=== PATIENT | male | born 1955 | race Caucasian/White ===

== ENCOUNTER 2018-01-21 18:06 | Inpatient (IN) ==
--- NOTE | 2018-01-21 17:52 | Internal Med History&Physical ---
Date of Encounter: 01/21/18 Time of Encounter: 17:47 Internal Medicine - H&P: HPI Chief complaint: Femoral neck fracture Admitted From: Direct Admit Plans for Post Hospital Care: Home History of present illness: Mr. Martinez is a 62 year old male with history of congestive heart failure, A. fib status post ablation and status post pacemaker currently on Xarelto, CKD3, diabetes, gout, hypertension, depression, BPH who was transferred from [facility] after he was found to have an acute fracture of the right femoral neck. The patient tells me that about 9 days ago or so he tripped over a cord as cryogen and fell on his right hip. He had pain ever since. He was evaluated at the time and no fracture was found. He became walker dependent since then and today his try to reach something on the ground and he felt that his left hip gave out and he fell to his side with no loss of consciousness. He presented to [facility] because of that and was found to have an acute fracture of the right femoral neck and was sent here. Orthopedics were consulted from the ED there. The patient denies any dizziness, chest pain, shortness of breath, abdominal pain, diarrhea, constipation, blurry vision, headache, nausea, vomiting, fevers, chills. He was noted to have lower extremity swelling and when I questioned him about that he told me that about a month ago he had about 35 pounds fluid weight gain. He has been working with his primary care physician on that and has lost about 17 pounds of that in the last 2 weeks. He was recently also diagnosed with gout and was put on prednisone and remains on 20 mg for today and tomorrow with plans to go to 10 mg for the 3 days after that. The patient at baseline is very active. He denies any chest pain. He can walk multiple blocks with no issues. 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 Laboratory workup done at [facility] showed leukocytosis of 23.1. Rest of laboratory work was unremarkable except for elevated glucose of 220. Past Med Surg Social Fam HX - Past Medical History Medical history: atrial fibrillation, CHF, coronary artery disease, diabetes, hypertension Additional medical history: Gout, Pacemaker Psychiatric history: depression - Past Surgical History Surgical History: cataract, pacemaker/AICD, other Additional surgical history: R KNEE SCOPE, Cardiac ablation, Multiple heart caths - Social History Smoking Status: Never smoker Smokeless Tobacco Status: No Alcohol use: none Drug use: none - Family History Father Hx Family Cardiac Disorders: Yes Hx Family Cancer: Yes Hx Family Endocrine Disorder: Yes Sister Hx Family Cardiac Disorders: Yes Internal Medicine - H&P: Meds Aspirin [Adult Low Dose Aspirin EC] 81 mg PO DAILY 03/30/15 [History] Lisinopril [Zestril] 10 mg PO DAILY 03/30/15 [History] Metformin HCl [Fortamet] 1,000 mg PO DAILY 05/15/16 [History] Metoprolol XL (24 HR) Succ [Toprol XL] 50 mg PO BID 05/15/16 [History] Potassium Chloride [K-Tab ER] 10 meq PO BID 05/15/16 [History] Sertraline [Zoloft] 100 mg PO DAILY 05/15/16 [History] Torsemide [Demadex] 60 mg PO BID 05/15/16 [History] Cinnamon Bark [Cinnamon] 1,000 mg PO BID 10/23/17 [History] Ibuprofen [Motrin] 600 mg PO Q6HR #30 tab 10/23/17 [Rx] Melatonin 10 mg PO HS 10/23/17 [History] Rivaroxaban [Xarelto] 20 mg PO DAILY 10/23/17 [History] Tamsulosin [Flomax] 0.4 mg PO DAILY 10/23/17 [History] HYDROcodone/Acet 5/325 mg [[place] 5-325 mg] 1 tab PO Q6H 4 Days #14 tab 01/12/18 [Rx] 3 Allergy/AdvReac Type Severity Reaction Status Date / Time tetanus toxoid, adsorbed Allergy Hives Verified 05/15/16 19:15 All Systems PM: A 10-system review of systems was performed and is negative for pertinent findings except as documented above in the HPI. Review of systems: All systems reviewed are negative except for as mentioned above - Constitutional Vitals: Temp Pulse Resp BP Pulse Ox 98.1 F 62 20 147/81 95 01/21/18 17:01 01/21/18 17:01 01/21/18 17:01 01/21/18 17:01 01/21/18 17:01 Exam: GEN: NAD HEENT: AT, NC, No cyanosis, oral mucosa is moist, No JVD Lymphatics: No lymphadenoapthy Eyes: Extrocular muscles intact, anicteric CVS:RRR. S1, S2, No m/r/g RESP: Diminished but no crackles ABD: Soft, NT, ND, +BS EXT: 2+ lower extremity edema, No rashes, 2+ DP NEURO: Nonfocal, CN II-XII intact, No focal motor or sensory deficits Psych: Cooperative, Not anxious or depressed - Assessment and plan (1) Femoral neck fracture Current Visit: Yes Status: Acute Assessment and plan: We will admit the patient with a consult to orthopedics. Also consult cardiology for preop clearance. We will check an echocardiogram and an EKG. Pain control. Nothing by mouth after midnight. Qualifiers: Encounter type: initial encounter Fracture type: closed Laterality: right Qualified Code(s): S72.001A - Fracture of unspecified part of neck of right femur, initial encounter for closed fracture (2) CHF (congestive heart failure) Current Visit: Yes Status: Acute Assessment and plan: Patient is not in any respiratory distress. He does have lower extremity edema. He tells me he has had about 35 pounds weight gain over the last month and lost about 17 pounds of it on torsemide. We will check a BNP. Check a chest x-ray. An echo has been ordered. Resume torsemide. Consult cardiology for preop clearance as above. Qualifiers: Heart failure type: unspecified Heart failure chronicity: acute on chronic Qualified Code(s): I50.9 - Heart failure, unspecified (3) CKD (chronic kidney disease), stage III Current Visit: Yes Status: Acute Assessment and plan: Stable. We will monitor. (4) Diabetes mellitus Current Visit: Yes Status: Acute Assessment and plan: We will place the patient on insulin sliding scale. Accu-Cheks. 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 He has no signs of infection. Qualifiers: Leukocytosis type: unspecified Qualified Code(s): D72.829 - Elevated white blood cell count, unspecified (6) Gout Current Visit: Yes Status: Acute Assessment and plan: Patient has been receiving prednisone. We will hold off on further prednisone to allow for surgical site healing as he is expected to go to surgery. Qualifiers: Gout site: toe Gout etiology: unspecified cause Chronicity: unspecified Laterality: right Qualified Code(s): M10.9 - Gout, unspecified (7) Afib Current Visit: Yes Status: Acute Assessment and plan: Patient is on Xarelto for anticoagulation which I will hold in anticipation for surgery. Continue rate controlling agents. Qualifiers: Atrial fibrillation type: chronic Qualified Code(s): I48.2 - Chronic atrial fibrillation (8) DVT prophylaxis Current Visit: Yes Status: Acute Assessment and plan: Hold Xarelto for now. - Time Spent With Patient Total time spent is greater than 50% in coordination of care (as documented) at patient's floor/unit and/or counseling patient:
[~2018-01-21 18:06] MED LIST: *HR* Dextrose 50 % in Water (Syg) 50 ML SYRINGE IVP PRN; D5% in Water 1,000 ML IVC PRN; Dextrose Gel 15 GM/37.5 ML TUBE PO PRN; Naloxone 0.4 MG/ML INJ IVP PRN
--- NOTE | 2018-01-21 18:45 | Orthopedic Consult Note ---
Date of Encounter: 01/21/18 Time of Encounter: 18:42 Assessment and Plan (1) Femoral neck fracture Current Visit: Yes Status: Acute I did discuss the diagnosis in detail with the patient. He has a displaced right femoral neck fracture. I did discuss the treatment options and my recommendation given his age is for total hip arthroplasty. I discussed this with my partner Dr. Louise who performs total hips and his plan is to perform the procedure on Wednesday. Dr. Louise see the patient Wednesday morning to discuss this further with the patient. He will need medical clearance and holding of his Xarelto if medically reasonable per the primary team. I will order an [facility] CT scan of the right hip. Qualifiers: Encounter type: initial encounter Fracture type: closed Laterality: right Qualified Code(s): S72.001A - Fracture of unspecified part of neck of right femur, initial encounter for closed fracture History of Present Illness HPI: Mr. Martinez is a 62 year old male. He did sustain a fall about 10 days ago where he injured his right hip. He is seen in the [facility] emergency department where x-rays did not show any fractures. He is having difficulties walking since that time and was bending over and felt a pop in his right hip associate was significant pain. A CT scan demonstrated a displaced femoral neck fracture and he is transferred to our facility for definitive management. He complains of isolated pain to the right hip and groin region. It is worse with any movement and better with rest. No numbness, tingling, or any other associated signs or symptoms or modifying factors. Past Med Surg Social Fam HX - Past Medical History Medical history: atrial fibrillation, CHF, coronary artery disease, diabetes, hypertension Additional medical history: Gout, Pacemaker Psychiatric history: depression - Past Surgical History Surgical History: cataract, pacemaker/AICD, other Additional surgical history: R KNEE SCOPE, Cardiac ablation, Multiple heart caths - Social History Smoking Status: Never smoker Smokeless Tobacco Status: No Alcohol use: none Drug use: none - Family History Father Hx Family Cardiac Disorders: Yes Hx Family Cancer: Yes Hx Family Endocrine Disorder: Yes Sister Hx Family Cardiac Disorders: Yes Medications and Allergies Aspirin [Adult Low Dose Aspirin EC] 81 mg PO DAILY 03/30/15 [History] Metoprolol XL (24 HR) Succ [Toprol XL] 50 mg PO BID 05/15/16 [History] Potassium Chloride [K-Tab ER] 10 meq PO BID 05/15/16 [History] Sertraline [Zoloft] 100 mg PO DAILY 05/15/16 [History] Torsemide [Demadex] 60 mg PO BID 05/15/16 [History] Cinnamon Bark [Cinnamon] 1,000 mg PO BID 10/23/17 [History] Ibuprofen [Motrin] 600 mg PO Q6HR #30 tab 10/23/17 [Rx] Melatonin 10 mg PO HS 10/23/17 [History] Rivaroxaban [Xarelto] 20 mg PO DAILY 10/23/17 [History] Tamsulosin [Flomax] 0.4 mg PO DAILY 10/23/17 [History] HYDROcodone/Acet 5/325 mg [[place] 5-325 mg] 1 tab PO Q6H 4 Days #14 tab 01/12/18 [Rx] Polyethylene Glycol 3350 [MiraLAX] 17 gm PO DAILY 01/21/18 [History] SitaGLIPtin [Januvia] 100 mg PO DAILY 01/21/18 [History] 3 Allergy/AdvReac Type Severity Reaction Status Date / Time tetanus toxoid, adsorbed Allergy Hives Verified 05/15/16 19:15 All Systems Reviewed: Constitutional and musculoskeletal systems were reviewed and are negative unless otherwise stated in history of present illness. Physical Exam - Constitutional Vitals: Temp Pulse Resp BP Pulse Ox 98.4 F 60 18 160/79 97 01/21/18 18:34 01/21/18 18:34 01/21/18 18:34 01/21/18 18:34 01/21/18 18:34 Constitutional -Vitals reviewed -The patient is well developed and well nourished. -Mood is pleasant. -The patient is well groomed. Psychiatric -The patient is fully alert and oriented x 3. Respiratory: -Respiratory effort normal Abdomen: -Soft abdomen -Non tender -Non distended: Left upper extremity: -No deformities. The overlying skin is intact. No obvious signs of acute trauma. -No tenderness to palpation throughout. -No significant pain with passive motion of the shoulder, elbow, wrist, and fingers within the limits of the bed. -Able to make an "OK" sign, cross the index and long fingers, and extend the thumb. -Sensation grossly intact to light touch throughout the median, radial, and ulnar distributions. -Radial pulse is present; Fingers have good capillary refill. Right upper extremity: -No deformities. The overlying skin is intact. No obvious signs of acute trauma. -No tenderness to palpation throughout. -No significant pain with passive motion of the shoulder, elbow, wrist, and fingers within the limits of the bed. -Able to make an "OK" sign, cross the index and long fingers, and extend the thumb. -Sensation grossly intact to light touch throughout the median, radial, and ulnar distributions. -Radial pulse is present; Fingers have good capillary refill. Left lower extremity: -No deformities. The overlying skin is intact. No obvious signs of acute trauma. -No tenderness to palpation throughout. -No pain with passive motion of the hip, knee, ankle, and toes within the limits of the bed. -No pain with axial loading of the thigh. -Able to dorsiflex and plantarflex the ankle and toes. -Sensation is grossly intact to light touch throughout the sural, saphenous, superficial peroneal, and deep peroneal distributions. -Toes have good capillary refill. Right lower extremity: -The extremity is shortened and externally rotated. The overlying skin is intact. -There is tenderness in the groin region as well as the proximal lateral thigh. -I did not range the hip due to the known fracture. -No tenderness along the distal thigh, leg, ankle, foot, or toes. -Able to dorsiflex and plantarflex the ankle and toes. -Sensation is grossly intact to light touch throughout the sural, saphenous, superficial peroneal, and deep peroneal distributions. -Toes have good capillary refill. Diagnostic Imaging: I did personally review and interpret the CT scan of the right hip which shows a displaced right femoral neck fracture. Surgical clips from a prior vascular procedure noted. Results - Labs Labs: All other labs normal.
[2018-01-21] MEDS ORDERED: Perflutren Lipid Microsphere 1.3 ML in 0.9 % Sodium Chloride 8.7 ML IVP ONE (20:07)
[2018-01-21] MEDS ORDERED: Perflutren Lipid Microsphere 2 ML VIAL ONE (20:11)
[2018-01-21] MEDS ORDERED: *HR* Rivaroxaban 10 MG TABLET PO ONE (20:15)
[2018-01-21] MEDS: Insulin LISPRO 300 UNITS/3 ML VIAL SQ SCH (21:00)
[2018-01-21] MEDS: Metoprolol XL (24 HR) Succ 50 MG TAB.ER.24H PO SCH (21:00)
[2018-01-21] MEDS: *HR* HYDROcodone/Acet 5/325 mg TABLET PO PRN (21:01)
[2018-01-21] MEDS: Melatonin 3 MG TABLET PO SCH (21:01)
[2018-01-21] MEDS: Torsemide 20 MG TABLET PO SCH (21:02)
[2018-01-21 21:33] LABS: Bilirubin,Urine Negative (Negative); Blood,Urine Negative (Negative); Clarity,Urine Cloudy (Clear); Color,Urine Yellow (Yellow); Glucose,Urine (UA) Normal (Normal); Ketones,Urine Negative (Negative); Leukocyte Esterase,Urine Moderate (Negative); Nitrite,Urine Negative (Negative); Protein,Urine Negative (Neg-Trace); Specific Gravity,Urine 1.015 (1.010-1.025); Urobilinogen,Urine Normal (Normal)
[2018-01-21 21:37] LABS: Bacteria,Urine Many per hpf (None-Few); Hyaline Casts,Urine None Seen per lpf (None-Few); RBC,Urine 0-3 per hpf (0-3); Squamous Epithelial Cell,Urine Moderate per lpf (None-Few); WBC,Urine 15-30 per hpf (0-3)
[2018-01-21] MEDS: Acetaminophen 325 MG TABLET PO PRN (23:56)
[2018-01-22 01:17] LABS: Basophils % 0.2 %; Eosinophils % 0.2 %; Hemoglobin 13.5 g/dL (12.9-16.9); Immature Granulocytes % 1.1 % (0-4); Lymphocytes # 1.5 K/mcL (0.6-4.6); Lymphocytes % 8.2 %; Mean Corpuscular HGB Conc 32.9 g/dL (31.6-35.5); Mean Corpuscular Hemoglobin 29.2 pg (28.0-33.3); Mean Corpuscular Volume 88.7 fL (83.0-100.0); Mean Platelet Volume 11.3 fL (9.4-12.4); Monocytes % 10.4 %; Neutrophils # 14.9 K/mcL (1.6-8.9); Platelet Count 205 K/mcL (140-400); Red Blood Count 4.62 M/mcL (4.19-5.50); Red Cell Distribution Width 14.8 % (11.5-14.5); Segmented Neutrophils % 79.9 %
[2018-01-22 01:24] LABS: INR 1.9; Prothrombin Time 20.9 Seconds (9.4-12.1)
[2018-01-22 01:34] LABS: BUN/Creatinine Ratio 23 (6-26); Blood Urea Nitrogen 28 mg/dL (8-23); Calcium 9.3 mg/dL (8.6-10.3); Carbon Dioxide 28 mEq/L (23-29); Chloride 96 mEq/L (98-107); Glucose 300 mg/dL (70-105); Magnesium 2.2 mg/dL (1.6-2.6); Osmolality,Calculated 299 (280-300); Sodium 136 mEq/L (136-145); eGFR For African Americans > 60 (> 60); eGFR For Non-African Americans > 60 (> 60)
[2018-01-22] MEDS: *HR* HYDROcodone/Acet 5/325 mg TABLET PO PRN (04:41)
[2018-01-22] MEDS: Torsemide 20 MG TABLET PO SCH ×2 (07:52→16:18)
[2018-01-22] MEDS: Metoprolol XL (24 HR) Succ 50 MG TAB.ER.24H PO SCH ×2 (07:53→19:57)
[2018-01-22] MEDS: Insulin LISPRO 300 UNITS/3 ML VIAL SQ SCH ×4 (07:54→20:17)
--- NOTE | 2018-01-22 08:47 | Orthopedics Progress Note ---
Date of Encounter: 01/22/18 Time of Encounter: 08:45 - Assessment and Plan (1) Femoral neck fracture Current Visit: Yes Status: Acute Qualifiers: Encounter type: initial encounter Fracture type: closed Laterality: right Qualified Code(s): S72.001A - Fracture of unspecified part of neck of right femur, initial encounter for closed fracture Subjective Interval history: S: The patient is resting in bed though he does have significant right hip and groin pain. Currently he is only getting [place] and Tylenol. O: Afebrile on the vital signs are stable Right hip and groin pain with any motion of the right hip. Neurovascularly intact distally A: Right displaced femoral neck fracture P: Plan is for robotic total hip arthroplasty on Wednesday with my partner Dr. Louise I did adjust the patient's pain medication and change the [place] to Percocet as well as adding sublingual oxycodone and Flexeril. Hold Xarelto tonight and tomorrow. Objective Vital signs: Vital Signs Temp Pulse Resp BP Pulse Ox 01/22/18 07:21 98.5 F 87 20 155/84 98 01/22/18 02:45 98.6 F 58 16 143/81 99 01/21/18 23:14 99.2 F 63 18 153/72 98 01/21/18 18:34 98.4 F 60 18 160/79 97 01/21/18 17:01 98.1 F 62 20 147/81 95 Intake and Output 01/21/18 01/22/18 01/22/18 23:59 07:59 15:59 Intake Total 600 / 600 Output Total 525 / 525 1200 / 1200 Balance 75 / 75 -1200 / -1200 Intake: Oral 600 / 600 Output: Urine 525 / 525 1200 / 1200 Other: Weight 111.3 kg Blood Glucose* 207 215 - Labs CBC & BMP: 01/22/18 00:41 01/22/18 00:41 Labs: Abnormal lab results WBC 18.7 K/mcL (4.3-11.1) H 01/22/18 00:41 RDW 14.8 % (11.5-14.5) H 01/22/18 00:41 Neutrophils # 14.9 K/mcL (1.6-8.9) H 01/22/18 00:41 Monocytes # 2.0 K/mcL (0.0-1.3) H 01/22/18 00:41 PT 20.9 Seconds (9.4-12.1) H 01/22/18 00:41 Chloride 96 mEq/L (98-107) L 01/22/18 00:41 BUN 28 mg/dL (8-23) H 01/22/18 00:41 Glucose 300 mg/dL (70-105) H 01/22/18 00:41 POC Glucose 207 mg/dL (70-99) H 01/21/18 20:48 B-Natriuretic Peptide 253 pg/mL (Less than 100) H 01/21/18 18:04 Urine Clarity Cloudy (Clear) A 01/21/18 21:05 Ur Leukocyte Esterase Moderate (Negative) H 01/21/18 21:05 Urine Microscopic WBC 15-30 per hpf (0-3) H 01/21/18 21:05 Ur Squamous Epith Cells Moderate per lpf (None-Few) H 01/21/18 21:05 Urine Bacteria Many per hpf (None-Few) H 01/21/18 21:05 Ur Culture Indicated? YES (NO) A 01/21/18 21:05
--- NOTE | 2018-01-22 09:18 | Electrophysiology Consult Note ---
Date of Encounter: 01/22/18 Time of Encounter: 09:13 Assessment and Plan (1) Afib Current Visit: Yes Status: Acute Known AF, rate controlled. Possible prior AVN ablation and AF ablation. Qualifiers: Atrial fibrillation type: paroxysmal Qualified Code(s): I48.0 - Paroxysmal atrial fibrillation (2) Femoral neck fracture Current Visit: Yes Status: Acute Low risk for surgery. No further testing needed. Qualifiers: Encounter type: initial encounter Fracture type: closed Laterality: right Qualified Code(s): S72.001A - Fracture of unspecified part of neck of right femur, initial encounter for closed fracture Discussion w patient/family: The assessment and plan as outlined above was discussed with the patient and/or family members who expressed understanding and agreement. All questions were answered. Thank you for involving us in the care of your patient. Please call with any questions. History of Present Illness Consult date: 01/22/18 Requesting physician: Vladimir Louise Consult reason: Pre op Chief complaint: Hip pain History of present illness: Mr. Martinez is a 62 year old male with history of PAF and bradycardia S/P pacemaker. He suffered an mechanical fall and requires hip surgery. 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 He has had subequent heart caths and stress tests that have been negative. he denies chest pain or SOB. Past Med Surg Social Fam HX - Past Medical History Medical history: atrial fibrillation, CHF, coronary artery disease, diabetes, hypertension Additional medical history: Gout, Pacemaker Psychiatric history: depression - Past Surgical History Surgical History: cataract, pacemaker/AICD, other Additional surgical history: R KNEE SCOPE, Cardiac ablation, Multiple heart caths - Social History Smoking Status: Never smoker Smokeless Tobacco Status: No Alcohol use: none Drug use: none - Family History Father Hx Family Cardiac Disorders: Yes Hx Family Cancer: Yes Hx Family Endocrine Disorder: Yes Sister Hx Family Cardiac Disorders: Yes Medications and Allergies Aspirin [Adult Low Dose Aspirin EC] 81 mg PO DAILY 03/30/15 [History] Metoprolol XL (24 HR) Succ [Toprol XL] 50 mg PO BID 05/15/16 [History] Potassium Chloride [K-Tab ER] 10 meq PO BID 05/15/16 [History] Sertraline [Zoloft] 100 mg PO DAILY 05/15/16 [History] Torsemide [Demadex] 60 mg PO BID 05/15/16 [History] Cinnamon Bark [Cinnamon] 1,000 mg PO BID 10/23/17 [History] Ibuprofen [Motrin] 600 mg PO Q6HR #30 tab 10/23/17 [Rx] Melatonin 10 mg PO HS 10/23/17 [History] Rivaroxaban [Xarelto] 20 mg PO DAILY 10/23/17 [History] Tamsulosin [Flomax] 0.4 mg PO DAILY 10/23/17 [History] HYDROcodone/Acet 5/325 mg [Sharon 5-325 mg] 1 tab PO Q6H 4 Days #14 tab 01/12/18 [Rx] Polyethylene Glycol 3350 [MiraLAX] 17 gm PO DAILY 01/21/18 [History] SitaGLIPtin [Januvia] 100 mg PO DAILY 01/21/18 [History] 3 Allergy/AdvReac Type Severity Reaction Status Date / Time tetanus toxoid, adsorbed Allergy Hives Verified 05/15/16 19:15 All Systems Review: The remainder of the systems were reviewed and are negative Physical Examination Vital Signs, Last 4 Hours Temp Pulse Resp BP Pulse Ox 01/22/18 07:21 98.5 F 87 20 155/84 98 General: Conversant, No Apparent Distress HEENT: Atraumatic, Normocephaly, Mucus Membranes Moist Neck: No JVD, Normal carotid pulses Cardiac: Other (Regular, pacer site normal) Lungs: Normal Breath Sounds, No Wheeze, Rales, Rhonchi Neuro: Alert and responsive, No focal deficits noted Skin: No rashes noted on visualized skin Results 01/22/18 00:41 01/22/18 00:41 Lab Results 01/21/18 01/22/18 01/22/18 18:04 00:41 00:41 WBC 18.7 H Hgb 13.5 Hct 41.0 Plt Count 205 INR 1.9 Sodium Potassium Chloride Carbon Dioxide BUN Creatinine Glucose Calcium Magnesium B-Natriuretic Peptide 253 H 01/22/18 00:41 WBC Hgb Hct Plt Count INR Sodium 136 Potassium 4.0 Chloride 96 L Carbon Dioxide 28 BUN 28 H Creatinine 1.22 Glucose 300 H Calcium 9.3 Magnesium 2.2 B-Natriuretic Peptide - Imaging and Cardiology Echo: report reviewed (Low normal systolic function.) - EKG Interpretation EKG results cardiology: personally reviewed (AF, ventricular pacing)
[2018-01-22] MEDS: *HR* OxyCODONE/APAP 5/325 TABLET PO PRN ×3 (09:19→20:09)
[2018-01-22] MEDS: OXYCODONE Oral CONC 10 MG/0.5 ML ORAL.SYG SL PRN (12:07)
--- NOTE | 2018-01-22 14:59 | Internal Med Progress Note ---
Date of Encounter: 01/22/18 Time of Encounter: 14:25 - Assessment and plan (1) Femoral neck fracture Current Visit: Yes Status: Acute Assessment and plan: Appreciate ortho input. Plan for total hip replacement on Wednesday. Pain control. Qualifiers: Encounter type: subsequent encounter Fracture type: closed Laterality: right Qualified Code(s): S72.001D - Fracture of unspecified part of neck of right femur, subsequent encounter for closed fracture with routine healing (2) CHF (congestive heart failure) Current Visit: Yes Status: Acute Assessment and plan: Currently on Torsemide. Echo shows EF 50%. Appreciate cardiology input today. Qualifiers: Heart failure type: diastolic Heart failure chronicity: acute on chronic Qualified Code(s): I50.33 - Acute on chronic diastolic (congestive) heart failure (3) CKD (chronic kidney disease), stage III Current Visit: Yes Status: Acute Assessment and plan: Stable. We will monitor. Avoid nephrotoxins. 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 He has no signs of infection. Qualifiers: Leukocytosis type: leukemoid reaction Qualified Code(s): D72.823 - Leukemoid reaction (6) Gout Current Visit: Yes Status: Acute Assessment and plan: Patient has been receiving prednisone. We will hold off on further prednisone to allow for surgical site healing as he is expected to go to surgery. Qualifiers: Gout site: toe Gout etiology: unspecified cause Chronicity: unspecified Laterality: right Qualified Code(s): M10.9 - Gout, unspecified (7) DVT prophylaxis Current Visit: Yes Status: Acute (8) Afib Current Visit: Yes Status: Acute Assessment and plan: Patient is on Xarelto for anticoagulation which I will hold in anticipation for surgery. Continue rate controlling agents. Appreciate cardiology input. Qualifiers: Atrial fibrillation type: paroxysmal Qualified Code(s): I48.0 - Paroxysmal atrial fibrillation - Time Spent With Patient Total time spent is greater than 50% in coordination of care (as documented) at patient's floor/unit and/or counseling patient: - Subjective Interval history: Mr Martinez is currently admitted with fracture R hip. He remains moderate to high risk due to potential for worsening clinical status. Mr Martinez is having pain. Meds were changed today. No fever or chills. Awaiting surgery. Hard to get comfortable. - Constitutional Vitals: Temp Pulse Resp BP Pulse Ox 99.1 F 62 18 137/77 98 01/22/18 11:27 01/22/18 11:27 01/22/18 11:27 01/22/18 11:27 01/22/18 11:27 General appearance: Present: A&O X 3, answers questions appropriately - Head Head exam: Present: normocephalic - Eye Eye exam: Present: conjuntiva pink - ENT ENT exam: Present: mucous membranes moist - Respiratory Respiratory exam: Present: CTAB. Absent: rales, rhonchi, wheezes - Cardiovascular Cardiovascular exam: Present: RRR. Absent: tachycardia - GI/Abdominal GI/Abdominal exam: Present: soft. Absent: tenderness - Extremities Exam Extremities exam: Present: tenderness, warm Additional comments: R hip pain - Neurological Exam Neurological exam: Present: alert, oriented X3 - Skin Skin exam: Present: dry, warm Internal Medicine: Result - Labs CBC & Chem 7: 01/22/18 00:41 01/22/18 00:41 Labs: Short CBC 01/22/18 Range/Units 00:41 WBC 18.7 H (4.3-11.1) K/mcL Hgb 13.5 (12.9-16.9) g/dL Hct 41.0 (37.5-50.1) % Plt Count 205 (140-400) K/mcL Neutrophils # 14.9 H (1.6-8.9) K/mcL BMP 01/22/18 00:41 Sodium 136 Potassium 4.0 Chloride 96 L Carbon Dioxide 28 BUN 28 H Creatinine 1.22 Glucose 300 H Calcium 9.3 Urine 01/21/18 Range/Units 21:05 Urine Color Yellow (Yellow) Urine Clarity Cloudy A (Clear) Urine pH 6.0 (5.0-8.0) pH Units Ur Specific [place] 1.015 (1.010-1.025) Urine Protein Negative (Neg-Trace) mg/dL Urine Glucose (UA) Normal (Normal) mg/dL - ABG Interpretation ABG results: PT/INR, D-dimer PT 20.9 Seconds (9.4-12.1) H 01/22/18 00:41 - Impressions Impressions Chest X-Ray 01/21/18 17:34 IMPRESSION: No acute cardiopulmonary disease. Mild cardiomegaly without failure. D/ / Keegan Peña MD / Keegan Peña MD Interpreting Provider: Keegan Peña MD Echocardiogram 01/21/18 17:34 Impressions: LVEF 50%. Normal LV chamber size, wall thickness and function. Indeterminate diastolic function. Atypical septal motion consistent with paced rhythm. Normal right ventricular structure and function. No significant valvular dysfunction. No evidence of pulmonary hypertension. A device lead was visualized in the right atrium and right ventricle. Left Ventricular Wall Motion: Rest Echo Findings All wall segments showed normal motion. Findings: Study Quality * Technically adequate exam. ECG Findings * Paced rhythm. Left Ventricle * LVEF 50%. * Normal LV chamber size, wall thickness and function. * Indeterminate diastolic function. * Atypical septal motion consistent with paced rhythm. Right Ventricle * Normal right ventricular structure and function. Left Atrium * Moderately dilated left atrium. Right Atrium * Normal right atrial size. Aortic Valve * Aortic valve not well visualized. * Grossly calcified aortic valve leaflets. * No aortic regurgitation. * No aortic stenosis. Mitral Valve * Mild mitral annular calcification * Trace mitral regurgitation. * No mitral stenosis. Tricuspid Valve * Normal tricuspid valve structure and function. * Trace tricuspid regurgitation. * No evidence of pulmonary hypertension. Pulmonic Valve * Pulmonic valve is not well visualized. Aorta * Normally sized aortic root. Pericardium * The pericardium appears normal. IVC * Normal IVC dimensions and inspiratory collapse. Pulmonary Artery * Normal visualized portions of the main pulmonary artery. Device lead * A device lead was visualized in the right atrium and right ventricle. Hip CT 01/21/18 19:49 IMPRESSION: 1. Limited CT [facility] protocol for preoperative planning. 2. Re- demonstration of acute transcervical right femoral neck fracture. 3. Moderate osteoarthritis of the bilateral hips. D/ / Ian Rod MD / Ian Rod MD Interpreting Provider: Ian Rod MD
[2018-01-22] MEDS ORDERED: *HR* Enoxaparin 30 MG/0.3 ML SYRINGE SQ ONE (15:28)
[2018-01-22] MEDS: Melatonin 3 MG TABLET PO SCH (19:57)
[2018-01-22] MEDS: Insulin DETEMIR 100 UNIT/ML X5UNITS SQ SCH (20:11)
[2018-01-23 01:59] LABS: Hematocrit 40.2 % (37.5-50.1); Mean Corpuscular HGB Conc 32.3 g/dL (31.6-35.5); Mean Corpuscular Hemoglobin 28.1 pg (28.0-33.3); Mean Platelet Volume 11.1 fL (9.4-12.4); Platelet Count 153 K/mcL (140-400); Red Blood Count 4.62 M/mcL (4.19-5.50); Red Cell Distribution Width 15.1 % (11.5-14.5)
[2018-01-23 02:20] LABS: BUN/Creatinine Ratio 21 (6-26); Blood Urea Nitrogen 28 mg/dL (8-23); Calcium 9.4 mg/dL (8.6-10.3); Carbon Dioxide 32 mEq/L (23-29); Chloride 96 mEq/L (98-107); Glucose 151 mg/dL (70-105); Magnesium 2.1 mg/dL (1.6-2.6); Osmolality,Calculated 288 (280-300); Potassium 3.3 mEq/L (3.5-5.1); Sodium 135 mEq/L (136-145); eGFR For African Americans > 60 (> 60); eGFR For Non-African Americans 54 (> 60)
[2018-01-23] MEDS: *HR* OxyCODONE/APAP 5/325 TABLET PO PRN ×3 (02:35→20:42)
[2018-01-23] MEDS ORDERED: *HR* Enoxaparin 30 MG/0.3 ML SYRINGE SQ ONE (06:00)
[2018-01-23] MEDS: Insulin LISPRO 300 UNITS/3 ML VIAL SQ SCH ×4 (07:45→22:36)
[2018-01-23] MEDS: OXYCODONE Oral CONC 10 MG/0.5 ML ORAL.SYG SL PRN ×2 (07:49→16:51)
[2018-01-23] MEDS: Metoprolol XL (24 HR) Succ 50 MG TAB.ER.24H PO SCH ×2 (07:49→20:42)
[2018-01-23] MEDS: Torsemide 20 MG TABLET PO SCH ×2 (07:49→16:50)
--- NOTE | 2018-01-23 09:42 | Orthopedics Progress Note ---
Date of Encounter: 01/23/18 Time of Encounter: 09:40 - Assessment and Plan (1) Femoral neck fracture Current Visit: Yes Status: Acute Qualifiers: Encounter type: subsequent encounter Fracture type: closed Laterality: right Qualified Code(s): S72.001D - Fracture of unspecified part of neck of right femur, subsequent encounter for closed fracture with routine healing Subjective Interval history: S: Pain in the right hip and much better control. O: Afebrile on the vital signs are stable Right hip and groin pain with any motion of the right hip. Neurovascularly intact distally A: Right displaced femoral neck fracture P: Plan for robotic right total hip tomorrow with Dr. Louise. Objective Vital signs: Vital Signs Temp Pulse Resp BP Pulse Ox 01/23/18 07:53 98 01/23/18 06:30 98.4 F 68 16 129/68 98 01/23/18 04:25 98.6 F 60 16 126/72 96 01/22/18 23:24 98.6 F 61 14 132/72 99 01/22/18 20:09 98.6 F 62 16 127/70 93 01/22/18 15:53 98.9 F 58 20 117/52 97 01/22/18 11:27 99.1 F 62 18 137/77 98 Intake and Output 01/22/18 01/23/18 01/23/18 23:59 07:59 15:59 Intake Total 500 / 500 Output Total 500 / 500 550 / 550 Balance 0 / 0 -550 / -550 Intake: Oral 500 / 500 Output: Urine 500 / 500 550 / 550 Other: Blood Glucose* 154 101 - Labs CBC & BMP: 01/23/18 00:57 01/23/18 00:57 Labs: Abnormal lab results WBC 14.7 K/mcL (4.3-11.1) H 01/23/18 00:57 RDW 15.1 % (11.5-14.5) H 01/23/18 00:57 Neutrophils # 14.9 K/mcL (1.6-8.9) H 01/22/18 00:41 Monocytes # 2.0 K/mcL (0.0-1.3) H 01/22/18 00:41 PT 20.9 Seconds (9.4-12.1) H 01/22/18 00:41 Sodium 135 mEq/L (136-145) L 01/23/18 00:57 Potassium 3.3 mEq/L (3.5-5.1) L 01/23/18 00:57 Chloride 96 mEq/L (98-107) L 01/23/18 00:57 Carbon Dioxide 32 mEq/L (23-29) H 01/23/18 00:57 BUN 28 mg/dL (8-23) H 01/23/18 00:57 Creatinine 1.34 mg/dL (0.70-1.30) H 01/23/18 00:57 Est GFR (Non-Af Amer) 54 (> 60) L 01/23/18 00:57 Glucose 151 mg/dL (70-105) H 01/23/18 00:57 POC Glucose 154 mg/dL (70-99) H 01/22/18 20:15 B-Natriuretic Peptide 253 pg/mL (Less than 100) H 01/21/18 18:04 Urine Clarity Cloudy (Clear) A 01/21/18 21:05 Ur Leukocyte Esterase Moderate (Negative) H 01/21/18 21:05 Urine Microscopic WBC 15-30 per hpf (0-3) H 01/21/18 21:05 Ur Squamous Epith Cells Moderate per lpf (None-Few) H 01/21/18 21:05 Urine Bacteria Many per hpf (None-Few) H 01/21/18 21:05 Ur Culture Indicated? YES (NO) A 01/21/18 21:05 - VTE Documentation of Mechanical Device: Intermittent pneumatic compression device
--- NOTE | 2018-01-23 11:05 | Internal Med Progress Note ---
Date of Encounter: 01/23/18 Time of Encounter: 10:30 - Assessment and plan (1) Femoral neck fracture Current Visit: Yes Status: Acute Assessment and plan: Appreciate ortho input. Plan for total hip replacement tomorrow. Pain seems better controlled today. Qualifiers: Encounter type: subsequent encounter Fracture type: closed Laterality: right Qualified Code(s): S72.001D - Fracture of unspecified part of neck of right femur, subsequent encounter for closed fracture with routine healing (2) CHF (congestive heart failure) Current Visit: Yes Status: Chronic Assessment and plan: Currently on Torsemide. Symptoms appear to have resolved at this time. Qualifiers: Heart failure type: diastolic Heart failure chronicity: chronic Qualified Code(s): I50.32 - Chronic diastolic (congestive) heart failure (3) CKD (chronic kidney disease), stage III Current Visit: Yes Status: Chronic Assessment and plan: Stable. We will monitor. Avoid nephrotoxins. (4) Diabetes mellitus Current Visit: Yes Status: Chronic Assessment and plan: Currently on accuchecks and coverage. 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 Qualifiers: Leukocytosis type: leukemoid reaction Qualified Code(s): D72.823 - Leukemoid reaction (6) Gout Current Visit: Yes Status: Acute Assessment and plan: Patient has been receiving prednisone. No symptoms at this time. Prednisone held. Qualifiers: Gout site: toe Gout etiology: unspecified cause Chronicity: unspecified Laterality: right Qualified Code(s): M10.9 - Gout, unspecified (7) DVT prophylaxis Current Visit: Yes Status: Acute (8) Afib Current Visit: Yes Status: Acute Assessment and plan: Patient is on Xarelto for anticoagulation which is held in anticipation for surgery. Continue rate controlling agents. Appreciate cardiology input. Qualifiers: Atrial fibrillation type: paroxysmal Qualified Code(s): I48.0 - Paroxysmal atrial fibrillation - Time Spent With Patient Total time spent is greater than 50% in coordination of care (as documented) at patient's floor/unit and/or counseling patient: - Subjective Interval history: Mr Martinez is currently admitted with fracture R hip. He remains moderate to high risk due to potential for worsening clinical status. Mr Martinez feels his pain is better controlled today. No fever or chills. No CP or SOB. To have surgery tomorrow. - Constitutional Vitals: Temp Pulse Resp BP Pulse Ox 98.4 F 68 16 129/68 98 01/23/18 06:30 01/23/18 06:30 01/23/18 06:30 01/23/18 06:30 01/23/18 07:53 General appearance: Present: A&O X 3, answers questions appropriately - Head Head exam: Present: normocephalic - Eye Eye exam: Present: conjuntiva pink - ENT ENT exam: Present: mucous membranes moist - Respiratory Respiratory exam: Present: CTAB. Absent: rales, rhonchi, wheezes - Cardiovascular Cardiovascular exam: Present: RRR. Absent: tachycardia - GI/Abdominal GI/Abdominal exam: Present: soft. Absent: tenderness - Extremities Exam Extremities exam: Present: tenderness, warm - Neurological Exam Neurological exam: Present: alert, oriented X3 - Skin Skin exam: Present: dry, warm Internal Medicine: Result - Labs CBC & Chem 7: 01/23/18 00:57 01/23/18 00:57 Labs: Short CBC 01/23/18 Range/Units 00:57 WBC 14.7 H (4.3-11.1) K/mcL Hgb 13.0 (12.9-16.9) g/dL Hct 40.2 (37.5-50.1) % Plt Count 153 (140-400) K/mcL BMP 01/23/18 00:57 Sodium 135 L Potassium 3.3 L Chloride 96 L Carbon Dioxide 32 H BUN 28 H Creatinine 1.34 H Glucose 151 H Calcium 9.4 - ABG Interpretation ABG results: PT/INR, D-dimer PT 20.9 Seconds (9.4-12.1) H 01/22/18 00:41 - VTE Documentation of Mechanical Device: Intermittent pneumatic compression device
[2018-01-23] MEDS: Melatonin 3 MG TABLET PO SCH (20:41)
[2018-01-23] MEDS: Insulin DETEMIR 100 UNIT/ML X5UNITS SQ SCH (20:43)
--- NOTE | 2018-01-23 23:31 | Anesthesia Evaluation PreOp ---
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: Other (Anxiety/Depression) Other Medical History: Renal (stage 3 CKD), Other (Recent Hx of gout including Prednisone course) Anesthesia History: Past Anesthesia (R-knee scope, Cardiac ablation, Multiple Heart Caths) Alcohol Use: none Drug use: none Medications and Allergies Metoprolol XL (24 HR) Succ [Toprol XL] 50 mg PO BID 05/15/16 [History] Sertraline [Zoloft] 100 mg PO DAILY 05/15/16 [History] Torsemide [Demadex] 60 mg PO BID 05/15/16 [History] Cinnamon Bark [Cinnamon] 1,000 mg PO BID 10/23/17 [History] Melatonin 10 mg PO HS 10/23/17 [History] Rivaroxaban [Xarelto] 20 mg PO DAILY 10/23/17 [History] Tamsulosin [Flomax] 0.4 mg PO DAILY 10/23/17 [History] HYDROcodone/Acet 5/325 mg [[place] 5-325 mg] 1 tab PO Q6H 4 Days #14 tab 01/12/18 [Rx] Polyethylene Glycol 3350 [MiraLAX] 17 gm PO DAILY 01/21/18 [History] SitaGLIPtin [Januvia] 100 mg PO DAILY 01/21/18 [History] Aspirin [Adult Aspirin Regimen] 81 mg PO DAILY 01/22/18 [History] C/Sourcherry/Celery/Grape Seed [Tart [place] Capsule] 1 cap PO DAILY 01/22/18 [ History] Insulin ASPART [Novolog Flexpen] 2 unit SQ TIDWM 01/22/18 [History] Insulin Glargine,Hum.rec.anlog [Toujeo Solostar] 15 units SQ HS 01/22/18 [ History] Multivitamin [One Daily Essential] 1 tab PO DAILY 01/22/18 [History] Omeprazole/Sodium Bicarbonate [Zegerid 20 mg Capsule] 1 cap PO Q48H PRN [History] Potassium Chloride [Klor-Con 10] 10 meq PO BID 01/22/18 [History] 3 Allergy/AdvReac Type Severity Reaction Status Date / Time tetanus toxoid, adsorbed Allergy Hives Verified 01/22/18 10:11 NSAIDS (Non-Steroidal AdvReac See Verified 01/22/18 10:38 Anti-Inflamma Comments - Meds/Allergy Pre-op Review Medications Reviewed: Yes Allergies Reviewed: Yes Beta Blockers on Current Med List: Yes (Carvedilol home med) If Beta Blockers taken, Date/Time (Last Dose taken): Metoprolol 01/23/2018 @ 204 Anesthesia Results - Labs 01/23/18 00:57 01/23/18 00:57 Laboratory Tests 10/20/17 01/21/18 01/21/18 08:29 13:55 18:04 WBC Hgb Hct Plt Count PT INR APTT 31.3 Creatinine Est GFR (Non-Af Amer) Glucose POC Glucose Est Mean Plasma Glucose 166 Hemoglobin A1c 7.4 H B-Natriuretic Peptide 253 H 01/22/18 01/22/18 01/23/18 00:41 20:15 00:57 WBC 14.7 H Hgb 13.0 Hct 40.2 Plt Count 153 PT 20.9 H INR 1.9 APTT Creatinine Est GFR (Non-Af Amer) Glucose POC Glucose 154 H Est Mean Plasma Glucose Hemoglobin A1c B-Natriuretic Peptide 01/23/18 00:57 WBC Hgb Hct Plt Count PT INR APTT Creatinine 1.34 H Est GFR (Non-Af Amer) 54 L Glucose 151 H POC Glucose Est Mean Plasma Glucose Hemoglobin A1c B-Natriuretic Peptide Impressions Chest X-Ray 01/21/18 17:34 IMPRESSION: No acute cardiopulmonary disease. Mild cardiomegaly without failure. D/ / Keegan Peña MD / Keegan Peña MD Interpreting Provider: Keegan Peña MD Echocardiogram 01/21/18 17:34 Impressions: LVEF 50%. Normal LV chamber size, wall thickness and function. Indeterminate diastolic function. Atypical septal motion consistent with paced rhythm. Normal right ventricular structure and function. No significant valvular dysfunction. No evidence of pulmonary hypertension. A device lead was visualized in the right atrium and right ventricle. Left Ventricular Wall Motion: Rest Echo Findings All wall segments showed normal motion. Findings: Study Quality * Technically adequate exam. ECG Findings * Paced rhythm. Left Ventricle * LVEF 50%. * Normal LV chamber size, wall thickness and function. * Indeterminate diastolic function. * Atypical septal motion consistent with paced rhythm. Right Ventricle * Normal right ventricular structure and function. Left Atrium * Moderately dilated left atrium. Right Atrium * Normal right atrial size. Aortic Valve * Aortic valve not well visualized. * Grossly calcified aortic valve leaflets. * No aortic regurgitation. * No aortic stenosis. Mitral Valve * Mild mitral annular calcification * Trace mitral regurgitation. * No mitral stenosis. Tricuspid Valve * Normal tricuspid valve structure and function. * Trace tricuspid regurgitation. * No evidence of pulmonary hypertension. Pulmonic Valve * Pulmonic valve is not well visualized. Aorta * Normally sized aortic root. Pericardium * The pericardium appears normal. IVC * Normal IVC dimensions and inspiratory collapse. Pulmonary Artery * Normal visualized portions of the main pulmonary artery. Device lead * A device lead was visualized in the right atrium and right ventricle. Hip CT 01/21/18 19:49 IMPRESSION: 1. Limited CT [facility] protocol for preoperative planning. 2. Re- demonstration of acute transcervical right femoral neck fracture. 3. Moderate osteoarthritis of the bilateral hips. D/ / Ian Rod MD / Ian Rod MD Interpreting Provider: Ian Rod MD Anesthesia Exam Vital Signs Temp Pulse Resp BP Pulse Ox 01/23/18 22:33 99.5 F 62 16 144/78 96 01/23/18 18:37 99.0 F 60 16 137/71 94 01/23/18 14:11 98.2 F 81 16 129/78 99 01/23/18 10:19 98.5 F 73 16 134/76 98 01/23/18 07:53 98 01/23/18 06:30 98.4 F 68 16 129/68 98 01/23/18 04:25 98.6 F 60 16 126/72 96 Intake and Output 01/23/18 01/23/18 01/23/18 07:59 15:59 23:59 Intake Total 500 / 500 Output Total 550 / 550 700 / 700 700 / 700 Balance -550 / -550 -200 / -200 -700 / -700 Intake: Oral 500 / 500 Output: Urine 550 / 550 700 / 700 700 / 700 Other: Meal Lunch Percent of Meal Consumed 60% Blood Glucose* 101 127 150 Anesthesia Assess/Plan ASA Score: 3 (AFib, HTN, CHF Anxiety/Depression, Stae 3 CKDz, DM) Modified Fernie Scale for Level of Consciousness: Cooperative, oriented, and tranquil Anesthetic Plan: General Monitoring Plan: Standard Monitors Recovery Plan: PACU
[2018-01-24 01:21] LABS: Hematocrit 37.4 % (37.5-50.1); Hemoglobin 12.2 g/dL (12.9-16.9); Mean Corpuscular HGB Conc 32.6 g/dL (31.6-35.5); Mean Corpuscular Hemoglobin 28.1 pg (28.0-33.3); Mean Corpuscular Volume 86.2 fL (83.0-100.0); Mean Platelet Volume 11.4 fL (9.4-12.4); Platelet Count 127 K/mcL (140-400); Red Blood Count 4.34 M/mcL (4.19-5.50)
[2018-01-24 01:42] LABS: BUN/Creatinine Ratio 21 (6-26); Blood Urea Nitrogen 29 mg/dL (8-23); Calcium 9.2 mg/dL (8.6-10.3); Carbon Dioxide 30 mEq/L (23-29); Chloride 95 mEq/L (98-107); Glucose 195 mg/dL (70-105); Osmolality,Calculated 289 (280-300); Potassium 3.5 mEq/L (3.5-5.1); Sodium 134 mEq/L (136-145); eGFR For African Americans > 60 (> 60); eGFR For Non-African Americans 51 (> 60)
[2018-01-24] MEDS: Acetaminophen 325 MG TABLET PO PRN (05:31)
--- NOTE | 2018-01-24 06:41 | Orthopedics Progress Note ---
Date of Encounter: 01/24/18 Time of Encounter: 06:40 Subjective Interval history: Patient seen this morning with right proximal femoral neck fracture displaced recommendation based on patient's age and activity level is right total hip replacement. We reviewed the risks and benefits as well as recovery. All questions were answered. The patient agreed to this treatment plan and appeared to understand the plan is reviewed. This will be robotic-assisted procedure Objective Vital signs: Vital Signs Temp Pulse Resp BP Pulse Ox 01/24/18 04:48 100.1 F H 64 14 138/69 94 01/23/18 22:33 99.5 F 62 16 144/78 96 01/23/18 18:37 99.0 F 60 16 137/71 94 01/23/18 14:11 98.2 F 81 16 129/78 99 01/23/18 10:19 98.5 F 73 16 134/76 98 01/23/18 07:53 98 Intake and Output 01/23/18 01/23/18 01/24/18 15:59 23:59 07:59 Intake Total 500 / 500 Output Total 700 / 700 700 / 700 550 / 550 Balance -200 / -200 -700 / -700 -550 / -550 Intake: Oral 500 / 500 Output: Urine 700 / 700 700 / 700 550 / 550 Other: Meal Lunch Percent of Meal Consumed 60% Blood Glucose* 127 150 - Labs CBC & BMP: 01/24/18 00:29 01/24/18 00:29 Labs: Abnormal lab results WBC 16.6 K/mcL (4.3-11.1) H 01/24/18 00:29 Hgb 12.2 g/dL (12.9-16.9) L 01/24/18 00:29 Hct 37.4 % (37.5-50.1) L 01/24/18 00:29 RDW 15.0 % (11.5-14.5) H 01/24/18 00:29 Plt Count 127 K/mcL (140-400) L 01/24/18 00:29 Neutrophils # 14.9 K/mcL (1.6-8.9) H 01/22/18 00:41 Monocytes # 2.0 K/mcL (0.0-1.3) H 01/22/18 00:41 PT 20.9 Seconds (9.4-12.1) H 01/22/18 00:41 Sodium 134 mEq/L (136-145) L 01/24/18 00:29 Chloride 95 mEq/L (98-107) L 01/24/18 00:29 Carbon Dioxide 30 mEq/L (23-29) H 01/24/18 00:29 BUN 29 mg/dL (8-23) H 01/24/18 00:29 Creatinine 1.41 mg/dL (0.70-1.30) H 01/24/18 00:29 Est GFR (Non-Af Amer) 51 (> 60) L 01/24/18 00:29 Glucose 195 mg/dL (70-105) H 01/24/18 00:29 POC Glucose 154 mg/dL (70-99) H 01/22/18 20:15 B-Natriuretic Peptide 253 pg/mL (Less than 100) H 01/21/18 18:04 Urine Clarity Cloudy (Clear) A 01/21/18 21:05 Ur Leukocyte Esterase Moderate (Negative) H 01/21/18 21:05 Urine Microscopic WBC 15-30 per hpf (0-3) H 01/21/18 21:05 Ur Squamous Epith Cells Moderate per lpf (None-Few) H 01/21/18 21:05 Urine Bacteria Many per hpf (None-Few) H 01/21/18 21:05 Ur Culture Indicated? YES (NO) A 01/21/18 21:05 - VTE Documentation of Mechanical Device: Intermittent pneumatic compression device
[2018-01-24 07:25] LABS: INR 1.6; Prothrombin Time 18.5 Seconds (9.4-12.1)
[2018-01-24] MEDS: Insulin LISPRO 300 UNITS/3 ML VIAL SQ SCH ×2 (08:21→11:43)
[2018-01-24] MEDS: Torsemide 20 MG TABLET PO SCH (08:21)
[2018-01-24] MEDS: *HR* OxyCODONE/APAP 5/325 TABLET PO PRN ×2 (08:23→18:39)
--- NOTE | 2018-01-24 08:29 | Event Note ---
Date of Encounter: 01/24/18 Time of Encounter: 08:28 Notified by nurse of HR 54 - requested they hold Lopressor dose and contact anesthesia for further recommendation regarding administration secondary to patient's history of Afib and surgery scheduled for today. NPO diet in place
[2018-01-24] MEDS: Metoprolol XL (24 HR) Succ 50 MG TAB.ER.24H PO SCH ×2 (08:37→20:59)
[2018-01-24] MEDS: OXYCODONE Oral CONC 10 MG/0.5 ML ORAL.SYG SL PRN (10:07)
--- NOTE | 2018-01-24 14:04 | Anesthesia Evaluation PreOp ---
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: Other (depression) Other Medical History: Diabetes Type II Alcohol Use: none Drug use: none Medications and Allergies Metoprolol XL (24 HR) Succ [Toprol XL] 50 mg PO BID 05/15/16 [History] Sertraline [Zoloft] 100 mg PO DAILY 05/15/16 [History] Torsemide [Demadex] 60 mg PO BID 05/15/16 [History] Cinnamon Bark [Cinnamon] 1,000 mg PO BID 10/23/17 [History] Melatonin 10 mg PO HS 10/23/17 [History] Rivaroxaban [Xarelto] 20 mg PO DAILY 10/23/17 [History] Tamsulosin [Flomax] 0.4 mg PO DAILY 10/23/17 [History] HYDROcodone/Acet 5/325 mg [[place] 5-325 mg] 1 tab PO Q6H 4 Days #14 tab 01/12/18 [Rx] Polyethylene Glycol 3350 [MiraLAX] 17 gm PO DAILY 01/21/18 [History] SitaGLIPtin [Januvia] 100 mg PO DAILY 01/21/18 [History] Aspirin [Adult Aspirin Regimen] 81 mg PO DAILY 01/22/18 [History] C/Sourcherry/Celery/Grape Seed [Tart Willard Capsule] 1 cap PO DAILY 01/22/18 [ History] Insulin ASPART [Novolog Flexpen] 2 unit SQ TIDWM 01/22/18 [History] Insulin Glargine,Hum.rec.anlog [Toujeo Solostar] 15 units SQ HS 01/22/18 [ History] Multivitamin [One Daily Essential] 1 tab PO DAILY 01/22/18 [History] Omeprazole/Sodium Bicarbonate [Zegerid 20 mg Capsule] 1 cap PO Q48H PRN [History] Potassium Chloride [Klor-Con 10] 10 meq PO BID 01/22/18 [History] 3 Allergy/AdvReac Type Severity Reaction Status Date / Time tetanus toxoid, adsorbed Allergy Hives Verified 01/22/18 10:11 NSAIDS (Non-Steroidal AdvReac See Verified 01/22/18 10:38 Anti-Inflamma Comments Anesthesia Results - Labs 01/24/18 00:29 01/24/18 00:29 Echo with Imaging Enhancement Agent Name: Joss Martinez Date of Study: 01/21/2018 History Hypertension Diabetes Years 30 Packs 1.5 Family History of CAD Congestive Heart Failure Pacer/ICD Implant EV/EV echocardiogram w enhance Impressions: LVEF 50%. Normal LV chamber size, wall thickness and function. Indeterminate diastolic function. Atypical septal motion consistent with paced rhythm. Normal right ventricular structure and function. No significant valvular dysfunction. No evidence of pulmonary hypertension. A device lead was visualized in the right atrium and right ventricle.
[2018-01-24] MEDS ORDERED: Ethanol\\Acetic Acid\\Na Ace\\Ben 1,000 ML IRRIG.SOLN IR ONE (14:13)
[2018-01-24] MEDS ORDERED: *HR* FentaNYL (PF) 100 MCG/2 ML VIAL ONE (14:13)
[2018-01-24] MEDS ORDERED: *HR* Midazolam HCl 2 MG/2 ML VIAL ONE (14:13)
[2018-01-24] MEDS ORDERED: *HR* Propofol 200 MG/20 ML VIAL IVP ONE (14:13)
[2018-01-24] MEDS ORDERED: Lidocaine -MPF 4% 5 ML AMPUL ONE (14:14)
[2018-01-24] MEDS ORDERED: ROPIVACAINE HCL/PF 0.5% 30 ML VIAL ONE (14:26)
[2018-01-24] MEDS ORDERED: CeFAZolin Syr 2,000MG/20 ML 2,000 MG/20 ML SYRINGE IVPB ONE (14:52)
[2018-01-24] MEDS ORDERED: Dexamethasone 4 MG/ML VIAL ONE (15:39)
[2018-01-24] MEDS ORDERED: Ondansetron 4 MG/2 ML VIAL ONE (15:39)
[2018-01-24] MEDS ORDERED: Ondansetron 4 MG/2 ML VIAL IVP ONE (15:46)
[2018-01-24] MEDS ORDERED: *HR* FentaNYL (PF) 100 MCG/2 ML VIAL IVP PRN (15:46)
[2018-01-24] MEDS ORDERED: *HR* OxyCODONE/APAP 5/325 TABLET PO PRN (15:46)
[2018-01-24] MEDS ORDERED: *HR* PHENYLEPHRINE 1,000 MCG/10 ML SYRINGE IVP ONE (16:09)
--- NOTE | 2018-01-24 16:25 | Orthopedic Operative Note ---
Date of procedure: 01/24/18 Pre-op diagnosis: Displaced right femoral neck fracture Post-op diagnosis: same Procedure: Procedure: Right Total Hip Replacment robotic-assisted Estimated blood loss: 500 cc Hardware: Metal and polyethylene replacement. Clarissa DM Cup: 54 cup Femoral size 9stem Head: 8 head with Anette 1 6.5 cancellus screw Procedural Notes: Patient with a displaced right femoral neck fracture Operative procedure: The patient was brought to the operating room and placed on the operating room table. After general anesthesia was administered the patient was placed in the lateral decubitus position with the operative leg up. All pressure points were padded appropriately and the head was stabilized in the neutral position. The operative extremity was prepped and draped in the sterile surgical fashion patient received IV antibiotic prior to skin incision. 3 Steinmann pins were placed in the iliac crest 3 cm proximal to the anterior superior iliac spine this was for the robotic-assisted sensor. This was done through a small 2 cm incision. A standard posterior approach is made to the operative hip, the incision was made through the skin and subcutaneous tissue hemostasis was obtained with Bovie cautery. Using careful sharp dissection the fascia was identified and incised exposing the external rotators. The femoral checkpoint was placed leg length was measured at this time utilizing robotic assistance. The external rotators were released off the greater trochanter and tagged with # 2 FiberWire suture. The capsule was T'd open and the hip was brought into internal rotation the patient had a displaced femoral neck fracture femoral neck cut was made at the appropriate level, the femoral head was then removed. The acetabulum was cleaned of soft tissue. The acetabulum checkpoint was placed confirmed. The acetabulum was then mapped with robotic assistance. Based on the preoperative plan the acetabulum was reamed in one step with a 53 reamer. The 54 acetabulum was impacted with robotic assistance and 40 degrees of abduction and 20 degrees of anteversion. Fixation was augmented with one 6.5 cancellus screw in the posterior superior quadrant. The hip was brought back in to internal rotation and prepared with the supervisor mattress and boxsprings followed by the canal finder followed by the reaming process to a size 9/ 10 broaching process in 20 degrees anteversion. It was broached up to the appropriate size 9. Trial reduction revealed leg lengths close to normal. The femoral implant was impacted in place in 20 degrees of anteversion. Trial reduction found the hip to be stable with 8 head and Anette. The trials were removed and the real implants were impacted in place. The hip was reduced, patient had robotic confirmed leg length of 8 mm longer than the contralateral side. The hip had excellent stability with forward flexion to 90 degrees adduction of 30 degrees and internal rotation of 60 degrees. The hip had no shuck. The hips after 2 minutes with a antibacterial solution. It was irrigated out with 2 L of pulse irrigation. The checkpoints were removed, Steinmann pins were removed. The hip was closed by the PA. The deep tissue was irrigated and closed deep with #1 PDS suture superficially with 0 PDS suture and skin was closed with Dermabond and zip tie. The patient was placed in a sterile dressing and abduction pillow. The patient was extubated and transferred to the recovery room in stable condition. Anesthesia: ARETHA Surgeon: Vladimir Louise Was there an billing assistant present: Yes Design Engineering Manager: Lizzy Mabry Estimated blood loss (cc): 500 Condition: stable Disposition: PACU
--- NOTE | 2018-01-24 17:28 | Internal Med Progress Note ---
Date of Encounter: 01/24/18 Time of Encounter: 14:15 - Assessment and plan (1) Femoral neck fracture Current Visit: Yes Status: Acute Assessment and plan: Appreciate ortho input. Plan for total hip replacement today. Qualifiers: Encounter type: subsequent encounter Fracture type: closed Laterality: right Qualified Code(s): S72.001D - Fracture of unspecified part of neck of right femur, subsequent encounter for closed fracture with routine healing (2) CHF (congestive heart failure) Current Visit: Yes Status: Chronic Assessment and plan: Currently on Torsemide. Symptoms resolved Qualifiers: Heart failure type: diastolic Heart failure chronicity: chronic Qualified Code(s): I50.32 - Chronic diastolic (congestive) heart failure (3) CKD (chronic kidney disease), stage III Current Visit: Yes Status: Chronic Assessment and plan: Stable. We will monitor. Avoid nephrotoxins. (4) Diabetes mellitus Current Visit: Yes Status: Chronic Assessment and plan: Currently on accuchecks and coverage. Qualifiers: Diabetes mellitus type: type 2 Diabetes mellitus nursing home insulin use: with nursing home use Diabetes mellitus complication status: with kidney complications Diabetes mellitus complication detail: with chronic kidney disease Chronic kidney disease stage: stage 3 (moderate) Qualified Code(s): E11.22 - Type 2 diabetes mellitus with diabetic chronic kidney disease; N18.3 - Chronic kidney disease, stage 3 (moderate); Z79.4 - long term care phlebotomist (current) use of insulin (5) Leukocytosis Current Visit: Yes Status: Acute Assessment and plan: WBC slowly improving. Following. Qualifiers: Leukocytosis type: leukemoid reaction Qualified Code(s): D72.823 - Leukemoid reaction (6) Gout Current Visit: Yes Status: Acute Assessment and plan: Patient has been receiving prednisone. No symptoms at this time. Prednisone held for OR and may need to be restarted post op. Qualifiers: Gout site: toe Gout etiology: unspecified cause Chronicity: unspecified Laterality: right Qualified Code(s): M10.9 - Gout, unspecified (7) Afib Current Visit: Yes Status: Chronic Assessment and plan: Patient is on Xarelto for anticoagulation which is held in anticipation for surgery. Continue rate controlling agents. Appreciate cardiology input. Qualifiers: Atrial fibrillation type: paroxysmal Qualified Code(s): I48.0 - Paroxysmal atrial fibrillation (8) DVT prophylaxis Current Visit: Yes Status: Acute - Time Spent With Patient Total time spent is greater than 50% in coordination of care (as documented) at patient's floor/unit and/or counseling patient: - Subjective Interval history: Mr Martinez is currently admitted with fracture R hip. He remains moderate to high risk due to potential for worsening clinical status. Mr Martinez is resting prior to going to surgery. No fever or chills. No CP or SOB. To have total hip replacement today. - Constitutional Vitals: Temp Pulse Resp BP Pulse Ox 98.9 F 61 16 111/102 96 01/24/18 11:18 01/24/18 14:40 01/24/18 14:40 01/24/18 14:40 01/24/18 14:40 General appearance: Present: A&O X 3 - Head Head exam: Present: atraumatic, normocephalic - Eye Eye exam: Present: conjuntiva pink - ENT ENT exam: Present: mucous membranes dry - Respiratory Respiratory exam: Present: CTAB. Absent: rhonchi, wheezes - Cardiovascular Cardiovascular exam: Present: RRR. Absent: tachycardia - GI/Abdominal GI/Abdominal exam: Present: soft. Absent: tenderness - Extremities Exam Extremities exam: Present: tenderness, warm - Neurological Exam Neurological exam: Present: alert, oriented X3 - Skin Skin exam: Present: dry, warm. Absent: rash Internal Medicine: Result - Labs CBC & Chem 7: 01/24/18 00:29 01/24/18 00:29 Labs: Short CBC 01/24/18 Range/Units 00:29 WBC 16.6 H (4.3-11.1) K/mcL Hgb 12.2 L (12.9-16.9) g/dL Hct 37.4 L (37.5-50.1) % Plt Count 127 L (140-400) K/mcL BMP 01/24/18 00:29 Sodium 134 L Potassium 3.5 Chloride 95 L Carbon Dioxide 30 H BUN 29 H Creatinine 1.41 H Glucose 195 H Calcium 9.2 - ABG Interpretation ABG results: PT/INR, D-dimer PT 18.5 Seconds (9.4-12.1) H 01/24/18 06:41 - VTE Documentation of Mechanical Device: Intermittent pneumatic compression device Consult Discharge Plan - Plan Referrals: NONE,PCP [Primary Care Provider] -
[2018-01-24 17:32] LABS: Hemoglobin 10.6 g/dL (12.9-16.9)
--- NOTE | 2018-01-24 17:46 | Electrocardiograph Report ---
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
[2018-01-24] MEDS ORDERED: Naloxone 0.4 MG/ML INJ IVP PRN (17:49)
[2018-01-24] MEDS ORDERED: OXYCODONE Oral CONC 10 MG/0.5 ML ORAL.SYG SL PRN (17:49)
[2018-01-24] MEDS ORDERED: Ondansetron 4 MG/2 ML VIAL IVP PRN (17:49)
[2018-01-24] MEDS ORDERED: MOM Conc 10 ML UD.LIQ PO PRN (17:49)
[2018-01-24] MEDS ORDERED: *HR* Dextrose 50 % in Water (Syg) 50 ML SYRINGE IVP PRN (17:49)
[2018-01-24] MEDS ORDERED: Temazepam 15 MG CAPSULE PO PRN (17:49)
[2018-01-24] MEDS ORDERED: Dextrose Gel 15 GM/37.5 ML TUBE PO PRN ×2 (17:49)
[2018-01-24] MEDS ORDERED: Sennosides 8.6 MG TABLET PO PRN (17:49)
[2018-01-24] MEDS ORDERED: D5% in Water 1,000 ML IVC PRN (17:49)
[2018-01-24] MEDS: Ascorbic Acid 500 MG TABLET PO SCH (18:18)
[2018-01-24] MEDS: Melatonin 3 MG TABLET PO SCH (20:59)
[2018-01-24] MEDS ORDERED: Insulin LISPRO 300 UNITS/3 ML VIAL SQ SCH (21:00)
[2018-01-24] MEDS: Insulin DETEMIR 100 UNIT/ML X5UNITS SQ SCH (21:04)
[2018-01-25] MEDS: Ringers Solution, Lactated 1,000 ML IVC SCH ×2 (00:15→21:36)
[2018-01-25 01:32] LABS: Hematocrit 25.9 % (37.5-50.1); Hemoglobin 8.7 g/dL (12.9-16.9); Mean Corpuscular HGB Conc 33.6 g/dL (31.6-35.5); Mean Corpuscular Hemoglobin 29.4 pg (28.0-33.3); Mean Corpuscular Volume 87.5 fL (83.0-100.0); Mean Platelet Volume 11.5 fL (9.4-12.4); Platelet Count 114 K/mcL (140-400); Red Blood Count 2.96 M/mcL (4.19-5.50); Red Cell Distribution Width 14.5 % (11.5-14.5)
[2018-01-25 01:57] LABS: BUN/Creatinine Ratio 25 (6-26); Blood Urea Nitrogen 34 mg/dL (8-23); Calcium 8.4 mg/dL (8.6-10.3); Carbon Dioxide 28 mEq/L (23-29); Chloride 98 mEq/L (98-107); Glucose 252 mg/dL (70-105); Osmolality,Calculated 296 (280-300); Potassium 3.9 mEq/L (3.5-5.1); Sodium 135 mEq/L (136-145); eGFR For African Americans > 60 (> 60); eGFR For Non-African Americans 53 (> 60)
[2018-01-25] MEDS: *HR* Rivaroxaban 10 MG TABLET PO SCH (06:43)
[2018-01-25] MEDS: *HR* OxyCODONE/APAP 5/325 TABLET PO PRN (06:45)
--- NOTE | 2018-01-25 06:48 | Orthopedics Progress Note ---
Date of Encounter: 01/25/18 Time of Encounter: 06:48 Subjective Interval history: Patient was seen this morning doing well without complaints. Afebrile vital signs stable. Operative extremity: Neurovascularly intact Dressing clean dry and intact Calves nontender Assessment and plan: Continue with postoperative care Hematocrit 25, transfuse 2 units Objective Vital signs: Vital Signs Temp Pulse Resp BP Pulse Ox 01/25/18 04:50 97.9 F 85 14 107/69 93 01/24/18 23:14 99.1 F 60 14 112/53 97 01/24/18 21:55 98.4 F 60 16 120/62 100 01/24/18 20:50 98.1 F 61 14 119/70 100 01/24/18 19:55 98.4 F 60 14 115/69 100 01/24/18 18:58 97.8 F 60 12 113/71 100 01/24/18 18:27 99.2 F 60 15 110/54 100 01/24/18 17:55 98.6 F 60 15 120/71 97 01/24/18 17:38 99.0 F 59 16 113/55 96 01/24/18 17:28 98.5 F 59 16 118/57 95 01/24/18 17:18 59 16 115/55 95 01/24/18 17:08 59 16 109/88 95 01/24/18 16:58 101.1 F H 61 16 122/61 100 01/24/18 14:40 61 16 111/102 96 01/24/18 11:18 98.9 F 61 18 110/63 93 01/24/18 07:20 99.9 F H 60 16 122/63 93 Intake and Output 01/24/18 01/24/18 01/25/18 15:59 23:59 07:59 Intake Total 400 / 400 Output Total 100 / 100 900 / 900 600 / 600 Balance -100 / -100 -900 / -900 -200 / -200 Intake: Oral 400 / 400 Output: Urine 100 / 100 400 / 400 600 / 600 Estimated Blood Loss 500 / 500 Other: Weight 113.398 kg Blood Glucose* 140 169 - Labs CBC & BMP: 01/25/18 00:50 01/25/18 00:50 Labs: Abnormal lab results WBC 21.1 K/mcL (4.3-11.1) H 01/25/18 00:50 RBC 2.96 M/mcL (4.19-5.50) L 01/25/18 00:50 Hgb 8.7 g/dL (12.9-16.9) L D 01/25/18 00:50 Hct 25.9 % (37.5-50.1) L 01/25/18 00:50 Plt Count 114 K/mcL (140-400) L 01/25/18 00:50 Neutrophils # 14.9 K/mcL (1.6-8.9) H 01/22/18 00:41 Monocytes # 2.0 K/mcL (0.0-1.3) H 01/22/18 00:41 PT 18.5 Seconds (9.4-12.1) H 01/24/18 06:41 Sodium 135 mEq/L (136-145) L 01/25/18 00:50 BUN 34 mg/dL (8-23) H 01/25/18 00:50 Creatinine 1.37 mg/dL (0.70-1.30) H 01/25/18 00:50 Est GFR (Non-Af Amer) 53 (> 60) L 01/25/18 00:50 Glucose 252 mg/dL (70-105) H 01/25/18 00:50 POC Glucose 140 mg/dL (70-99) H 01/24/18 11:35 Calcium 8.4 mg/dL (8.6-10.3) L 01/25/18 00:50 B-Natriuretic Peptide 253 pg/mL (Less than 100) H 01/21/18 18:04 Urine Clarity Cloudy (Clear) A 01/21/18 21:05 Ur Leukocyte Esterase Moderate (Negative) H 01/21/18 21:05 Urine Microscopic WBC 15-30 per hpf (0-3) H 01/21/18 21:05 Ur Squamous Epith Cells Moderate per lpf (None-Few) H 01/21/18 21:05 Urine Bacteria Many per hpf (None-Few) H 01/21/18 21:05 Ur Culture Indicated? YES (NO) A 01/21/18 21:05 - VTE Documentation of Mechanical Device: Intermittent pneumatic compression device Consult Discharge Plan - Plan Referrals: NONE,PCP [Primary Care Provider] -
[2018-01-25] MEDS ORDERED: Furosemide 20 MG/2 ML VIAL IVP PRN (06:54)
[2018-01-25] MEDS ORDERED: D5% in Water 1,000 ML IVC PRN (09:45)
[2018-01-25] MEDS ORDERED: *HR* Dextrose 50 % in Water (Syg) 50 ML SYRINGE IVP PRN (09:45)
[2018-01-25] MEDS ORDERED: Dextrose Gel 15 GM/37.5 ML TUBE PO PRN ×2 (09:45)
[2018-01-25] MEDS ORDERED: 0.9 % Sodium Chloride 250 ML ONE ×2 (10:22→15:44)
[2018-01-25] MEDS: Insulin LISPRO 300 UNITS/3 ML VIAL SQ SCH ×4 (10:28→21:30)
[2018-01-25] MEDS: Multivit/Ca/Min/Fe/FA 1 TAB TABLET PO SCH (10:29)
[2018-01-25] MEDS: Torsemide 20 MG TABLET PO SCH ×2 (10:30→18:10)
[2018-01-25] MEDS: Ascorbic Acid 500 MG TABLET PO SCH ×2 (10:30→18:02)
[2018-01-25] MEDS: Metoprolol XL (24 HR) Succ 50 MG TAB.ER.24H PO SCH ×2 (10:31→19:10)
[2018-01-25] MEDS ORDERED: Insulin LISPRO 300 UNITS/3 ML VIAL SQ SCH (12:00)
--- NOTE | 2018-01-25 13:51 | Internal Med Progress Note ---
<Stevan Griffin S - Last Filed: 01/25/18 13:48> Date of Encounter: 01/25/18 Time of Encounter: 13:48 - Assessment and plan (1) Femoral neck fracture Current Visit: Yes Status: Acute Qualifiers: Encounter type: subsequent encounter Fracture type: closed Laterality: right Qualified Code(s): S72.001D - Fracture of unspecified part of neck of right femur, subsequent encounter for closed fracture with routine healing (2) CHF (congestive heart failure) Current Visit: Yes Status: Chronic Qualifiers: Heart failure type: diastolic Heart failure chronicity: chronic Qualified Code(s): I50.32 - Chronic diastolic (congestive) heart failure (3) CKD (chronic kidney disease), stage III Current Visit: Yes Status: Chronic (4) Diabetes mellitus Current Visit: Yes Status: Chronic Assessment and plan: Increase insulin Lispro from low to medium dose q6hr. Poorly controlled blood glucose. 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 Recheck CBC in AM. WBC noted to be 21.1, up from 16.6 yesterday. Qualifiers: Leukocytosis type: leukemoid reaction Qualified Code(s): D72.823 - Leukemoid reaction (6) Gout Current Visit: Yes Status: Acute Qualifiers: Gout site: toe Gout etiology: unspecified cause Chronicity: unspecified Laterality: right Qualified Code(s): M10.9 - Gout, unspecified (7) DVT prophylaxis Current Visit: Yes Status: Acute (8) Afib Current Visit: Yes Status: Chronic Qualifiers: Atrial fibrillation type: paroxysmal Qualified Code(s): I48.0 - Paroxysmal atrial fibrillation (9) Acute blood loss as cause of postoperative anemia Current Visit: Yes Status: Acute Assessment and plan: Hemoglobin noted to be 8.7 today, down from 10.6 yesterday. Will recheck CBC in the morning. Pt had type and cross with 2U of RBC held. - Time Spent With Patient Total time spent is greater than 50% in coordination of care (as documented) at patient's floor/unit and/or counseling patient: less than 15 minutes - Subjective Interval history: 62yo male is seen at bedside. He is here for right femur fx. He is POD#1 s/p total hip arthroplasty. He states that he has 6/10 nonradiating pain that feels like "muscle spasms." The pain comes and goes, meds make it better. He hasn't ambulated, PT/OT coming back later. He is eating some jello, no bowel movements today. He denies fever/chills/chest pain, SOB, n/v/d, numbness or tingling. - Constitutional Vitals: Temp Pulse Resp BP Pulse Ox 98.6 F 60 16 99/57 97 01/25/18 13:20 01/25/18 13:20 01/25/18 13:20 01/25/18 13:20 01/25/18 13:20 General appearance: Present: cooperative, A&O X 3 - Head Head exam: Present: atraumatic, normal inspection - ENT ENT exam: Present: mucous membranes moist - Respiratory Respiratory exam: Present: CTAB - Cardiovascular Cardiovascular exam: Present: RRR - GI/Abdominal GI/Abdominal exam: Present: hypoactive bowel sounds, soft, no peritoneal signs - Extremities Exam Extremities exam: Present: normal inspection - Incison Incision: Present: clean and dry - Neurological Exam Neurological exam: Present: oriented X3, no focal deficits - Skin Skin exam: Present: normal color Internal Medicine: Result - Labs CBC & Chem 7: 01/25/18 00:50 01/25/18 00:50 Labs: Short CBC 01/24/18 01/25/18 Range/Units 17:15 00:50 WBC 21.1 H (4.3-11.1) K/mcL Hgb 10.6 L D 8.7 L D (12.9-16.9) g/dL Hct 32.0 L 25.9 L (37.5-50.1) % Plt Count 114 L (140-400) K/mcL BMP 01/25/18 00:50 Sodium 135 L Potassium 3.9 Chloride 98 Carbon Dioxide 28 BUN 34 H Creatinine 1.37 H Glucose 252 H Calcium 8.4 L - ABG Interpretation ABG results: PT/INR, D-dimer PT 18.5 Seconds (9.4-12.1) H 01/24/18 06:41 - Impressions Impressions Hip X-Ray 01/24/18 14:54 IMPRESSION: Status post successful right total hip replacement. D/ : / 01/24/2018 19:10:15 Kane Nicole MD / [email or web address] Interpreting Provider: Kane Nicole MD - VTE Documentation of Mechanical Device: Venous foot pump, device Consult Discharge Plan - Plan Referrals: NONE,PCP [Primary Care Provider] - <Isidra Paul - Last Filed: 01/25/18 23:14> Date of Encounter: 01/25/18 - Assessment and plan (1) Femoral neck fracture Current Visit: Yes Status: Acute Qualifiers: Encounter type: subsequent encounter Fracture type: closed Laterality: right Qualified Code(s): S72.001D - Fracture of unspecified part of neck of right femur, subsequent encounter for closed fracture with routine healing (2) CHF (congestive heart failure) Current Visit: Yes Status: Chronic Qualifiers: Heart failure type: diastolic Heart failure chronicity: chronic Qualified Code(s): I50.32 - Chronic diastolic (congestive) heart failure (3) CKD (chronic kidney disease), stage III Current Visit: Yes Status: Chronic (4) Diabetes mellitus Current Visit: Yes Status: Chronic Qualifiers: Diabetes mellitus type: type 2 Diabetes mellitus nursing home insulin use: with nursing home use Diabetes mellitus complication status: with kidney complications Diabetes mellitus complication detail: with chronic kidney disease Chronic kidney disease stage: stage 3 (moderate) Qualified Code(s): E11.22 - Type 2 diabetes mellitus with diabetic chronic kidney disease; N18.3 - Chronic kidney disease, stage 3 (moderate); Z79.4 - shelter (current) use of insulin (5) Leukocytosis Current Visit: Yes Status: Acute Qualifiers: Leukocytosis type: leukemoid reaction Qualified Code(s): D72.823 - Leukemoid reaction (6) Gout Current Visit: Yes Status: Acute Qualifiers: Gout site: toe Gout etiology: unspecified cause Chronicity: unspecified Laterality: right Qualified Code(s): M10.9 - Gout, unspecified (7) DVT prophylaxis Current Visit: Yes Status: Acute (8) Afib Current Visit: Yes Status: Chronic Qualifiers: Atrial fibrillation type: paroxysmal Qualified Code(s): I48.0 - Paroxysmal atrial fibrillation (9) Acute blood loss as cause of postoperative anemia Current Visit: Yes Status: Acute - Time Spent With Patient Total time spent is greater than 50% in coordination of care (as documented) at patient's floor/unit and/or counseling patient: - Constitutional Vitals: Temp Pulse Resp BP Pulse Ox 98.8 F 62 14 88/45 97 01/25/18 22:52 01/25/18 22:52 01/25/18 22:52 01/25/18 22:52 01/25/18 22:52 Internal Medicine: Result - Labs CBC & Chem 7: 01/25/18 21:57 01/25/18 00:50 Labs: Short CBC 01/25/18 01/25/18 Range/Units 00:50 21:57 WBC 21.1 H (4.3-11.1) K/mcL Hgb 8.7 L D 9.5 L (12.9-16.9) g/dL Hct 25.9 L 27.7 L (37.5-50.1) % Plt Count 114 L (140-400) K/mcL BMP 01/25/18 00:50 Sodium 135 L Potassium 3.9 Chloride 98 Carbon Dioxide 28 BUN 34 H Creatinine 1.37 H Glucose 252 H Calcium 8.4 L Liver Function 01/25/18 Range/Units 14:57 Total Bilirubin 3.1 H (0.3-1.0) mg/dL Direct Bilirubin 1.7 H (0.0-0.2) mg/dL AST 15 (13-39) Units/L ALT 8 (7-52) Units/L Alkaline Phosphatase 99 (34-104) Units/L Albumin 3.0 L (3.5-5.7) g/dL - ABG Interpretation ABG results: PT/INR, D-dimer PT 18.5 Seconds (9.4-12.1) H 01/24/18 06:41 - Impressions Impressions Chest X-Ray 01/25/18 18:15 IMPRESSION: Clear lungs. D/ / Saeid Hayes MD / Saeid Hayes MD Interpreting Provider: Saeid Hayes MD - Attending Attestation I examined this patient and my medical decision-making was reviewed with the Resident Physician. I agree with the documented findings, disposition and treatment plan as described except to the extent set forth below. Patient being transfused today 2 units, finished 1 unit. Patient appeared jaundiced, in no acute distress, CVS: RRR, lungs: CTAB, ext: bipedal edema. Patient appears weak but he is post op. Continue trend H&H and transfuse as needed. Hypotensive and will need to transfer to 2nd floor for closer hemodynamic monitoring. LFTs and INR for jaundice appearance. Post op management per Ortho.
[2018-01-25] MEDS: Acetaminophen 325 MG TABLET PO PRN (15:22)
[2018-01-25 15:33] LABS: Albumin/Globulin Ratio 1.3 (1.1-2.2); Bilirubin,Direct 1.7 mg/dL (0.0-0.2); Bilirubin,Indirect 1.4 mg/dL (0.0-1.2); Bilirubin,Total 3.1 mg/dL (0.3-1.0); Globulin 2.4 g/dL (2.4-3.5); Total Protein 5.4 g/dL (6.4-8.9)
--- NOTE | 2018-01-25 17:11 | Event Note ---
Date of Encounter: 01/25/18 Time of Encounter: 17:10 PCR- POD#1 status post right total hip robotic 01/24 Dr. Louise PCR - Patient seen at bedside. Spouse and relative at bedside. Patient finishing eating dinner. Alert and oriented 3 Labwork and medications reviewed. 01/25: Hemoglobin 8.7 - patient receiving 2 units PRBCs Vital signs reviewed - persistently low blood pressure despite receiving 1 units PRBCs and 2nd unit transfusing during visit. Hospitalist aware. Pain control: Adequate Participating in PT. All questions and concerns addressed. Educated on use of incentive spirometer, ambulation, and hydration. Patient educated on post-operative restrictions and care. Addressed: see above. D/C plan: Per hospitalist. Likely ECF once medically stable and auth obtained.
[2018-01-25] MEDS ORDERED: 0.9 % Sodium Chloride 500 ML IVC ONE ×2 (18:09→22:53)
--- NOTE | 2018-01-25 18:25 | Event Note ---
Date of Encounter: 01/25/18 Time of Encounter: 18:23 Pt states he says he was yellow before blood transfusion. Nurse states that when she was taking care of pt she noticed he was potentially jaundiced.
[2018-01-25] MEDS: Melatonin 3 MG TABLET PO SCH (20:54)
[2018-01-25] MEDS: Insulin DETEMIR 100 UNIT/ML X5UNITS SQ SCH (21:36)
[2018-01-25 22:10] LABS: Hematocrit 27.7 % (37.5-50.1); Hemoglobin 9.5 g/dL (12.9-16.9)
--- NOTE | 2018-01-25 23:05 | Event Note ---
Date of Encounter: 01/25/18 Time of Encounter: 21:14 Alerted by pts. nurse KRISTINE Levine that pts. SBP was previously in the 80s and was now mid-90s. Concern was d/t previous conversation regarding transferring pt. from 3NE to 2NE. Pt. stated to nurse that he did not want to be transferred. Went to see pt. who was resting comfortably in bed. Discussed w/ Mr. Martinez my concern regarding his hypotension as well as his Hgb of 8.7 today (down from 13.0 on 01/23). Pt. stated that he did not want to be moved to 2NE. He felt that he was receiving the best care he'd ever received on 3NE. He also reported that he was feeling better than he had and was not having any SOB or sx of any kind. Timed H/H were ordered which showed improvement to 9.5. Timed VS were changed from Q4HR to Q2HR. Pts. next BP check was 88/45 via automatic check. Nurse was instructed to change to manual BP checks until SBP > 100. BP checked manually was 82/38. 500 mL 0.9 fluid bolus ordered. Mr. Martinez continues to be asymptomatic and state that he is feeling fine. Pt. has hx of CHF as well so we will monitor for signs of fluid overload. BNP ordered which is 146. Pt. to be monitored closely overnight.
[2018-01-25] MEDS: Piperacillin/Tazobactam 3.375 GM in 0.9 % Sodium Chloride Mini Bag 100 ML IVPB SCH (23:49)
[2018-01-26 01:16] LABS: Basophils % 0.1 %; Mean Platelet Volume 11.9 fL (9.4-12.4)
[2018-01-26 01:18] LABS: Hematocrit 26.7 % (37.5-50.1); Hemoglobin 9.3 g/dL (12.9-16.9); Immature Granulocytes % 1.2 % (0-4); Lymphocytes % 3.6 %; Mean Corpuscular HGB Conc 34.8 g/dL (31.6-35.5); Mean Corpuscular Volume 86.1 fL (83.0-100.0); Monocytes # 2.3 K/mcL (0.0-1.3); Monocytes % 8.3 %; Neutrophils # 23.7 K/mcL (1.6-8.9); Platelet Count 167 K/mcL (140-400); Red Cell Distribution Width 14.5 % (11.5-14.5); Segmented Neutrophils % 86.8 %
[2018-01-26 01:30] LABS: Potassium 4.1 mEq/L (3.5-5.1)
[2018-01-26 03:02] LABS: Platelet Estimate Normal (Normal); Toxic Granulation Present (Not Present)
[2018-01-26] MEDS: *HR* Rivaroxaban 10 MG TABLET PO SCH (05:26)
[2018-01-26] MEDS ORDERED: 0.9 % Sodium Chloride 500 ML IVC ONE (06:53)
--- NOTE | 2018-01-26 07:43 | Internal Med Progress Note ---
Addendum entered and electronically signed by Stevan Griffin 01/26/18 09:44: Add PING for assessment and plan. BUN 56, up from 34. Creatinine 1.82, up from 1.37. Will recheck kidney fxn in the AM. Continue fluids. Original Note: <EliasStevan Richard - Last Filed: 01/26/18 07:39> Date of Encounter: 01/26/18 Time of Encounter: 07:40 - Assessment and plan (1) Acute blood loss as cause of postoperative anemia Current Visit: Yes Status: Acute Assessment and plan: Pt given 2U blood. Will watch hemoglobin (2) Femoral neck fracture Current Visit: Yes Status: Acute Assessment and plan: POD#2 s/p JOSE. Pt tolerated procedure well Qualifiers: Encounter type: subsequent encounter Fracture type: closed Laterality: right Qualified Code(s): S72.001D - Fracture of unspecified part of neck of right femur, subsequent encounter for closed fracture with routine healing (3) CHF (congestive heart failure) Current Visit: Yes Status: Chronic Assessment and plan: Currently on Torsemide. 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 (5) Diabetes mellitus Current Visit: Yes Status: Chronic Assessment and plan: Increase insulin Lispro from low to medium dose q6hr. Poorly controlled blood glucose. 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 use Diabetes mellitus complication status: with kidney complications Diabetes mellitus complication detail: with chronic kidney disease Chronic kidney disease stage: stage 3 (moderate) Qualified Code(s): E11.22 - Type 2 diabetes mellitus with diabetic chronic kidney disease; N18.3 - Chronic kidney disease, stage 3 (moderate); Z79.4 - retirement (current) use of insulin (6) Leukocytosis Current Visit: Yes Status: Acute Assessment and plan: Montior CBC Qualifiers: Leukocytosis type: leukemoid reaction Qualified Code(s): D72.823 - Leukemoid reaction (7) Gout Current Visit: Yes Status: Acute Assessment and plan: Patient has been receiving prednisone. No symptoms at this time. Qualifiers: Gout site: toe Gout etiology: unspecified cause Chronicity: unspecified Laterality: right Qualified Code(s): M10.9 - Gout, unspecified (8) DVT prophylaxis Current Visit: Yes Status: Acute Assessment and plan: Pt has compression device for legs (9) Afib Current Visit: Yes Status: Chronic Assessment and plan: Patient is on Xarelto. Qualifiers: Atrial fibrillation type: paroxysmal Qualified Code(s): I48.0 - Paroxysmal atrial fibrillation (10) Sepsis Current Visit: Yes Status: Acute Assessment and plan: Suspected sepsis. Pt is started on PipTazo yesterday and Vacomycin today. He is given a NS bolus. Will see what bolus does. May transfer to ICU and have central line put in depending on what BP does Qualifiers: Sepsis type: sepsis due to unspecified organism Qualified Code(s): A41.9 - Sepsis, unspecified organism - Time Spent With Patient Total time spent is greater than 50% in coordination of care (as documented) at patient's floor/unit and/or counseling patient: - Subjective Interval history: 62yo male is seen at bedside. He is here for right femur fx. He is POD#2 s/p total hip arthroplasty. He states that he has 6/10 nonradiating pain but that it has gotten up to 10/10 and muscle spasms. He denies having any fever/chills/ CP/SOB/N,V,D. Pt still hasnt had a bowel movement, he is urinating well. Tolerating diet. Pt states that when PTOT tried to get him up he got slightly dizzy but that he denies any syncope/presyncope, visual changes He states his BP usually runs low.. - Constitutional Vitals: Temp Pulse Resp BP Pulse Ox 98.2 F 70 14 85/48 98 01/26/18 06:04 01/26/18 06:04 01/26/18 06:04 01/26/18 06:04 01/26/18 06:04 General appearance: Present: cooperative, A&O X 3, obese - Head Head exam: Present: atraumatic, normal inspection - Neck Neck exam general surgery: Present: supple - Respiratory Respiratory exam: Present: CTAB - Cardiovascular Cardiovascular exam: Present: RRR, +S1, +S2 - GI/Abdominal GI/Abdominal exam: Present: normal bowel sounds, soft, no peritoneal signs - Extremities Exam Extremities exam: Present: normal capillary refill, normal inspection, warm - Incison Incision: Present: intact - Back Exam Back exam: Present: normal inspection - Neurological Exam Neurological exam: Present: oriented X3, no focal deficits - Skin Skin exam: Present: intact, normal color Additional comments: Inspected feet for any ulcers or broken skin. There are none. Internal Medicine: Result - Labs CBC & Chem 7: 01/26/18 00:21 01/26/18 00:21 Labs: Short CBC 01/25/18 01/26/18 Range/Units 21:57 00:21 WBC 27.3 H (4.3-11.1) K/mcL Hgb 9.5 L 9.3 L (12.9-16.9) g/dL Hct 27.7 L 26.7 L (37.5-50.1) % Plt Count 167 (140-400) K/mcL Neutrophils # 23.7 H (1.6-8.9) K/mcL BMP 01/26/18 00:21 Sodium 129 L Potassium 4.1 Chloride 93 L Carbon Dioxide 27 BUN 56 H Creatinine 1.82 H Glucose 165 H Calcium 8.0 L Liver Function 01/25/18 Range/Units 14:57 Total Bilirubin 3.1 H (0.3-1.0) mg/dL Direct Bilirubin 1.7 H (0.0-0.2) mg/dL AST 15 (13-39) Units/L ALT 8 (7-52) Units/L Alkaline Phosphatase 99 (34-104) Units/L Albumin 3.0 L (3.5-5.7) g/dL - ABG Interpretation ABG results: PT/INR, D-dimer PT 18.5 Seconds (9.4-12.1) H 01/24/18 06:41 - Impressions Impressions Chest X-Ray 01/25/18 18:15 IMPRESSION: Clear lungs. D/ / Saeid Hayes MD / Saeid Hayes MD Interpreting Provider: Saeid Hayes MD - VTE Documentation of Mechanical Device: Venous foot pump, device Consult Discharge Plan - Plan Referrals: NONE,PCP [Primary Care Provider] - <Isidra Paul - Last Filed: 01/26/18 18:59> Date of Encounter: 01/26/18 - Assessment and plan (1) Femoral neck fracture Current Visit: Yes Status: Acute Qualifiers: Encounter type: subsequent encounter Fracture type: closed Laterality: right Qualified Code(s): S72.001D - Fracture of unspecified part of neck of right femur, subsequent encounter for closed fracture with routine healing (2) CHF (congestive heart failure) Current Visit: Yes Status: Chronic Qualifiers: Heart failure type: diastolic Heart failure chronicity: chronic Qualified Code(s): I50.32 - Chronic diastolic (congestive) heart failure (3) CKD (chronic kidney disease), stage III Current Visit: Yes Status: Chronic (4) Diabetes mellitus Current Visit: Yes Status: Chronic Qualifiers: Diabetes mellitus type: type 2 Diabetes mellitus care home insulin use: with care home use Diabetes mellitus complication status: with kidney complications Diabetes mellitus complication detail: with chronic kidney disease Chronic kidney disease stage: stage 3 (moderate) Qualified Code(s): E11.22 - Type 2 diabetes mellitus with diabetic chronic kidney disease; N18.3 - Chronic kidney disease, stage 3 (moderate); 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 (5) Leukocytosis Current Visit: Yes Status: Acute Qualifiers: Leukocytosis type: leukemoid reaction Qualified Code(s): D72.823 - Leukemoid reaction (6) Gout Current Visit: Yes Status: Acute Qualifiers: Gout site: toe Gout etiology: unspecified cause Chronicity: unspecified Laterality: right Qualified Code(s): M10.9 - Gout, unspecified (7) DVT prophylaxis Current Visit: Yes Status: Acute (8) Afib Current Visit: Yes Status: Chronic Qualifiers: Atrial fibrillation type: paroxysmal Qualified Code(s): I48.0 - Paroxysmal atrial fibrillation (9) Acute blood loss as cause of postoperative anemia Current Visit: Yes Status: Acute (10) Sepsis Current Visit: Yes Status: Acute Qualifiers: Sepsis type: sepsis due to unspecified organism Qualified Code(s): A41.9 - Sepsis, unspecified organism - Time Spent With Patient Total time spent is greater than 50% in coordination of care (as documented) at patient's floor/unit and/or counseling patient: - Constitutional Vitals: Temp Pulse Resp BP Pulse Ox 97.7 F 84 17 109/63 93 01/26/18 15:22 01/26/18 15:22 01/26/18 15:22 01/26/18 15:22 01/26/18 15:22 Internal Medicine: Result - Labs CBC & Chem 7: 01/26/18 16:06 01/26/18 00:21 Labs: Short CBC 01/25/18 01/26/18 01/26/18 Range/Units 21:57 00:21 09:54 WBC 27.3 H 25.6 H (4.3-11.1) K/mcL Hgb 9.5 L 9.3 L 8.9 L (12.9-16.9) g/dL Hct 27.7 L 26.7 L 26.1 L (37.5-50.1) % Plt Count 167 188 (140-400) K/mcL Neutrophils # 23.7 H 22.3 H (1.6-8.9) K/mcL 01/26/18 01/26/18 Range/Units 14:56 16:06 WBC (4.3-11.1) K/mcL Hgb 9.1 L 9.1 L (12.9-16.9) g/dL Hct 26.4 L 26.5 L (37.5-50.1) % Plt Count (140-400) K/mcL Neutrophils # (1.6-8.9) K/mcL BMP 01/26/18 00:21 Sodium 129 L Potassium 4.1 Chloride 93 L Carbon Dioxide 27 BUN 56 H Creatinine 1.82 H Glucose 165 H Calcium 8.0 L Liver Function 01/26/18 Range/Units 08:27 Total Bilirubin 1.6 H (0.3-1.0) mg/dL Direct Bilirubin 0.9 H (0.0-0.2) mg/dL AST 17 (13-39) Units/L ALT 5 L (7-52) Units/L Alkaline Phosphatase 102 (34-104) Units/L Albumin 3.2 L (3.5-5.7) g/dL - ABG Interpretation ABG results: PT/INR, D-dimer PT 18.5 Seconds (9.4-12.1) H 01/24/18 06:41 - Impressions Impressions Chest X-Ray 01/25/18 18:15 IMPRESSION: Clear lungs. D/ / Saeid Hayes MD / Saeid Hayes MD Interpreting Provider: Saeid Hayes MD - Attending Attestation I examined this patient and my medical decision-making was reviewed with the Resident Physician. I agree with the documented findings, disposition and treatment plan as described except to the extent set forth below.
[2018-01-26] MEDS ORDERED: Furosemide 20 MG/2 ML VIAL IVP PRN ×2 (08:34→08:38)
[2018-01-26] MEDS ORDERED: 0.9 % Sodium Chloride 250 ML IVC SCH (08:45)
[2018-01-26 09:00] LABS: Albumin 3.2 g/dL (3.5-5.7); Albumin/Globulin Ratio 1.2 (1.1-2.2); Bilirubin,Direct 0.9 mg/dL (0.0-0.2); Bilirubin,Indirect 0.7 mg/dL (0.0-1.2); Bilirubin,Total 1.6 mg/dL (0.3-1.0); Globulin 2.7 g/dL (2.4-3.5); Total Protein 5.9 g/dL (6.4-8.9)
[2018-01-26] MEDS: Insulin LISPRO 300 UNITS/3 ML VIAL SQ SCH ×4 (09:04→21:24)
[2018-01-26] MEDS: Multivit/Ca/Min/Fe/FA 1 TAB TABLET PO SCH (09:04)
[2018-01-26] MEDS: Ascorbic Acid 500 MG TABLET PO SCH ×2 (09:04→17:31)
[2018-01-26] MEDS: Metoprolol XL (24 HR) Succ 50 MG TAB.ER.24H PO SCH (09:04)
[2018-01-26] MEDS: Piperacillin/Tazobactam 3.375 GM in 0.9 % Sodium Chloride Mini Bag 100 ML IVPB SCH ×3 (09:05→23:44)
[2018-01-26 10:05] LABS: Basophils % 0.1 %; Segmented Neutrophils % 87.2 %
[2018-01-26 10:06] LABS: Hematocrit 26.1 % (37.5-50.1); Hemoglobin 8.9 g/dL (12.9-16.9); Immature Granulocytes % 1.5 % (0-4); Lymphocytes # 0.9 K/mcL (0.6-4.6); Lymphocytes % 3.5 %; Mean Corpuscular HGB Conc 34.1 g/dL (31.6-35.5); Mean Corpuscular Hemoglobin 29.1 pg (28.0-33.3); Mean Corpuscular Volume 85.3 fL (83.0-100.0); Mean Platelet Volume 11.4 fL (9.4-12.4); Monocytes % 7.7 %; Neutrophils # 22.3 K/mcL (1.6-8.9); Platelet Count 188 K/mcL (140-400); Red Blood Count 3.06 M/mcL (4.19-5.50); Red Cell Distribution Width 14.8 % (11.5-14.5)
[2018-01-26 10:36] LABS: Platelet Estimate Normal (Normal)
--- NOTE | 2018-01-26 10:38 | Pulmonology Consult Note ---
Date of Encounter: 01/26/18 Time of Encounter: 10:29 Assessment and Plan (1) Hypotension Current Visit: Yes Status: Acute I suspect this is multifactorial including postoperative inflammatory response with capillary leak complicated by likely sepsis and mild anemia. There is no evidence of shock physiology year patient's lactate is normal he is mentating appropriately urine output remains stable. There is a slight transient elevation in his underlying creatinine with a history of known chronic kidney disease is that we monitored carefully. -I given the patient 5% albumin challenge now -Stop maintenance infusion of crystalloid as this is unlikely to increased volume expansion or resolve hypotension. This will contribute mostly to hydrostatic pulmonary edema secondary to third spacing of fluids -No indication for vasopressor present. He will need continued telemetry monitoring and if persistent hypotension with the clinical deterioration Patric transferred ICU for possible vasopressor support. Upon my examination I feel that he is unlikely to progress to this and he has requested to stay on 3 NE. at this time because of the nursing care Qualifiers: Hypotension type: other hypotension type Qualified Code(s): I95.89 - Other hypotension (2) SIRS (systemic inflammatory response syndrome) Current Visit: Yes Status: Acute With worsening leukocytosis or suspect that the patient has an underlying infectious process which is difficult to pinpoint at this point. Does not appear to be a primary lung pathology. This may be a surgical site infection which appears unlikely based upon examination. Alternatively this could be urinary tract infection with urinary analysis pending -He is started on empiric antimicrobials which is reasonable planned to de- escalate over the next 48 hours. If no evidence of MRSA within 24 hours I suspect that this could be stopped especially with his worsening GFR (3) Acute blood loss as cause of postoperative anemia Current Visit: Yes Status: Acute The patient is on anticoagulant with theXarelto his of mild postoperative anemia did not have an appropriate increment of 2 units of PRBCs yesterday. However blood counts have remained stable this morning and in the context of ongoing anticoagulant I suspect of active bleeding were present that this would be much more pronounced. Nevertheless if I would trend hemoglobin every 6 hours and did goal transfusion would be greater than 7 currently. If persistent anemia would need to CTA of the abdomen and pelvis including right hip. Clearly with his underlying decline in GFR at this could have deleterious effects but bleeding site would need to be identified regardless. There is no clear evidence of a gastrointestinal hemorrhage at this time (4) Femoral neck fracture Current Visit: Yes Status: Acute His postoperative with the orthopedic service following there been no postsurgical complications thus far Qualifiers: Encounter type: subsequent encounter Fracture type: closed Laterality: right Qualified Code(s): S72.001D - Fracture of unspecified part of neck of right femur, subsequent encounter for closed fracture with routine healing (5) CHF (congestive heart failure) Current Visit: Yes Status: Chronic Patient has a history of heart failure with preserved ejection fraction right now he is saturating well on room air without evidence of volume overload I recommend continue judicious use of colloid infusion while holding antihypertensives and diuretics. Thank you for this consultation please call with any questions Qualifiers: Heart failure type: diastolic Heart failure chronicity: chronic Qualified Code(s): I50.32 - Chronic diastolic (congestive) heart failure History of Present Illness Consult date: 01/26/18 Requesting physician: Isidra Paul Reason for consult: other (Hypotension ) Chief complaint: Low Blood Pressure History of present illness: This is a 62-year-old gentleman with a history of CHF and atrial fibrillation status post PPM on long-term anticoagulation CKD3 transferred from [facility] after he was noted to have an acute fracture the right femoral neck. Approximately 9 days prior to admission he tripped over a cord and fell on his right hip and had complained of pain since. At that time he was evaluated but no fracture was found per medical record became walker dependent and while ambulating with his walker prior to admission to the ED had had another fall after his left hip gave out and he fell on his side but denied any syncope at that time. The patient underwent Robotic assisted right total hip replacement on 01/24 without complication. Pulmonary was consulted because the patient has become progressively hypotensive of unclear etiology possibly related to sepsis with concern that the patient may need transfer to intensive care unit for further treatment. During my examination the patient stated that he feels fine. He denies any dizziness or shortness of breath he denies cough/sputum production. Denies abdominal pain. He had some hiccups that started earlier today after he was woken up by the nurse but they are particularly troubling to him. He denies any burning with urination. Past Med Surg Social Fam HX - Past Medical History Medical history: atrial fibrillation, CHF, coronary artery disease, diabetes, hypertension Additional medical history: Gout, Pacemaker Psychiatric history: depression - Past Surgical History Surgical History: cataract, pacemaker/AICD, other Additional surgical history: R KNEE SCOPE, Cardiac ablation, Multiple heart caths - Social History Smoking Status: Never smoker Smokeless Tobacco Status: No Alcohol use: none Drug use: none - Family History Father Hx Family Cardiac Disorders: Yes Hx Family Cancer: Yes Hx Family Endocrine Disorder: Yes Sister Hx Family Cardiac Disorders: Yes Medications and Allergies Metoprolol XL (24 HR) Succ [Toprol XL] 50 mg PO BID 05/15/16 [History] Sertraline [Zoloft] 100 mg PO DAILY 05/15/16 [History] Torsemide [Demadex] 60 mg PO BID 05/15/16 [History] Cinnamon Bark [Cinnamon] 1,000 mg PO BID 10/23/17 [History] Melatonin 10 mg PO HS 10/23/17 [History] Rivaroxaban [Xarelto] 20 mg PO DAILY 10/23/17 [History] Tamsulosin [Flomax] 0.4 mg PO DAILY 10/23/17 [History] HYDROcodone/Acet 5/325 mg [Veblen 5-325 mg] 1 tab PO Q6H 4 Days #14 tab 01/12/18 [Rx] Polyethylene Glycol 3350 [MiraLAX] 17 gm PO DAILY 01/21/18 [History] SitaGLIPtin [Januvia] 100 mg PO DAILY 01/21/18 [History] Aspirin [Adult Aspirin Regimen] 81 mg PO DAILY 01/22/18 [History] C/Sourcherry/Celery/Grape Seed [Tart Willard Capsule] 1 cap PO DAILY 01/22/18 [ History] Insulin ASPART [Novolog Flexpen] 2 unit SQ TIDWM 01/22/18 [History] Insulin Glargine,Hum.rec.anlog [Toujeo Solostar] 15 units SQ HS 01/22/18 [ History] Multivitamin [One Daily Essential] 1 tab PO DAILY 01/22/18 [History] Omeprazole/Sodium Bicarbonate [Zegerid 20 mg Capsule] 1 cap PO Q48H PRN [History] Potassium Chloride [Klor-Con 10] 10 meq PO BID 01/22/18 [History] 3 Allergy/AdvReac Type Severity Reaction Status Date / Time tetanus toxoid, adsorbed Allergy Hives Verified 01/22/18 10:11 NSAIDS (Non-Steroidal AdvReac See Verified 01/22/18 10:38 Anti-Inflamma Comments All Systems: The remainder of the systems were reviewed and are negative Physical Examination Vital Signs: Vital Signs, Last 4 Hours Temp Pulse Resp BP Pulse Ox 01/26/18 08:45 85/40 01/26/18 07:44 97.7 F 65 17 90/50 98 General appearance: no acute distress Eyes: nonicteric ENT: oropharynx moist Mallampati (class): 4 Neck: supple Effort: normal Auscultation: bilateral: clear Cardiovascular: regular rate and rhythm Gastrointestinal: normoactive bowel sounds, soft, non-tender Integumentary: normal Extremities: no cyanosis, no edema, no clubbing, pink and warm, pulses normal Musculoskeletal: other (Right hip postop changes dressings appear clean dry and intact there is no evidence of infection at the incision site. There is no severe underlying ecchymotic changes) normal mental status, non-focal exam mood appropriate Results - Laboratory Findings CBC and BMP: 01/26/18 09:54 01/26/18 00:21 PT/INR, D-dimer PT 18.5 Seconds (9.4-12.1) H 01/24/18 06:41 Abnormal lab findings: Abnormal lab results WBC 25.6 K/mcL (4.3-11.1) H 01/26/18 09:54 RBC 3.06 M/mcL (4.19-5.50) L 01/26/18 09:54 Hgb 8.9 g/dL (12.9-16.9) L 01/26/18 09:54 Hct 26.1 % (37.5-50.1) L 01/26/18 09:54 RDW 14.8 % (11.5-14.5) H 01/26/18 09:54 Neutrophils # 23.7 K/mcL (1.6-8.9) H 01/26/18 00:21 Monocytes # 2.3 K/mcL (0.0-1.3) H 01/26/18 00:21 Toxic Granulation Present (Not Present) A 01/26/18 00:21 PT 18.5 Seconds (9.4-12.1) H 01/24/18 06:41 Sodium 129 mEq/L (136-145) L 01/26/18 00:21 Chloride 93 mEq/L (98-107) L 01/26/18 00:21 BUN 56 mg/dL (8-23) H 01/26/18 00:21 Creatinine 1.82 mg/dL (0.70-1.30) H 01/26/18 00:21 Est GFR ( Amer) 46 (> 60) L 01/26/18 00:21 Est GFR (Non-Af Amer) 38 (> 60) L 01/26/18 00:21 BUN/Creatinine Ratio 31 (6-26) H 01/26/18 00:21 Glucose 165 mg/dL (70-105) H 01/26/18 00:21 POC Glucose 166 mg/dL (70-99) H 01/25/18 21:29 Calcium 8.0 mg/dL (8.6-10.3) L 01/26/18 00:21 Total Bilirubin 1.6 mg/dL (0.3-1.0) H 01/26/18 08:27 Direct Bilirubin 0.9 mg/dL (0.0-0.2) H 01/26/18 08:27 ALT 5 Units/L (7-52) L 01/26/18 08:27 B-Natriuretic Peptide 146 pg/mL (Less than 100) H 01/25/18 22:55 Serum Total Protein 5.9 g/dL (6.4-8.9) L 01/26/18 08:27 Albumin 3.2 g/dL (3.5-5.7) L 01/26/18 08:27 Urine Clarity Cloudy (Clear) A 01/21/18 21:05 Ur Leukocyte Esterase Moderate (Negative) H 01/21/18 21:05 Urine Microscopic WBC 15-30 per hpf (0-3) H 01/21/18 21:05 Ur Squamous Epith Cells Moderate per lpf (None-Few) H 01/21/18 21:05 Urine Bacteria Many per hpf (None-Few) H 01/21/18 21:05 Ur Culture Indicated? YES (NO) A 01/21/18 21:05 - Microbiology Findings Microbiology Findings: Microbiology, Last 48 Hours 01/25/18 19:53 Blood Culture - Preliminary Peripheral Venipuncture Culture is incubating and being continuously monitored for growth. Final report to follow. 01/25/18 19:53 Blood Culture - Preliminary Peripheral Venipuncture Culture is incubating and being continuously monitored for growth. Final report to follow. 01/21/18 21:05 Urine Culture - Final Urine,Clean Catch Culture is grossly mixed, unable to properly interpret. Please repeat if indicated. - Diagnostic Findings Chest x-ray: report reviewed, image reviewed - Clinical Findings Intake & Output: Intake & Output 01/25/18 01/26/18 01/26/18 23:59 07:59 15:59 Intake Total 577 / 577 100 / 100 Output Total 750 / 750 450 / 450 Balance -173 / -173 -350 / -350 Consult Discharge Plan - Plan Referrals: NONE,PCP [Primary Care Provider] -
[2018-01-26] MEDS: Acetaminophen 325 MG TABLET PO PRN (11:31)
[2018-01-26 13:18] LABS: Protein/Creatinine Ratio,Urine 0.24 mg/mg (0.00-0.20)
[2018-01-26] MEDS: Mag Hydrox/Al Hydrox/Simeth 30 ML UDC PO PRN ×2 (14:32→18:00)
[2018-01-26 15:07] LABS: Hematocrit 26.4 % (37.5-50.1); Hemoglobin 9.1 g/dL (12.9-16.9)
[2018-01-26 16:19] LABS: Hematocrit 26.5 % (37.5-50.1); Hemoglobin 9.1 g/dL (12.9-16.9)
--- NOTE | 2018-01-26 17:08 | Orthopedics Progress Note ---
Date of Encounter: 01/26/18 Time of Encounter: 17:06 Subjective Principal diagnosis: Status post right total hip arthroplasty Interval history: The patient is without complaints. Afebrile vital signs are stable. Incision is clean dry and intact. Neurovascularly intact with regard to bilateral lower extremities. Fires all upper and lower extremity motor groups. N Assessment : stable. Plan mobilize ,continue analgesics, discharge planning. Has received 1 unit unit packed red blood cells and albumin. Objective Vital signs: Vital Signs Temp Pulse Resp BP Pulse Ox 01/26/18 15:22 97.7 F 84 17 109/63 93 01/26/18 11:46 98.1 F 61 16 95/52 01/26/18 10:35 95/42 01/26/18 08:45 85/40 01/26/18 07:44 97.7 F 65 17 90/50 98 01/26/18 06:04 98.2 F 70 14 85/48 98 01/26/18 04:01 98.1 F 63 14 84/52 98 01/26/18 02:00 82/38 01/25/18 23:57 14 90/44 01/25/18 23:26 82/38 01/25/18 22:52 98.8 F 62 14 88/45 97 01/25/18 21:05 98/61 01/25/18 20:55 96/62 01/25/18 18:44 98.2 F 68 16 94/44 98 Intake and Output 01/26/18 01/26/18 01/26/18 07:59 15:59 23:59 Intake Total 100 / 100 Output Total 450 / 450 350 / 350 Balance -350 / -350 -350 / -350 Intake: IV Fluids 100 / 100 Zosyn 3.375 GM In 0.9 % Sodium 100 / 100 Chloride (Mini-Bag +) 100 ML @ 25 mls/hr IVPB Q8HR [facility] Rx#: [id number] Output: Urine 450 / 450 350 / 350 Other: Meal Lunch Percent of Meal Consumed 25% Blood Glucose* 159 184 177 - Labs CBC & BMP: 01/26/18 16:06 01/26/18 00:21 Labs: Abnormal lab results WBC 25.6 K/mcL (4.3-11.1) H 01/26/18 09:54 RBC 3.06 M/mcL (4.19-5.50) L 01/26/18 09:54 Hgb 9.1 g/dL (12.9-16.9) L 01/26/18 16:06 Hct 26.5 % (37.5-50.1) L 01/26/18 16:06 RDW 14.8 % (11.5-14.5) H 01/26/18 09:54 Neutrophils # 22.3 K/mcL (1.6-8.9) H 01/26/18 09:54 Monocytes # 2.0 K/mcL (0.0-1.3) H 01/26/18 09:54 Toxic Granulation Present (Not Present) A 01/26/18 00:21 PT 18.5 Seconds (9.4-12.1) H 01/24/18 06:41 Sodium 129 mEq/L (136-145) L 01/26/18 00:21 Chloride 93 mEq/L (98-107) L 01/26/18 00:21 BUN 56 mg/dL (8-23) H 01/26/18 00:21 Creatinine 1.82 mg/dL (0.70-1.30) H 01/26/18 00:21 Est GFR ( Amer) 46 (> 60) L 01/26/18 00:21 Est GFR (Non-Af Amer) 38 (> 60) L 01/26/18 00:21 BUN/Creatinine Ratio 31 (6-26) H 01/26/18 00:21 Glucose 165 mg/dL (70-105) H 01/26/18 00:21 POC Glucose 184 mg/dL (70-99) H 01/26/18 11:45 Calcium 8.0 mg/dL (8.6-10.3) L 01/26/18 00:21 Total Bilirubin 1.6 mg/dL (0.3-1.0) H 01/26/18 08:27 Direct Bilirubin 0.9 mg/dL (0.0-0.2) H 01/26/18 08:27 ALT 5 Units/L (7-52) L 01/26/18 08:27 B-Natriuretic Peptide 146 pg/mL (Less than 100) H 01/25/18 22:55 Serum Total Protein 5.9 g/dL (6.4-8.9) L 01/26/18 08:27 Albumin 3.2 g/dL (3.5-5.7) L 01/26/18 08:27 Urine Clarity Cloudy (Clear) A 01/21/18 21:05 Ur Leukocyte Esterase Moderate (Negative) H 01/21/18 21:05 Urine Microscopic WBC 15-30 per hpf (0-3) H 01/21/18 21:05 Ur Squamous Epith Cells Moderate per lpf (None-Few) H 01/21/18 21:05 Urine Bacteria Many per hpf (None-Few) H 01/21/18 21:05 Ur Culture Indicated? YES (NO) A 01/21/18 21:05 Protein/Creatinin Ratio 0.24 mg/mg (0.00-0.20) H 01/26/18 12:25 - VTE Documentation of Mechanical Device: Venous foot pump, device Consult Discharge Plan - Plan Referrals: NONE,PCP [Primary Care Provider] -
[2018-01-26] MEDS: Melatonin 3 MG TABLET PO SCH (21:18)
[2018-01-26] MEDS: *HR* OxyCODONE/APAP 5/325 TABLET PO PRN (21:18)
[2018-01-26] MEDS: Insulin DETEMIR 100 UNIT/ML X5UNITS SQ SCH (21:24)
[2018-01-27 00:39] LABS: Basophils % 0.1 %; Eosinophils # 0.1 K/mcL (0.0-0.6); Eosinophils % 0.3 %; Hemoglobin 8.1 g/dL (12.9-16.9); Immature Granulocytes % 1.3 % (0-4); Lymphocytes # 1.1 K/mcL (0.6-4.6); Lymphocytes % 5.4 %; Mean Corpuscular HGB Conc 33.8 g/dL (31.6-35.5); Mean Corpuscular Hemoglobin 28.8 pg (28.0-33.3); Mean Corpuscular Volume 85.4 fL (83.0-100.0); Mean Platelet Volume 11.3 fL (9.4-12.4); Monocytes # 1.7 K/mcL (0.0-1.3); Monocytes % 8.7 %; Neutrophils # 16.7 K/mcL (1.6-8.9); Platelet Count 146 K/mcL (140-400); Red Blood Count 2.81 M/mcL (4.19-5.50); Red Cell Distribution Width 14.7 % (11.5-14.5); Segmented Neutrophils % 84.2 %
[2018-01-27 00:57] LABS: Albumin 2.9 g/dL (3.5-5.7); Albumin/Globulin Ratio 1.3 (1.1-2.2); Bilirubin,Total 1.2 mg/dL (0.3-1.0); Calcium 8.4 mg/dL (8.6-10.3); Globulin 2.3 g/dL (2.4-3.5); Potassium 4.3 mEq/L (3.5-5.1); Total Protein 5.2 g/dL (6.4-8.9)
--- NOTE | 2018-01-27 06:49 | Orthopedics Progress Note ---
Date of Encounter: 01/27/18 Time of Encounter: 06:48 Subjective Principal diagnosis: Status post right total hip arthroplasty Interval history: Patient was seen this morning doing well without complaints. Afebrile vital signs stable. Operative extremity: Neurovascularly intact Dressing clean dry and intact Calves nontender Assessment and plan: Continue with postoperative care Hemoglobin from 9.1 8.1, but still recommend transfusion deferred a hospitalist. Objective Vital signs: Vital Signs Temp Pulse Resp BP Pulse Ox 01/27/18 06:42 97.6 F 62 17 102/61 99 01/27/18 03:23 98.1 F 60 18 99/60 99 01/26/18 23:56 97.7 F 63 16 93/50 96 01/26/18 18:57 98.5 F 64 16 103/53 96 01/26/18 15:22 97.7 F 84 17 109/63 93 01/26/18 11:46 98.1 F 61 16 95/52 01/26/18 10:35 95/42 01/26/18 08:45 85/40 01/26/18 07:44 97.7 F 65 17 90/50 98 Intake and Output 01/26/18 01/26/18 01/27/18 15:59 23:59 07:59 Intake Total 100 / 100 100 / 100 550 / 550 Output Total 350 / 350 625 / 625 1000 / 1000 Balance -250 / -250 -525 / -525 -450 / -450 Intake: IV Fluids 100 / 100 100 / 100 100 / 100 Zosyn 3.375 GM In 0.9 % Sodium 100 / 100 100 / 100 100 / 100 Chloride (Mini-Bag +) 100 ML @ 25 mls/hr IVPB Q8HR [facility] Rx#: [id number] Oral 0 / 0 450 / 450 Output: Urine 350 / 350 625 / 625 1000 / 1000 Other: Meal Lunch Percent of Meal Consumed 25% Stool Size Moderate Large Stool Consistency formed formed Stool Characteristics Normal for Patient Stool Color Brown Brown # Bowel Movements 1 1 Weight 113.72 kg Blood Glucose* 184 155 Patient Weight 01/27/18 23:59 Weight 113.72 kg - Labs CBC & BMP: 01/27/18 00:22 01/27/18 00:22 Labs: Abnormal lab results WBC 19.8 K/mcL (4.3-11.1) H 01/27/18 00:22 RBC 2.81 M/mcL (4.19-5.50) L 01/27/18 00:22 Hgb 8.1 g/dL (12.9-16.9) L 01/27/18 00:22 Hct 24.0 % (37.5-50.1) L 01/27/18 00:22 RDW 14.7 % (11.5-14.5) H 01/27/18 00:22 Neutrophils # 16.7 K/mcL (1.6-8.9) H 01/27/18 00:22 Monocytes # 1.7 K/mcL (0.0-1.3) H 01/27/18 00:22 Toxic Granulation Present (Not Present) A 01/26/18 00:21 PT 18.5 Seconds (9.4-12.1) H 01/24/18 06:41 Sodium 128 mEq/L (136-145) L 01/27/18 00:22 Chloride 96 mEq/L (98-107) L 01/27/18 00:22 BUN 63 mg/dL (8-23) H 01/27/18 00:22 Creatinine 1.57 mg/dL (0.70-1.30) H 01/27/18 00:22 Est GFR ( Amer) 55 (> 60) L 01/27/18 00:22 Est GFR (Non-Af Amer) 45 (> 60) L 01/27/18 00:22 BUN/Creatinine Ratio 40 (6-26) H 01/27/18 00:22 Glucose 169 mg/dL (70-105) H 01/27/18 00:22 POC Glucose 184 mg/dL (70-99) H 01/26/18 11:45 Calcium 8.4 mg/dL (8.6-10.3) L 01/27/18 00:22 Total Bilirubin 1.2 mg/dL (0.3-1.0) H 01/27/18 00:22 Direct Bilirubin 0.9 mg/dL (0.0-0.2) H 01/26/18 08:27 ALT 5 Units/L (7-52) L 01/27/18 00:22 B-Natriuretic Peptide 146 pg/mL (Less than 100) H 01/25/18 22:55 Serum Total Protein 5.2 g/dL (6.4-8.9) L 01/27/18 00:22 Albumin 2.9 g/dL (3.5-5.7) L 01/27/18 00:22 Globulin 2.3 g/dL (2.4-3.5) L 01/27/18 00:22 Urine Clarity Cloudy (Clear) A 01/21/18 21:05 Ur Leukocyte Esterase Moderate (Negative) H 01/21/18 21:05 Urine Microscopic WBC 15-30 per hpf (0-3) H 01/21/18 21:05 Ur Squamous Epith Cells Moderate per lpf (None-Few) H 01/21/18 21:05 Urine Bacteria Many per hpf (None-Few) H 01/21/18 21:05 Ur Culture Indicated? YES (NO) A 01/21/18 21:05 Protein/Creatinin Ratio 0.24 mg/mg (0.00-0.20) H 01/26/18 12:25 - VTE Documentation of Mechanical Device: Venous foot pump, device Consult Discharge Plan - Plan Referrals: NONE,PCP [Primary Care Provider] -
--- NOTE | 2018-01-27 07:00 | Pulmonology Progress Note ---
Date of Encounter: 01/27/18 Time of Encounter: 07:00 Assessment and Plan (1) Hypotension Current Visit: Yes Status: Acute Yesterday the primary medicine service very appropriately had checked his random cortisol level which was very low less than 5. And given his hyponatremia this is a very possible diagnosis given the relative possibly of other symptoms. Recommend formal ACTH stimulation test We will defer to the medicine service for initiation of stress dose steroids if abnormal Patient remains hemodynamically stable today. And asymptomatic I do not think he will benefit from further crystalloid and colloid infusion Continue to hold antihypertensives and diuretics Qualifiers: Hypotension type: other hypotension type Qualified Code(s): I95.89 - Other hypotension (2) SIRS (systemic inflammatory response syndrome) Current Visit: Yes Status: Acute White count has trended down overnight. He remains afebrile. He remains on broad-spectrum antibiotics but without evidence of infection. Urine was negative for growth I recommend 4 hours more of antibiotics and then can likely de-escalate/stop (3) Acute blood loss as cause of postoperative anemia Current Visit: Yes Status: Acute Hemoglobin 8.1 today down from 9.1 yesterday and there is some increased bleeding around the incision site. In general terms transfusion for hemoglobin counts lower than 7 or recommended without evidence of active ischemia (4) Femoral neck fracture Current Visit: Yes Status: Acute This is being managed by orthopedics Qualifiers: Encounter type: subsequent encounter Fracture type: closed Laterality: right Fracture healing: with routine healing Qualified Code(s): S72.001D - Fracture of unspecified part of neck of right femur, subsequent encounter for closed fracture with routine healing (5) CHF (congestive heart failure) Current Visit: Yes Status: Chronic Blood pressure on lower side right now holding diuretic no evidence of hypoxemia or volume overload Pulmonary will sign off please call with any questions Qualifiers: Heart failure type: diastolic Heart failure chronicity: chronic Qualified Code(s): I50.32 - Chronic diastolic (congestive) heart failure Subjective Principal diagnosis: Status post right total hip arthroplasty Interval history: Patient has done well overnight blood pressure has improved slightly. Hemoglobin has been slightly lower but generally stable longterm more bleeding noted by the physical therapist around the incision site in the right hip region. He denies complaints Objective PUL Vital signs: Last Vital Signs Temp 97.6 F 01/27/18 06:42 Pulse 62 01/27/18 06:42 Resp 17 01/27/18 06:42 BP 102/61 01/27/18 06:42 Pulse Ox 99 01/27/18 06:42 General appearance: no acute distress Eyes: nonicteric Neck: supple Effort: normal Auscultation: bilateral: clear Cardiovascular: regular rate and rhythm Gastrointestinal: normoactive bowel sounds, soft, non-tender Extremities: pink and warm, pulses normal, other (Right hip with dressings and examined notable for some serosanguineous drainage) normal mental status, non-focal exam mood appropriate Results - Laboratory Findings CBC and BMP: 01/27/18 00:22 01/27/18 00:22 PT/INR, D-dimer PT 18.5 Seconds (9.4-12.1) H 01/24/18 06:41 Abnormal lab findings: Abnormal lab results WBC 19.8 K/mcL (4.3-11.1) H 01/27/18 00:22 RBC 2.81 M/mcL (4.19-5.50) L 01/27/18 00:22 Hgb 8.1 g/dL (12.9-16.9) L 01/27/18 00:22 Hct 24.0 % (37.5-50.1) L 01/27/18 00:22 RDW 14.7 % (11.5-14.5) H 01/27/18 00:22 Neutrophils # 16.7 K/mcL (1.6-8.9) H 01/27/18 00:22 Monocytes # 1.7 K/mcL (0.0-1.3) H 01/27/18 00:22 Toxic Granulation Present (Not Present) A 01/26/18 00:21 PT 18.5 Seconds (9.4-12.1) H 01/24/18 06:41 Sodium 128 mEq/L (136-145) L 01/27/18 00:22 Chloride 96 mEq/L (98-107) L 01/27/18 00:22 BUN 63 mg/dL (8-23) H 01/27/18 00:22 Creatinine 1.57 mg/dL (0.70-1.30) H 01/27/18 00:22 Est GFR ( Amer) 55 (> 60) L 01/27/18 00:22 Est GFR (Non-Af Amer) 45 (> 60) L 01/27/18 00:22 BUN/Creatinine Ratio 40 (6-26) H 01/27/18 00:22 Glucose 169 mg/dL (70-105) H 01/27/18 00:22 POC Glucose 184 mg/dL (70-99) H 01/26/18 11:45 Calcium 8.4 mg/dL (8.6-10.3) L 01/27/18 00:22 Total Bilirubin 1.2 mg/dL (0.3-1.0) H 01/27/18 00:22 Direct Bilirubin 0.9 mg/dL (0.0-0.2) H 01/26/18 08:27 ALT 5 Units/L (7-52) L 01/27/18 00:22 B-Natriuretic Peptide 146 pg/mL (Less than 100) H 01/25/18 22:55 Serum Total Protein 5.2 g/dL (6.4-8.9) L 01/27/18 00:22 Albumin 2.9 g/dL (3.5-5.7) L 01/27/18 00:22 Globulin 2.3 g/dL (2.4-3.5) L 01/27/18 00:22 Urine Clarity Cloudy (Clear) A 01/21/18 21:05 Ur Leukocyte Esterase Moderate (Negative) H 01/21/18 21:05 Urine Microscopic WBC 15-30 per hpf (0-3) H 01/21/18 21:05 Ur Squamous Epith Cells Moderate per lpf (None-Few) H 01/21/18 21:05 Urine Bacteria Many per hpf (None-Few) H 01/21/18 21:05 Ur Culture Indicated? YES (NO) A 01/21/18 21:05 Protein/Creatinin Ratio 0.24 mg/mg (0.00-0.20) H 01/26/18 12:25 - Microbiology Findings Microbiology Findings: Microbiology, Last 48 Hours 01/25/18 19:53 Blood Culture - Preliminary Peripheral Venipuncture Culture is incubating and being continuously monitored for growth. Final report to follow. 01/25/18 19:53 Blood Culture - Preliminary Peripheral Venipuncture Culture is incubating and being continuously monitored for growth. Final report to follow. - Clinical Findings Intake & Output: Intake & Output 01/26/18 01/26/18 01/27/18 15:59 23:59 07:59 Intake Total 100 / 100 100 / 100 550 / 550 Output Total 350 / 350 625 / 625 1000 / 1000 Balance -250 / -250 -525 / -525 -450 / -450 Weight 113.72 kg - VTE Documentation of Mechanical Device: Venous foot pump, device Consult Discharge Plan - Plan Referrals: NONE,PCP [Primary Care Provider] -
--- NOTE | 2018-01-27 08:15 | Internal Med Progress Note ---
<Stevan Griffin S - Last Filed: 01/27/18 12:06> Date of Encounter: 01/27/18 Time of Encounter: 08:13 - Assessment and plan (1) Sepsis Current Visit: Yes Status: Acute Assessment and plan: Suspected sepsis. Pt is started on PipTazo yesterday and Vacomycin yesterday. He is given a NS bolus. Will see what bolus does. Following blood pressure - today is 102/61, improved since yesterday was in the 80's. Pt is afrebrile. Still has a wbc count of 19.8 (down from 25.6... leukemoid rxn vs neutrophilia of corticosteroids vs infxn). Qualifiers: Sepsis type: sepsis due to unspecified organism Qualified Code(s): A41.9 - Sepsis, unspecified organism (2) Gout Current Visit: Yes Status: Acute Assessment and plan: Patient has been receiving prednisone. Taper is finsihed. He c/o bilateral toe pain today. Give colchichine 1.2mg now then 0.6 mg 1 hr after first dose.Uric acid ordered Qualifiers: Gout site: toe Gout etiology: unspecified cause Chronicity: unspecified Laterality: right Qualified Code(s): M10.9 - Gout, unspecified (3) Acute blood loss as cause of postoperative anemia Current Visit: Yes Status: Acute Assessment and plan: Hemoglobin today is 8.1, down from 9.1 Will ordr H&H to be done again today and CBC for the morning. Will check a FOBT to r/o UGIB since pt is on xarelto. retroperitoneal and abd ultrasound are both WNL. (4) Femoral neck fracture Current Visit: Yes Status: Acute Assessment and plan: POD#3 s/p JOSE. Pt tolerated procedure well Qualifiers: Encounter type: subsequent encounter Fracture type: closed Laterality: right Fracture healing: with routine healing Qualified Code(s): S72.001D - Fracture of unspecified part of neck of right femur, subsequent encounter for closed fracture with routine healing (5) CHF (congestive heart failure) Current Visit: Yes Status: Chronic Assessment and plan: Currently on Torsemide. Symptoms resolved. ECHO showed LVEDF of 50% Qualifiers: Heart failure type: diastolic Heart failure chronicity: chronic Qualified Code(s): I50.32 - Chronic diastolic (congestive) heart failure (6) CKD (chronic kidney disease), stage III Current Visit: Yes Status: Chronic Assessment and plan: Monitor BUN/[employer]. (7) Diabetes mellitus Current Visit: Yes Status: Chronic Assessment and plan: Increase insulin Lispro from low to medium dose q6hr. Poorly controlled blood glucose. Qualifiers: Diabetes mellitus type: type 2 Diabetes mellitus snf insulin use: with intermediate card tender use Diabetes mellitus complication status: with kidney complications Diabetes mellitus complication detail: with chronic kidney disease Chronic kidney disease stage: stage 3 (moderate) Qualified Code(s): E11.22 - Type 2 diabetes mellitus with diabetic chronic kidney disease; N18.3 - Chronic kidney disease, stage 3 (moderate); Z79.4 - intermediate (current) use of insulin (8) Leukocytosis Current Visit: Yes Status: Acute Assessment and plan: WBC count of 19.8, down from 25.6 ... leukemoid rxn vs neutrophilia from glucocorticoids vs infxn Qualifiers: Leukocytosis type: leukemoid reaction Qualified Code(s): D72.823 - Leukemoid reaction (9) DVT prophylaxis Current Visit: Yes Status: Acute Assessment and plan: Pt has compression device for legs (10) Afib Current Visit: Yes Status: Chronic Assessment and plan: Patient is on Xarelto. No symptoms at this time Qualifiers: Atrial fibrillation type: paroxysmal Qualified Code(s): I48.0 - Paroxysmal atrial fibrillation (11) Acute kidney injury Current Visit: Yes Status: Acute Assessment and plan: Pt BUN of 63, up from 56 yesterday. Vp [employer] 1.53, down from 1.82 yesterday. Likely hypovolemic prerenal failure in etiology. Will montior BUN/[employer]p [employer], order renal fxn in the AM. Continue fluids. - Time Spent With Patient Total time spent is greater than 50% in coordination of care (as documented) at patient's floor/unit and/or counseling patient: less than 15 minutes - Subjective Interval history: 62yo male is seen at bedside. He is here for right femur fx. He is POD#3 s/p total hip arthroplasty. He states that he still has some pain but overall pain has decreased. meds controlling pain. He denies having any fever/chills/CP/SOB/N ,V,D. Pt denies dizziness, numbness, tingling. He states he is working with PTOT. He states his BP is doing much better, today [id number]. ICU consult says condition is stable. Pt also c.o bilateral big toe pain. He has been receiving tx for gout. Giving pt 1.2mg colchchine now then 0.6mg 1 hr after first dose - Constitutional Vitals: Temp Pulse Resp BP Pulse Ox 97.6 F 62 17 102/61 99 01/27/18 06:42 01/27/18 06:42 01/27/18 06:42 01/27/18 06:42 01/27/18 06:42 General appearance: Present: cooperative, A&O X 3, obese - Head Head exam: Present: atraumatic, normal inspection - Neck Neck exam general surgery: Present: supple - Respiratory Respiratory exam: Present: CTAB - Cardiovascular Cardiovascular exam: Present: RRR, +S1, +S2. Absent: JVD - GI/Abdominal GI/Abdominal exam: Present: normal bowel sounds, soft, no peritoneal signs - Incison Incision: Present: clean and dry, intact - Skin Skin exam: Present: intact, normal color Internal Medicine: Result - Labs CBC & Chem 7: 01/27/18 09:02 01/27/18 00:22 Labs: Short CBC 01/26/18 01/26/18 01/26/18 Range/Units 09:54 14:56 16:06 WBC 25.6 H (4.3-11.1) K/mcL Hgb 8.9 L 9.1 L 9.1 L (12.9-16.9) g/dL Hct 26.1 L 26.4 L 26.5 L (37.5-50.1) % Plt Count 188 (140-400) K/mcL Neutrophils # 22.3 H (1.6-8.9) K/mcL 01/27/18 Range/Units 00:22 WBC 19.8 H (4.3-11.1) K/mcL Hgb 8.1 L (12.9-16.9) g/dL Hct 24.0 L (37.5-50.1) % Plt Count 146 (140-400) K/mcL Neutrophils # 16.7 H (1.6-8.9) K/mcL BMP 01/27/18 00:22 Sodium 128 L Potassium 4.3 Chloride 96 L Carbon Dioxide 24 BUN 63 H Creatinine 1.57 H Glucose 169 H Calcium 8.4 L Liver Function 01/26/18 01/27/18 Range/Units 08:27 00:22 Total Bilirubin 1.6 H 1.2 H (0.3-1.0) mg/dL Direct Bilirubin 0.9 H (0.0-0.2) mg/dL AST 17 21 (13-39) Units/L ALT 5 L 5 L (7-52) Units/L Alkaline Phosphatase 102 93 (34-104) Units/L Albumin 3.2 L 2.9 L (3.5-5.7) g/dL - ABG Interpretation ABG results: PT/INR, D-dimer PT 18.5 Seconds (9.4-12.1) H 01/24/18 06:41 - VTE Documentation of Mechanical Device: Venous foot pump, device Consult Discharge Plan - Plan Referrals: NONE,PCP [Primary Care Provider] - <Isidra Paul - Last Filed: 01/27/18 19:08> Date of Encounter: 01/27/18 - Assessment and plan (1) Femoral neck fracture Current Visit: Yes Status: Acute Qualifiers: Encounter type: subsequent encounter Fracture type: closed Laterality: right Fracture healing: with routine healing Qualified Code(s): S72.001D - Fracture of unspecified part of neck of right femur, subsequent encounter for closed fracture with routine healing (2) CHF (congestive heart failure) Current Visit: Yes Status: Chronic Qualifiers: Heart failure type: diastolic Heart failure chronicity: chronic Qualified Code(s): I50.32 - Chronic diastolic (congestive) heart failure (3) CKD (chronic kidney disease), stage III Current Visit: Yes Status: Chronic (4) Diabetes mellitus Current Visit: Yes Status: Chronic Qualifiers: Diabetes mellitus type: type 2 Diabetes mellitus snf insulin use: with snf use Diabetes mellitus complication status: with kidney complications Diabetes mellitus complication detail: with chronic kidney disease Chronic kidney disease stage: stage 3 (moderate) Qualified Code(s): E11.22 - Type 2 diabetes mellitus with diabetic chronic kidney disease; N18.3 - Chronic kidney disease, stage 3 (moderate); Z79.4 - intermediate card tender (current) use of insulin (5) Leukocytosis Current Visit: Yes Status: Acute Qualifiers: Leukocytosis type: leukemoid reaction Qualified Code(s): D72.823 - Leukemoid reaction (6) Gout Current Visit: Yes Status: Acute Qualifiers: Gout site: toe Gout etiology: unspecified cause Chronicity: unspecified Laterality: right Qualified Code(s): M10.9 - Gout, unspecified (7) DVT prophylaxis Current Visit: Yes Status: Acute (8) Afib Current Visit: Yes Status: Chronic Qualifiers: Atrial fibrillation type: paroxysmal Qualified Code(s): I48.0 - Paroxysmal atrial fibrillation (9) Acute blood loss as cause of postoperative anemia Current Visit: Yes Status: Acute (10) Sepsis Current Visit: Yes Status: Acute Qualifiers: Sepsis type: sepsis due to unspecified organism Qualified Code(s): A41.9 - Sepsis, unspecified organism (11) Acute kidney injury Current Visit: Yes Status: Acute - Time Spent With Patient Total time spent is greater than 50% in coordination of care (as documented) at patient's floor/unit and/or counseling patient: - Constitutional Vitals: Temp Pulse Resp BP Pulse Ox 98.4 F 63 16 110/56 97 01/27/18 18:27 01/27/18 18:27 01/27/18 18:27 01/27/18 18:27 01/27/18 18:27 Internal Medicine: Result - Labs CBC & Chem 7: 01/27/18 09:02 01/27/18 00:22 Labs: Short CBC 01/27/18 01/27/18 Range/Units 00:22 09:02 WBC 19.8 H (4.3-11.1) K/mcL Hgb 8.1 L 9.4 L (12.9-16.9) g/dL Hct 24.0 L 28.7 L (37.5-50.1) % Plt Count 146 (140-400) K/mcL Neutrophils # 16.7 H (1.6-8.9) K/mcL BMP 01/27/18 00:22 Sodium 128 L Potassium 4.3 Chloride 96 L Carbon Dioxide 24 BUN 63 H Creatinine 1.57 H Glucose 169 H Calcium 8.4 L Liver Function 01/27/18 Range/Units 00:22 Total Bilirubin 1.2 H (0.3-1.0) mg/dL AST 21 (13-39) Units/L ALT 5 L (7-52) Units/L Alkaline Phosphatase 93 (34-104) Units/L Albumin 2.9 L (3.5-5.7) g/dL - ABG Interpretation ABG results: PT/INR, D-dimer PT 18.5 Seconds (9.4-12.1) H 01/24/18 06:41 - Impressions Impressions Abdomen Ultrasound 01/27/18 10:30 IMPRESSION: Unremarkable right upper quadrant ultrasound status post cholecystectomy. D/ / Keegan Peña MD / Keegan Peña MD Interpreting Provider: Keegan Peña MD Retroperitoneum Ultrasound 01/27/18 11:00 IMPRESSION: Unremarkable ultrasound of the kidneys and urinary bladder. D/ / 01/27/2018 11:15:51 Denzel Sanford MD / [place] Interpreting Provider: Denzel Sanford MD - Attending Attestation I examined this patient and my medical decision-making was reviewed with the Resident Physician. I agree with the documented findings, disposition and treatment plan as described except to the extent set forth below.
[2018-01-27] MEDS ORDERED: Colchicine 0.6 MG TABLET PO ONE (08:52)
[2018-01-27] MEDS: Insulin LISPRO 300 UNITS/3 ML VIAL SQ SCH ×4 (09:37→21:48)
[2018-01-27] MEDS: Piperacillin/Tazobactam 3.375 GM in 0.9 % Sodium Chloride Mini Bag 100 ML IVPB SCH ×2 (09:42→18:49)
[2018-01-27] MEDS: Ascorbic Acid 500 MG TABLET PO SCH ×2 (09:43→18:50)
[2018-01-27] MEDS: Multivit/Ca/Min/Fe/FA 1 TAB TABLET PO SCH (09:43)
[2018-01-27] MEDS: Colchicine 0.6 MG TABLET PO SCH (09:44)
[2018-01-27 10:01] LABS: Hematocrit 28.7 % (37.5-50.1); Hemoglobin 9.4 g/dL (12.9-16.9)
--- NOTE | 2018-01-27 16:40 | Event Note ---
Date of Encounter: 01/27/18 Time of Encounter: 12:40 PCR- POD#3 status post right total hip robotic 01/24 Dr. Louise PCR - Patient seen at bedside. Spouse and relative at bedside. Patient finishing eating dinner. Alert and oriented 3 Labwork and medications reviewed. 01/25: Hemoglobin 8.7 - patient receiving 2 units PRBCs 4: H/H 9.1/26.4 7: H/H 9.4/28.7 Vital signs reviewed - improved blood pressure - being monitored by hospitalist team. Pain control: Adequate. Patient complains of muscle spasms. Patient's electrolytes continue to be imbalanced - patient states he takes supplements at home to help with spasms. Suspect at this point likely related to his electrolyte imbalances. Hospitalist team aware of hyponatremia. Participating in PT. All questions and concerns addressed. Educated on use of incentive spirometer, ambulation, and hydration. Patient educated on post-operative restrictions and care. Addressed: see above. Patient had abdominal and retroperitoneal ultrasounds today which are documented unremarkable. D/C plan: Per hospitalist. Likely ECF once medically stable and auth obtained. Rut Nicolas per - awaiting auth.
[2018-01-27] MEDS: *HR* OxyCODONE/APAP 5/325 TABLET PO PRN (18:50)
[2018-01-27] MEDS: Melatonin 3 MG TABLET PO SCH (21:45)
[2018-01-27] MEDS: Hydrocortisone Sodium Succ 100 MG/2 ML VIAL IVP SCH (21:47)
[2018-01-27] MEDS: Insulin DETEMIR 100 UNIT/ML X5UNITS SQ SCH (21:49)
[2018-01-28 01:00] LABS: Basophils % 0.1 %; Eosinophils # 0.1 K/mcL (0.0-0.6); Eosinophils % 0.6 %; Hematocrit 26.4 % (37.5-50.1); Hemoglobin 8.8 g/dL (12.9-16.9); Immature Granulocytes % 1.4 % (0-4); Lymphocytes # 0.5 K/mcL (0.6-4.6); Mean Corpuscular HGB Conc 33.3 g/dL (31.6-35.5); Mean Corpuscular Hemoglobin 28.9 pg (28.0-33.3); Mean Corpuscular Volume 86.6 fL (83.0-100.0); Mean Platelet Volume 11.1 fL (9.4-12.4); Monocytes # 0.8 K/mcL (0.0-1.3); Monocytes % 5.2 %; Neutrophils # 14.3 K/mcL (1.6-8.9); Platelet Count 168 K/mcL (140-400); Red Blood Count 3.05 M/mcL (4.19-5.50); Red Cell Distribution Width 15.2 % (11.5-14.5); Segmented Neutrophils % 89.7 %
[2018-01-28 01:20] LABS: Albumin 3.3 g/dL (3.5-5.7); Albumin/Globulin Ratio 1.4 (1.1-2.2); Bilirubin,Total 1.4 mg/dL (0.3-1.0); Calcium 8.9 mg/dL (8.6-10.3); Globulin 2.4 g/dL (2.4-3.5); Potassium 4.5 mEq/L (3.5-5.1); Total Protein 5.7 g/dL (6.4-8.9)
[2018-01-28] MEDS: Piperacillin/Tazobactam 3.375 GM in 0.9 % Sodium Chloride Mini Bag 100 ML IVPB SCH ×4 (02:04→23:57)
[2018-01-28] MEDS: Hydrocortisone Sodium Succ 100 MG/2 ML VIAL IVP SCH ×4 (02:05→23:57)
--- NOTE | 2018-01-28 06:42 | Orthopedics Progress Note ---
Date of Encounter: 01/28/18 Time of Encounter: 06:41 Subjective Principal diagnosis: Status post right total hip arthroplasty Interval history: Patient was seen this morning doing well without complaints. States he is feeling better Afebrile vital signs stable. Operative extremity: Neurovascularly intact Dressing clean dry and intact Calves nontender Assessment and plan: Continue with postoperative care Hemoglobin 8.8, ultrasound of kidneys negative, continue plan as per hospital team Objective Vital signs: Vital Signs Temp Pulse Resp BP Pulse Ox 01/28/18 04:03 98.3 F 62 16 115/67 97 01/27/18 23:33 98.6 F 60 16 112/62 98 01/27/18 18:27 98.4 F 63 16 110/56 97 01/27/18 14:46 98.6 F 60 17 93/50 99 01/27/18 11:53 98.4 F 60 17 120/69 100 01/27/18 06:42 97.6 F 62 17 102/61 99 Intake and Output 01/27/18 01/27/18 01/28/18 15:59 23:59 07:59 Intake Total 100 / 100 300 / 300 300 / 300 Output Total 750 / 750 800 / 800 Balance -650 / -650 300 / 300 -500 / -500 Intake: IV Fluids 100 / 100 100 / 100 Zosyn 3.375 GM In 0.9 % Sodium 100 / 100 100 / 100 Chloride (Mini-Bag +) 100 ML @ 25 mls/hr IVPB Q8HR [facility] Rx#: [id number] Oral 200 / 200 300 / 300 Output: Urine 750 / 750 800 / 800 Other: Meal Breakfast Percent of Meal Consumed 0% Blood Glucose* 98 178 - Labs CBC & BMP: 01/28/18 00:33 01/28/18 00:33 Labs: Abnormal lab results WBC 16.0 K/mcL (4.3-11.1) H 01/28/18 00:33 RBC 3.05 M/mcL (4.19-5.50) L 01/28/18 00:33 Hgb 8.8 g/dL (12.9-16.9) L 01/28/18 00:33 Hct 26.4 % (37.5-50.1) L 01/28/18 00:33 RDW 15.2 % (11.5-14.5) H 01/28/18 00:33 Neutrophils # 14.3 K/mcL (1.6-8.9) H 01/28/18 00:33 Lymphocytes # 0.5 K/mcL (0.6-4.6) L 01/28/18 00:33 Toxic Granulation Present (Not Present) A 01/26/18 00:21 PT 18.5 Seconds (9.4-12.1) H 01/24/18 06:41 Sodium 128 mEq/L (136-145) L 01/28/18 00:33 Chloride 96 mEq/L (98-107) L 01/28/18 00:33 BUN 58 mg/dL (8-23) H 01/28/18 00:33 Creatinine 1.60 mg/dL (0.70-1.30) H 01/28/18 00:33 Est GFR ( Amer) 53 (> 60) L 01/28/18 00:33 Est GFR (Non-Af Amer) 44 (> 60) L 01/28/18 00:33 BUN/Creatinine Ratio 36 (6-26) H 01/28/18 00:33 Glucose 172 mg/dL (70-105) H 01/28/18 00:33 Uric Acid 7.7 mg/dL (2.3-7.6) H 01/27/18 12:21 Total Bilirubin 1.4 mg/dL (0.3-1.0) H 01/28/18 00:33 Direct Bilirubin 0.9 mg/dL (0.0-0.2) H 01/26/18 08:27 Alkaline Phosphatase 127 Units/L (34-104) H 01/28/18 00:33 B-Natriuretic Peptide 146 pg/mL (Less than 100) H 01/25/18 22:55 Serum Total Protein 5.7 g/dL (6.4-8.9) L 01/28/18 00:33 Albumin 3.3 g/dL (3.5-5.7) L 01/28/18 00:33 Urine Clarity Cloudy (Clear) A 01/21/18 21:05 Ur Leukocyte Esterase Moderate (Negative) H 01/21/18 21:05 Urine Microscopic WBC 15-30 per hpf (0-3) H 01/21/18 21:05 Ur Squamous Epith Cells Moderate per lpf (None-Few) H 01/21/18 21:05 Urine Bacteria Many per hpf (None-Few) H 01/21/18 21:05 Ur Culture Indicated? YES (NO) A 01/21/18 21:05 Protein/Creatinin Ratio 0.24 mg/mg (0.00-0.20) H 01/26/18 12:25 - VTE Documentation of Mechanical Device: Venous foot pump, device Consult Discharge Plan - Plan Referrals: NONE,PCP [Primary Care Provider] -
[2018-01-28] MEDS: Ascorbic Acid 500 MG TABLET PO SCH ×2 (08:03→15:55)
[2018-01-28] MEDS: Multivit/Ca/Min/Fe/FA 1 TAB TABLET PO SCH (08:04)
[2018-01-28] MEDS: Insulin LISPRO 300 UNITS/3 ML VIAL SQ SCH ×4 (08:08→22:07)
[2018-01-28] MEDS: Colchicine 0.6 MG TABLET PO SCH ×2 (08:11→11:29)
--- NOTE | 2018-01-28 08:56 | Internal Med Progress Note ---
Addendum entered and electronically signed by Stevan Griffin 01/28/18 14:35: Doxycycline for prophylaxis. Not drainage. Original Note: <Stevan Griffin - Last Filed: 01/28/18 13:13> Date of Encounter: 01/28/18 Time of Encounter: 06:55 - Assessment and plan (1) Sepsis Current Visit: Yes Status: Resolved Assessment and plan: Suspected sepsis - resolved. Pt BP is increasing today it is 133/57, reading last PM was 115/67. Pt is afebrile. WBC count of 16 (decreased from 19.8 yesterday. Possible due to steroids vs leukemoid rxn vs infxn). PipTazo/Vanc day 3. Continue abx as per ID. Morning cortisol ordered - thinking may have adrenal insufficiency due to prednisone taper from gout. Will monitor cortisol and check random cortisol again. Qualifiers: Sepsis type: sepsis due to unspecified organism Qualified Code(s): A41.9 - Sepsis, unspecified organism (2) Gout Current Visit: Yes Status: Resolved Assessment and plan: Pt given steroid shot yesterday for B/L big toe pain. Pt refused colchichine due to gastric side affect. pt says pain is much better. Will watch WBC count to see if demargination occurs of neutrophils. WBC today is 16 Qualifiers: Gout site: toe Gout etiology: unspecified cause Chronicity: unspecified Laterality: right Qualified Code(s): M10.9 - Gout, unspecified (3) Acute kidney injury Current Visit: Yes Status: Resolved Assessment and plan: Pt BUN of 58, down from 63 yesterday. Alteration Worker 1.60, up from 1.53 yesterday. Likely was hypovolemic prerenal failure in etiology. Will montior BUN/Alteration Worker, and check renal fxn in AM (4) Acute blood loss as cause of postoperative anemia Current Visit: Yes Status: Acute Assessment and plan: Hemoglobin today is 8.8 down from 9.4 Will ordr CBC for AM. FOBT negative. Ordered because BUN was increasing while Alteration Worker decreased. retroperitoneal and abd ultrasound are both WNL. (5) Femoral neck fracture Current Visit: Yes Status: Acute Assessment and plan: POD#4 s/p JOSE. Pt tolerated procedure well. Ortho wants to put on doxycycline for drainage. Okay with that since fecally excreted. Encourage pt to drink water to avoid pill induced esophagitis Qualifiers: Encounter type: subsequent encounter Fracture type: closed Laterality: right Fracture healing: with routine healing Qualified Code(s): S72.001D - Fracture of unspecified part of neck of right femur, subsequent encounter for closed fracture with routine healing (6) CHF (congestive heart failure) Current Visit: Yes Status: Chronic Assessment and plan: Toresemide is held, can think of restarting when BP is continuously stable. ECHO showed LVEDF of 50% Qualifiers: Heart failure type: diastolic Heart failure chronicity: chronic Qualified Code(s): I50.32 - Chronic diastolic (congestive) heart failure (7) CKD (chronic kidney disease), stage III Current Visit: Yes Status: Chronic Assessment and plan: Monitor BUN/Alteration Worker. (8) Diabetes mellitus Current Visit: Yes Status: Chronic Assessment and plan: Increase insulin Lispro from low to medium dose q6hr. Poorly controlled blood glucose. Qualifiers: Diabetes mellitus type: type 2 Diabetes mellitus penitentiary insulin use: with penitentiary use Diabetes mellitus complication status: with kidney complications Diabetes mellitus complication detail: with chronic kidney disease Chronic kidney disease stage: stage 3 (moderate) Qualified Code(s): E11.22 - Type 2 diabetes mellitus with diabetic chronic kidney disease; N18.3 - Chronic kidney disease, stage 3 (moderate); Z79.4 - group home (current) use of insulin (9) Leukocytosis Current Visit: Yes Status: Acute Assessment and plan: WBC count of 16 today, down from 19.8 ... leukemoid rxn vs neutrophilia from glucocorticoids vs infxn Qualifiers: Leukocytosis type: leukemoid reaction Qualified Code(s): D72.823 - Leukemoid reaction (10) DVT prophylaxis Current Visit: Yes Status: Acute Assessment and plan: Pt has compression device for legs (11) Afib Current Visit: Yes Status: Chronic Assessment and plan: Xarelto is held. No symptoms at this time Qualifiers: Atrial fibrillation type: paroxysmal Qualified Code(s): I48.0 - Paroxysmal atrial fibrillation - Time Spent With Patient Total time spent is greater than 50% in coordination of care (as documented) at patient's floor/unit and/or counseling patient: - Subjective Interval history: 62yo male is seen at bedside. He is here for right femur fx. He is POD#4 s/p total hip arthroplasty. He states that pain is very controlled, has no new complaints. Says that bilat big toes aren't in pain post steroid shot. Pt denies fever/chills/CP/SOB, n/v/d, dizziness, numbness, tingling. PTOT to try to get him to ambulate today. BP is doing much better - 133/57 this morning. He is tolerating diet. Waiting for FOBT studies to r/o UGIB since BUN is elevated while creatinine is decreasing. - Constitutional Vitals: Temp Pulse Resp BP Pulse Ox 97.6 F 66 14 133/57 96 01/28/18 07:38 01/28/18 07:38 01/28/18 07:38 01/28/18 07:38 01/28/18 07:38 General appearance: Present: cooperative, A&O X 3, obese - Head Head exam: Present: normal inspection - Neck Neck exam general surgery: Present: supple - Respiratory Respiratory exam: Present: CTAB - Cardiovascular Cardiovascular exam: Present: RRR, +S1, +S2 - GI/Abdominal GI/Abdominal exam: Present: normal bowel sounds, soft, no peritoneal signs. Absent: rebound, tenderness - Extremities Exam Extremities exam: Present: normal inspection - Incison Incision: Present: clean and dry, intact - Skin Skin exam: Present: intact Internal Medicine: Result - Labs CBC & Chem 7: 01/28/18 00:33 01/28/18 00:33 Labs: Short CBC 01/27/18 01/28/18 Range/Units 09:02 00:33 WBC 16.0 H (4.3-11.1) K/mcL Hgb 9.4 L 8.8 L (12.9-16.9) g/dL Hct 28.7 L 26.4 L (37.5-50.1) % Plt Count 168 (140-400) K/mcL Neutrophils # 14.3 H (1.6-8.9) K/mcL BMP 01/28/18 00:33 Sodium 128 L Potassium 4.5 Chloride 96 L Carbon Dioxide 24 BUN 58 H Creatinine 1.60 H Glucose 172 H Calcium 8.9 Liver Function 01/28/18 Range/Units 00:33 Total Bilirubin 1.4 H (0.3-1.0) mg/dL AST 25 (13-39) Units/L ALT 7 (7-52) Units/L Alkaline Phosphatase 127 H (34-104) Units/L Albumin 3.3 L (3.5-5.7) g/dL - ABG Interpretation ABG results: PT/INR, D-dimer PT 18.5 Seconds (9.4-12.1) H 01/24/18 06:41 - Impressions Impressions Abdomen Ultrasound 01/27/18 10:30 IMPRESSION: Unremarkable right upper quadrant ultrasound status post cholecystectomy. D/ / Keegan Peña MD / Keegan Peña MD Interpreting Provider: Keegan Peña MD Retroperitoneum Ultrasound 01/27/18 11:00 IMPRESSION: Unremarkable ultrasound of the kidneys and urinary bladder. D/ / 01/27/2018 11:15:51 Denzel Sanford MD / cheko Interpreting Provider: Denzel Sanford MD - VTE Documentation of Mechanical Device: Venous foot pump, device Consult Discharge Plan - Plan Referrals: NONE,PCP [Primary Care Provider] - Prescriptions: Doxycycline Hyclate 100 mg PO BID 10 Days #20 tablet <Isidra Paul - Last Filed: 01/28/18 19:20> Date of Encounter: 01/28/18 - Assessment and plan (1) Acute blood loss as cause of postoperative anemia Current Visit: Yes Status: Acute (2) Acute kidney injury Current Visit: Yes Status: Acute (3) Status post total hip replacement, right Current Visit: Yes Status: Acute - Time Spent With Patient Total time spent is greater than 50% in coordination of care (as documented) at patient's floor/unit and/or counseling patient: - Constitutional Vitals: Temp Pulse Resp BP Pulse Ox 97.9 F 61 16 132/74 99 01/28/18 16:18 01/28/18 16:18 01/28/18 16:18 01/28/18 16:18 01/28/18 16:18 Internal Medicine: Result - Labs CBC & Chem 7: 01/28/18 00:33 01/28/18 00:33 Labs: Short CBC 01/28/18 Range/Units 00:33 WBC 16.0 H (4.3-11.1) K/mcL Hgb 8.8 L (12.9-16.9) g/dL Hct 26.4 L (37.5-50.1) % Plt Count 168 (140-400) K/mcL Neutrophils # 14.3 H (1.6-8.9) K/mcL BMP 01/28/18 00:33 Sodium 128 L Potassium 4.5 Chloride 96 L Carbon Dioxide 24 BUN 58 H Creatinine 1.60 H Glucose 172 H Calcium 8.9 Liver Function 01/28/18 Range/Units 00:33 Total Bilirubin 1.4 H (0.3-1.0) mg/dL AST 25 (13-39) Units/L ALT 7 (7-52) Units/L Alkaline Phosphatase 127 H (34-104) Units/L Albumin 3.3 L (3.5-5.7) g/dL - ABG Interpretation ABG results: PT/INR, D-dimer PT 18.5 Seconds (9.4-12.1) H 01/24/18 06:41 - Attending Attestation I examined this patient and my medical decision-making was reviewed with the Resident Physician. I agree with the documented findings, disposition and treatment plan as described except to the extent set forth below.
--- NOTE | 2018-01-28 09:34 | Physician Discharge Referral ---
<Carmelita Wagner E - Last Filed: 01/28/18 09:45> ExtendedCare Referral Info Transfer To: [facility] - Diagnosis (1) Status post total hip replacement, right Priority: Primary Status: Acute (2) Femoral neck fracture Priority: Primary Status: Acute (3) CHF (congestive heart failure) Status: Chronic (4) CKD (chronic kidney disease), stage III Status: Chronic (5) Diabetes mellitus Status: Chronic (6) Gout Status: Resolved (7) Afib Status: Chronic Expected Duration of Placement: less than 30 days Prognosis: Good Aware of Diagnosis: Patient Aware of Prognosis: Patient - Transfer Medications Prescriptions: Doxycycline Hyclate 100 mg PO BID 10 Days #20 tablet Home Medications: Metoprolol XL (24 HR) Succ [Toprol XL] 50 mg PO BID 05/15/16 [History] Sertraline [Zoloft] 100 mg PO DAILY 05/15/16 [History] Torsemide [Demadex] 60 mg PO BID 05/15/16 [History] Cinnamon Bark [Cinnamon] 1,000 mg PO BID 10/23/17 [History] Melatonin 10 mg PO HS 10/23/17 [History] Rivaroxaban [Xarelto] 20 mg PO DAILY 10/23/17 [History] Tamsulosin [Flomax] 0.4 mg PO DAILY 10/23/17 [History] HYDROcodone/Acet 5/325 mg [[place] 5-325 mg] 1 tab PO Q6H 4 Days #14 tab 01/12/18 [Rx] Polyethylene Glycol 3350 [MiraLAX] 17 gm PO DAILY 01/21/18 [History] SitaGLIPtin [Januvia] 100 mg PO DAILY 01/21/18 [History] Aspirin [Adult Aspirin Regimen] 81 mg PO DAILY 01/22/18 [History] C/Sourcherry/Celery/Grape Seed [Tart [place] Capsule] 1 cap PO DAILY 01/22/18 [ History] Insulin ASPART [Novolog Flexpen] 2 unit SQ TIDWM 01/22/18 [History] Insulin Glargine,Hum.rec.anlog [Toujeo Solostar] 15 units SQ HS 01/22/18 [ History] Multivitamin [One Daily Essential] 1 tab PO DAILY 01/22/18 [History] Omeprazole/Sodium Bicarbonate [Zegerid 20 mg Capsule] 1 cap PO Q48H PRN [History] Potassium Chloride [Klor-Con 10] 10 meq PO BID 01/22/18 [History] Doxycycline Hyclate 100 mg PO BID 10 Days #20 tablet 01/28/18 [Rx] Allergies/Adverse Reactions: 3 Allergy/AdvReac Type Severity Reaction Status Date / Time tetanus toxoid, adsorbed Allergy Hives Verified 01/22/18 10:11 NSAIDS (Non-Steroidal AdvReac See Verified 01/22/18 10:38 Anti-Inflamma Comments - Respiratory Orders Smoking Cessation: Smoking cessation has been advised. For more information, call the [employer] Quit Line at 1-500-BXAE-NOW. - Ancillary Orders May use pressure relief devices daily prn, May go on CHICHI w/family/respon constitution party w /meds at nurse discretion PRN, May consult with Dentist, Crane Manager, Film Processing Supervisor PRN - Mobility Orders Chair, Ambulate - Rehabiliation Orders Rehab Potential: Good Rehab Orders: Evaluation for Physical Therapy, Evaluation for Occupational Therapy Other: Total Hip replacement Precautions Apply cold therapy 3-6x/day for 20 minutes at a time. Encourage ambulation throughout the day and incentive spirometer 10x/hour. Elevate affected extremity as tolerated. Brace: Wear hip abduction pillow when laying/sleeping - Treatments Skin tear care topically daily PRN per policy List/Other: Change dressing twice daily. Cleanse incision with each dressing change with soap and water and pat dry. Apply pressure dressin pack of 4 x 4 gauze, 1 or 2 ABD pads, and Medipore or coverall tape. Monitor for skin breakdown. - Diet Orders Regular CERTIFICATION: I certify that the transfer of the above named patient to an Extended Care Facility is necessary for the continuing treatment of the diagnosis listed. The above information is true and accurate reflection of patient's current condition. Confidential - Redisclosure prohibited without a patient's written consent. <Vladimir Louise - Last Filed: 01/29/18 06:32> - Respiratory Orders Smoking Cessation: Smoking cessation has been advised. For more information, call the [place] [employer] Quit Line at 5-854-LQGQ-NOW. CERTIFICATION: I certify that the transfer of the above named patient to an Extended Care Facility is necessary for the continuing treatment of the diagnosis listed. The above information is true and accurate reflection of patient's current condition. Confidential - Redisclosure prohibited without a patient's written consent.
--- NOTE | 2018-01-28 09:56 | Gastroenterology Consult Note ---
Date of Encounter: 01/28/18 Time of Encounter: 09:56 - Assessment and plan (1) Acute blood loss as cause of postoperative anemia Current Visit: Yes Status: Acute Assessment and plan: - H/H of 8.8/26.4, however has been decreasing since surgery - Hgb of 13.0 on admission - POD #4 from total right hip replacement - Anticoagulated on ASA, Xarelto for paroxysmal AFib at home, held prior to surgery - BUN also elevated at 58, increased from 29 on admission. Creatinine also increasing. This was discussed with pharmacy, and while steroids may increase BUN, this elevation is more than expected. - S/p 2 units after hip replacement. Low Hgb of 8.7 - No complaints of melena, hematochezia. Otherwise asymtomatic. - Stool occult negative. Plan - Suspect some aspect of post operative anemia with elevated BUN secondary to steroid use - Cannot rule out GI bleed and moderately high risk secondary to steroid use, AC use before surgery - Will monitor for now as it does not appear to be GI related. - Obtain labs to rule out hemolysis. LDH and reticulocyte count. Bilirubin noticed to be high and patient was reportedly jaundiced 2 days ago. Will discuss further plan with Dr. Yip, recommendations pending. (2) Acute kidney injury Current Visit: Yes Status: Acute Assessment and plan: - Acute kidney injury - Unclear etiology, possible secondary to medication as suspected by PCP combined with hypovolemia from surgery - BUN/Cr both elevated however BUN markedly increased from baseline. Further workup pending. - Noted to be hypotensive with possible adrenal insufficiency. ID consulted. - Further management per primary team (3) Status post total hip replacement, right Current Visit: Yes Status: Acute Assessment and plan: - Per primary and ortho teams - Time Spent With Patient Total time spent is greater than 50% in coordination of care (as documented) at patient's floor/unit and/or counseling patient: GI History of Present Illness - Data of Consult Patient: new to practice Consult date: 01/28/18 Requesting Physician: Pablito Cooney DO - Consult Narrative Reason for consult: Possible GI bleed History of present illness: Mr. Martinez is a 62 year old male with a past medical history of paroxysmal atrial fibrillation anticoagulated on Xarelto, CHF, CAD, diabetes, hypertension who presented to [facility] after fall and was found to have a right hip fracture. He is postoperative day #4 for robotically-assisted right total hip replacement. GI was consulted for concern of possible GI bleed after the procedure. He received 2 units packed red blood cells on 01/25 for postoperative hemoglobin of 8.7. BUN has been elevated since the surgery with peak in 60s. Patient was also notably given Solu-Cortef for postoperative possible adrenal insufficiency. Patient states his last colonoscopy was [address] Sherman and was normal per his report. Denies ever having an EGD. Reports previous NSAID use for joint pain however he was told by his PCP to stop this due to worsening kidney function 6 weeks ago. His PCP attributed this decrease to medications ( NSAID, metformin, lisinopril). During time of interview this morning, patient states he is asymptomatic and has no complaints of abdominal pain, nausea, vomiting. He is tolerating his diet well. Denies any hematochezia, melena and states his last bowel movement was this morning and normal for him. He does complain of fatigue however he attributes this to his recent surgery. He states that other than his hip he is near his baseline. Past Med Surg Social Fam HX - Past Medical History Medical history: atrial fibrillation, CHF, coronary artery disease, diabetes, hypertension Additional medical history: Gout, Pacemaker Psychiatric history: depression - Past Surgical History Surgical History: cataract, pacemaker/AICD, other Additional surgical history: R KNEE SCOPE, Cardiac ablation, Multiple heart caths - Social History Smoking Status: Never smoker Smokeless Tobacco Status: No Alcohol use: none Drug use: none - Family History Father Hx Family Cardiac Disorders: Yes Hx Family Cancer: Yes Hx Family Endocrine Disorder: Yes Sister Hx Family Cardiac Disorders: Yes Review of Systems: - Constitutional: Denies fevers, chills, weight loss, generalized fatigue - CVS: Denies chest pain, palpitations, MOREJON, orthopnea, edema, PND - Pulm: Denies SOB, cough, sputum, hematemesis, wheezing - GI: Denies abdominal pain, anorexia, nausea, vomiting, diarrhea, constipation , melena - Heme: Admits to ease of bleeding on anticoagulation. - MSK: Admits to right hip pain secondary to surgery. Denies joint pain, limited ROM - Skin: Denies rashes, ulcers, color changes, - Neuro: Denies PACHECO, paresthesias, focal deficits, ataxia, - Constitutional Vitals: Temp Pulse Resp BP Pulse Ox 97.6 F 66 14 133/57 96 01/28/18 07:38 01/28/18 07:38 01/28/18 07:38 01/28/18 07:38 01/28/18 07:38 Exam: Gen.: Vitals noted. No acute distress. AAOx3 HEENT: PERRL/EOMI, oropharynx clear, Normocephalic, atraumatic, MMM Cardiac: RRR, no murmur, +S1/S2 Pulmonary: CTA bilaterally, no wheezes, rales or rhonchi, equal chest expansion Abdomen: soft, nontender, BS noted, no guarding, no rebound. MSK: ROM intact, no joint swelling noted Extremities: no BLE edema, nontender calf, no cyanosis or clubbing Neuro: A&Ox3, moves all extremities, no focal deficits Psych: Appropriate mood and behavior Results - Labs CBC & Chem 7: 01/28/18 00:33 01/28/18 00:33 Labs: Last Result Calcium 8.9 mg/dL (8.6-10.3) 01/28/18 00:33 Entire Visit Hgb 8.8 g/dL (12.9-16.9) L 01/28/18 00:33 Hct 26.4 % (37.5-50.1) L 01/28/18 00:33 PT 18.5 Seconds (9.4-12.1) H 01/24/18 06:41 Total Bilirubin 1.4 mg/dL (0.3-1.0) H 01/28/18 00:33 AST 25 Units/L (13-39) 01/28/18 00:33 ALT 7 Units/L (7-52) 01/28/18 00:33 - ABG ABG results: PT/INR, D-dimer PT 18.5 Seconds (9.4-12.1) H 01/24/18 06:41 - Impressions Impressions Abdomen Ultrasound 01/27/18 10:30 IMPRESSION: Unremarkable right upper quadrant ultrasound status post cholecystectomy. D/ / Keegan Peña MD / Keegan Peña MD Interpreting Provider: Keegan Peña MD Retroperitoneum Ultrasound 01/27/18 11:00 IMPRESSION: Unremarkable ultrasound of the kidneys and urinary bladder. D/ / 01/27/2018 11:15:51 Denzel Sanford MD / cheko Interpreting Provider: Denzel Sanford MD Consult Discharge Plan - Plan Referrals: NONE,PCP [Primary Care Provider] - Prescriptions: Doxycycline Hyclate 100 mg PO BID 10 Days #20 tablet
--- NOTE | 2018-01-28 13:26 | Infectious Disease Consult ---
Date of Encounter: 01/28/18 Time of Encounter: 13:30 Assessment and Plan (1) Sepsis Status: Deleted Assessment and plan: Suspected sepsis resolved - Etiology unknown; possibly secondary to corticosteroid therapy versus infection - Met 2 out of 4 SIRS criteria; temperature of 101.1 on 01/24 and leukocytosis - Vital signs are currently within normal limits - White count 16, down from 19.8 - 2 sets of blood cultures were ordered on 01/25; currently pending - Currently on vancomycin and Zosyn, day 3 - Procalcitonin, ESR, CRP, and peripheral smear ordered Qualifiers: Sepsis type: sepsis due to unspecified organism Qualified Code(s): A41.9 - Sepsis, unspecified organism (2) Leukocytosis Status: Acute Assessment and plan: Likely secondary to neutrophilia from glucocorticoid therapy - WBC count of 16 today, down from 19.8 - Patients white count reached a high of 27.3 on 01/26 Qualifiers: Leukocytosis type: leukemoid reaction Qualified Code(s): D72.823 - Leukemoid reaction (3) Acute kidney injury Status: Resolved Assessment and plan: - Patient has developed PING, possibly secondary to hypovolemic prerenal failure - Creatinine is 1.6 today, up from 1.53 yesterday - Repeat a.m. labs; management per primary team (4) Acute blood loss as cause of postoperative anemia Status: Acute Assessment and plan: Patient experienced a drop in hemoglobin; 0.8 from 9.4 - FOBT has been ordered - Retroperitoneal and abdominal ultrasound are both within normal limits - GI has been consulted (5) Femoral neck fracture Status: Acute Assessment and plan: POD#4 s/p JOSE - Pt tolerated procedure well - Patient is postop day 4 status post total hip replacement - He denies any pain in the area - There is no erythema or swelling in the surrounding region Qualifiers: Encounter type: subsequent encounter Fracture type: closed Laterality: right Fracture healing: with routine healing Qualified Code(s): S72.001D - Fracture of unspecified part of neck of right femur, subsequent encounter for closed fracture with routine healing (6) Gout Status: Resolved Assessment and plan: Pt given steroid shot yesterday for B/L big toe pain Pt refused colchichine due to gastric side affect. pt says pain is much better Will watch WBC count to see if demargination occurs of neutrophils WBC today is 16 Qualifiers: Gout site: toe Gout etiology: unspecified cause Chronicity: unspecified Laterality: right Qualified Code(s): M10.9 - Gout, unspecified Infectious Disease HPI - Data of Consult Requesting Physician: Pablito Cooney DO Primary Care Provider: PCP NONE - Consult Narrative Reason for consult: Possible sepsis History of present illness: Patient is a 62-year-old male who presented to [facility] ED on 01/21/18 as a transfer from [place] after he was found to have an acute fracture of the right femoral neck after a mechanical fall. We are consulted on 01/28 for management of possible sepsis. Patient has a past medical history of paroxysmal atrial fibrillation; anticoagulated on Xarelto, CHF, CAD, diabetes, hypertension who initially presented after suffering a mechanical fall when he tripped and fell over a cord. He had fallen approximately 9 days prior to presentation, and reported that his pain grew gradually worse. Orthopedics was consulted from the emergency department at [place]. At that time, per chart review, patient denied having any dizziness, chest pain, shortness of breath, visual disturbances, fever, or chills. Patient had swelling in his lower extremitity. Upon presentation, patients vital signs were as follows: Temperature was 98.1, pulse was 62, respiratory rate was 20, blood pressure was 147/81, and pulse ox is 95. Patient was found to have leukocytosis; first reading was 18.7. Patient was seen by orthopedics, and underwent total hip replacement on 01/24/18. Initially, patient tolerated the procedure well, but on 01/26/18, patient developed an episode of hypotension. Pulmonology was consulted. Per chart review, pulmonology stated that patients hypotension is most likely due to postop inflammatory response with capillary leak. He was given a 5% albumin challenge. Patient has had persistent leukocytosis throughout his stay. Patient was random cortisol level was less than 5. Once 01/24, patient was noted to have a significant drop in his hemoglobin from 13.0-10.6. Patients hemoglobin has been slowly decreasing since then. Fecal occult blood test has been ordered to rule out a GI bleed. Retroperitoneal ultrasound was within normal limits. GI has been consulted; currently managing. Patient was seen and examined at bedside this afternoon. He reports that he is feeling well today. Denies having any nausea, vomiting, fevers, chills, shortness of breath, pain, or swelling near his surgical site. Area is currently bandaged. Patient reports that he has felt reasonably well since his admission. He reports that he has some pain in his toes secondary to his gout. Otherwise asymptomatic. CC: Pablito Cooney, DO Past Med Surg Social Fam HX - Past Medical History Medical history: atrial fibrillation, CHF, coronary artery disease, diabetes, hypertension Additional medical history: Gout, Pacemaker Psychiatric history: depression - Past Surgical History Surgical History: cataract, pacemaker/AICD, other Additional surgical history: R KNEE SCOPE, Cardiac ablation, Multiple heart caths - Social History Smoking Status: Never smoker Smokeless Tobacco Status: No Alcohol use: none Drug use: none - Family History Father Hx Family Cardiac Disorders: Yes Hx Family Cancer: Yes Hx Family Endocrine Disorder: Yes Sister Hx Family Cardiac Disorders: Yes Infectious Disease-CN:Meds Metoprolol XL (24 HR) Succ [Toprol XL] 50 mg PO BID 05/15/16 [History] Sertraline [Zoloft] 100 mg PO DAILY 05/15/16 [History] Torsemide [Demadex] 60 mg PO BID 05/15/16 [History] Cinnamon Bark [Cinnamon] 1,000 mg PO BID 10/23/17 [History] Melatonin 10 mg PO HS 10/23/17 [History] Rivaroxaban [Xarelto] 20 mg PO DAILY 10/23/17 [History] Tamsulosin [Flomax] 0.4 mg PO DAILY 10/23/17 [History] HYDROcodone/Acet 5/325 mg [[place] 5-325 mg] 1 tab PO Q6H 4 Days #14 tab 01/12/18 [Rx] Polyethylene Glycol 3350 [MiraLAX] 17 gm PO DAILY 01/21/18 [History] SitaGLIPtin [Januvia] 100 mg PO DAILY 01/21/18 [History] Aspirin [Adult Aspirin Regimen] 81 mg PO DAILY 01/22/18 [History] C/Sourcherry/Celery/Grape Seed [Tart [place] Capsule] 1 cap PO DAILY 01/22/18 [ History] Insulin ASPART [Novolog Flexpen] 2 unit SQ TIDWM 01/22/18 [History] Insulin Glargine,Hum.rec.anlog [Touclive Solostar] 15 units SQ HS 01/22/18 [ History] Multivitamin [One Daily Essential] 1 tab PO DAILY 01/22/18 [History] Omeprazole/Sodium Bicarbonate [Zegerid 20 mg Capsule] 1 cap PO Q48H PRN [History] Potassium Chloride [Klor-Con 10] 10 meq PO BID 01/22/18 [History] Doxycycline Hyclate 100 mg PO BID 10 Days #20 tablet 01/28/18 [Rx] 3 Allergy/AdvReac Type Severity Reaction Status Date / Time tetanus toxoid, adsorbed Allergy Hives Verified 01/22/18 10:11 NSAIDS (Non-Steroidal AdvReac See Verified 01/22/18 10:38 Anti-Inflamma Comments Review of systems: 10 point ROS done, negative other for what's mentioned in the HPI - Constitutional Constitutional: Absent: chills, lethargy, weakness, weight loss - Cardiovascular Cardiovascular: Absent: chest pain, palpitations, rapid heart rate, slow heart rate, syncope - Respiratory Respiratory: Absent: dyspnea, wheezing, snoring, stridor - Musculoskeletal Musculoskeletal: Absent: arthralgias, tingling Exam - Constitutional Vitals: Temp Pulse Resp BP Pulse Ox 97.9 F 63 16 118/69 96 01/28/18 11:38 01/28/18 11:38 01/28/18 11:38 01/28/18 11:38 01/28/18 11:38 - Head Head exam: Present: atraumatic, normocephalic - Eye Eye exam: Present: EOMI, PERRL, sclera anicteric - ENT ENT exam: Present: mucous membranes dry Additional comments: no oral lesions - Neck Neck exam: Present: full ROM. Absent: meningismus - Respiratory Respiratory exam: Present: CTAB. Absent: accessory muscle use, chest wall tenderness, rhonchi, tachypnea - Cardiovascular Cardiovascular exam: Present: RRR, +S1, +S2. Absent: bradycardia, systolic murmur, tachycardia - GI/Abdominal GI/Abdominal exam: Present: soft. Absent: tenderness - Extremities Exam Additional comments: R Hip is currently dressed and wrapped; no erythema or swelling - Back Exam Back exam: Absent: CVA tenderness (L), CVA tenderness (R) - Neurological Exam Neurological exam: Present: oriented X3 - Psychiatric Psychiatric exam: Present: normal affect, normal mood - Skin Skin exam: Present: normal color. Absent: rash Infectious Disease CN: Results - Labs CBC & Chem 7: 01/31/18 01:34 01/31/18 01:34 Cultures: Cultures 01/26/18 05:36 Urine Culture - Final Urine,Clean Catch No significant growth. 01/25/18 19:53 Blood Culture - Preliminary Peripheral Venipuncture Culture is incubating and being continuously monitored for growth. Final report to follow. 01/25/18 19:53 Blood Culture - Preliminary Peripheral Venipuncture Culture is incubating and being continuously monitored for growth. Final report to follow. 01/21/18 21:05 Urine Culture - Final Urine,Clean Catch Culture is grossly mixed, unable to properly interpret. Please repeat if indicated. Serology: Serology 01/28/18 01/26/18 01/26/18 Range/Units 09:00 12:25 12:25 Urine Color (Yellow) Urine Clarity (Clear) Urine pH (5.0-8.0) pH Units Ur Specific [place] (1.010-1.025) Urine Protein (Neg-Trace) mg/dL Urine Glucose (UA) (Normal) mg/dL Urine Ketones (Negative) mg/dL Urine Blood (Negative) Urine Nitrite (Negative) Urine Bilirubin (Negative) Urine Urobilinogen (Normal) mg/dL Ur Leukocyte Esterase (Negative) Urine Microscopic RBC (0-3) per hpf Urine Microscopic WBC (0-3) per hpf Ur Squamous Epith Cells (None-Few) per lpf Urine Bacteria (None-Few) per hpf Hyaline Casts (None-Few) per lpf Ur Culture Indicated? (NO) Urine Creatinine 54 mg/dL Protein/Creatinin Ratio 0.24 H (0.00-0.20) mg/mg Urine Urea Nitrogen 575 mg/dL Urine Total Protein 13 (1-14) mg/dL Stool Occult Blood Negative (Negative) 01/21/18 Range/Units 21:05 Urine Color Yellow (Yellow) Urine Clarity Cloudy A (Clear) Urine pH 6.0 (5.0-8.0) pH Units Ur Specific [place] 1.015 (1.010-1.025) Urine Protein Negative (Neg-Trace) mg/dL Urine Glucose (UA) Normal (Normal) mg/dL Urine Ketones Negative (Negative) mg/dL Urine Blood Negative (Negative) Urine Nitrite Negative (Negative) Urine Bilirubin Negative (Negative) Urine Urobilinogen Normal (Normal) mg/dL Ur Leukocyte Esterase Moderate H (Negative) Urine Microscopic RBC 0-3 (0-3) per hpf Urine Microscopic WBC 15-30 H (0-3) per hpf Ur Squamous Epith Cells Moderate H (None-Few) per lpf Urine Bacteria Many H (None-Few) per hpf Hyaline Casts None Seen (None-Few) per lpf Ur Culture Indicated? YES A (NO) Urine Creatinine mg/dL Protein/Creatinin Ratio (0.00-0.20) mg/mg Urine Urea Nitrogen mg/dL Urine Total Protein (1-14) mg/dL Stool Occult Blood (Negative) - VTE Documentation of Mechanical Device: Venous foot pump, device Consult Discharge Plan - Plan Referrals: NONE,PCP [Primary Care Provider] - Prescriptions: Doxycycline Hyclate 100 mg PO BID 10 Days #20 tablet - Attending Attestation I examined this patient and my medical decision-making was reviewed with the Resident Physician. I agree with the documented findings, disposition and treatment plan as described except to the extent set forth below. This is an addendum to original report dictated by resident physician. Please refer to residents note for full detail. Patient is a 62-year-old gentleman with past medical history mentioned below including coronary artery disease, A. fib with RVR, diabetes mellitus type 2, chronic kidney disease stage III and gout that is recurrent. Patient tells me he gets the gout about 3-4 times a year where he needs to take tapering dose of steroids. Patient was admitted on 01/21/18 for femoral neck fracture status post fall 9 days prior. On 01/24/18 patient underwent a right total hip replacement with robotic-assisted by Dr. Louise. During the hospital stay, patient had fever of 101.1 Fahrenheit on 01/24/18 which was right after the procedure patients WBC also start creeping upwards from 14.7 on 01/23 to 27.3 on 01/26. During that time he had neutrophilic predominance with about 85-90% neutrophils no bands. Patients kidney function got worse as well and creatinine jumped from 1.22 on admission and peaked at 1.84 on January 26. Patients bilirubin also increased to 3.1 with normal AST ALT and alkaline phosphatase. Urine culture on 01/21 blood cultures on 01/25 and repeat urine culture on 01/26 all were negative with no growth. During that time patient had a chest x-ray which revealed no acute process. Abdominal ultrasound of the right upper quadrant was unremarkable. An ultrasound of the kidney and urinary bladder was also unremarkable. Patient was started on vancomycin and Zosyn on 01/25/18. Currently patient laying in bed appears comfortable his review of system is really unremarkable other for than some dry heaves that he had yesterday. No headache nosinus pressure no runny nose no sore throat. No chest pain or shortness of breath no cough no sputum production. No abdominal pain no diarrhea. No urinary symptoms. He has some serous drainage from his wound yesterday. I'm not sure what's causing the patient's clinical picture I'm concerned for the low cortisol level and elevated bilirubin and acute kidney injury based on physicial exam and ROS, patient does not appear to have an infectious etiology NO URI symptoms, CXR clear, abdominnal exam and U/S unremarkable, no urinary symptoms. discussed at length with Dr. Paul. will order a battery of tests get CT abdomen and CT hip to rule out hematoma if CT's are non revealing, d/c vancomycin check hepatitis b and C serology
[2018-01-28 17:07] LABS: Immature Reticulocyte % 35.6 % (11.0-38.0); Retculocyte # 0.12 M/mcL (0.05-0.10); Reticulocyte % 3.7 % (1.6-2.8)
--- NOTE | 2018-01-28 18:03 | Event Note ---
Date of Encounter: 01/28/18 Time of Encounter: 13:15 PCR- POD#4 status post right total hip robotic 01/24 Dr. Louise PCR - Patient seen at bedside. Alert and oriented 3 Labwork and medications reviewed. 01/25: Hemoglobin 8.7 - patient receiving 2 units PRBCs 01/26: H/H 9.1/26.4 01/27: H/H 9.4/28.7 01/28: H/H 8.8/26.4 Vital signs reviewed - improved blood pressure - being monitored by hospitalist team. Pain control: Adequate. Patient complains of muscle spasms. Patient's electrolytes continue to be imbalanced - patient states he takes supplements at home to help with spasms. Suspect at this point likely related to his electrolyte imbalances. Hospitalist team aware of hyponatremia. Participating in PT. All questions and concerns addressed. Educated on use of incentive spirometer, ambulation, and hydration. Patient educated on post-operative restrictions and care. Addressed: see above. Patient had abdominal and retroperitoneal ultrasounds 01/27 which are documented unremarkable. D/C plan: Per hospitalist. ECF once medically stable and auth obtained. Rut Nicolas per - awaiting auth. Likely Wednesday clearance from Hospitalist team.
[2018-01-28] MEDS: Insulin DETEMIR 100 UNIT/ML X5UNITS SQ SCH (22:08)
[2018-01-28] MEDS: Melatonin 3 MG TABLET PO SCH (22:08)
[2018-01-28] MEDS: *HR* OxyCODONE/APAP 5/325 TABLET PO PRN (23:57)
[2018-01-29 03:50] LABS: Basophils % 0.1 %; Hematocrit 27.9 % (37.5-50.1); Hemoglobin 9.2 g/dL (12.9-16.9); Immature Granulocytes % 1.3 % (0-4); Lymphocytes # 0.6 K/mcL (0.6-4.6); Lymphocytes % 3.2 %; Mean Corpuscular Hemoglobin 28.8 pg (28.0-33.3); Mean Corpuscular Volume 87.2 fL (83.0-100.0); Monocytes # 0.8 K/mcL (0.0-1.3); Monocytes % 4.4 %; Neutrophils # 17.2 K/mcL (1.6-8.9); Platelet Count 196 K/mcL (140-400); Red Cell Distribution Width 15.6 % (11.5-14.5)
[2018-01-29 04:14] LABS: Alanine Aminotransferase 11 Units/L (7-52); Albumin 3.5 g/dL (3.5-5.7); Albumin/Globulin Ratio 1.3 (1.1-2.2); Alkaline Phosphatase 135 Units/L (34-104); Aspartate Amino Transferase 23 Units/L (13-39); BUN/Creatinine Ratio 34 (6-26); Bilirubin,Total 1.5 mg/dL (0.3-1.0); Blood Urea Nitrogen 46 mg/dL (8-23); Calcium 9.1 mg/dL (8.6-10.3); Carbon Dioxide 21 mEq/L (23-29); Chloride 97 mEq/L (98-107); Globulin 2.7 g/dL (2.4-3.5); Glucose 213 mg/dL (70-105); Osmolality,Calculated 288 (280-300); Potassium 4.4 mEq/L (3.5-5.1); Sodium 130 mEq/L (136-145); Total Protein 6.2 g/dL (6.4-8.9); eGFR For African Americans > 60 (> 60); eGFR For Non-African Americans 53 (> 60)
--- NOTE | 2018-01-29 06:33 | Orthopedics Progress Note ---
Date of Encounter: 01/29/18 Time of Encounter: 06:32 Subjective Principal diagnosis: Status post right total hip arthroplasty Interval history: Patient was seen this morning doing well without complaints. Afebrile vital signs stable. Operative extremity: Neurovascularly intact Dressing clean dry and intact Calves nontender Assessment and plan: Continue with postoperative care Patient with pale drainage overnight dressing clean dry and intact right now. Discharge planning as per hospitalist Objective Vital signs: Vital Signs Temp Pulse Resp BP Pulse Ox 01/29/18 06:28 97.6 F 63 16 141/70 97 01/29/18 04:12 98.0 F 61 14 132/69 99 01/29/18 00:38 98.0 F 59 16 117/66 97 01/28/18 16:18 97.9 F 61 16 132/74 99 01/28/18 11:38 97.9 F 63 16 118/69 96 01/28/18 08:08 96 01/28/18 07:38 97.6 F 66 14 133/57 96 Intake and Output 01/28/18 01/28/18 01/29/18 15:59 23:59 07:59 Intake Total 700 / 700 100 / 100 600 / 600 Output Total 550 / 550 200 / 200 Balance 150 / 150 100 / 100 400 / 400 Intake: IV Fluids 100 / 100 100 / 100 Zosyn 3.375 GM In 0.9 % Sodium 100 / 100 100 / 100 Chloride (Mini-Bag +) 100 ML @ 25 mls/hr IVPB Q8HR [facility] Rx#: [id number] Oral 600 / 600 600 / 600 Output: Urine 550 / 550 200 / 200 Other: Meal Lunch Dinner Percent of Meal Consumed 90% 100% Stool Size Small Stool Consistency formed Stool Color Brown # Bowel Movements 1 Blood Glucose* 262 220 - Labs CBC & BMP: 01/29/18 03:14 01/29/18 03:14 Labs: Abnormal lab results WBC 18.9 K/mcL (4.3-11.1) H 01/29/18 03:14 RBC 3.20 M/mcL (4.19-5.50) L 01/29/18 03:14 Hgb 9.2 g/dL (12.9-16.9) L 01/29/18 03:14 Hct 27.9 % (37.5-50.1) L 01/29/18 03:14 RDW 15.6 % (11.5-14.5) H 01/29/18 03:14 Reticulocyte # 0.12 M/mcL (0.05-0.10) H 01/28/18 16:54 Neutrophils # 17.2 K/mcL (1.6-8.9) H 01/29/18 03:14 Toxic Granulation Present (Not Present) A 01/26/18 00:21 ESR 47 mm/hr (0-10) H 01/29/18 03:14 Percent Retic 3.7 % (1.6-2.8) H 01/28/18 16:54 PT 18.5 Seconds (9.4-12.1) H 01/24/18 06:41 Sodium 130 mEq/L (136-145) L 01/29/18 03:14 Chloride 97 mEq/L (98-107) L 01/29/18 03:14 Carbon Dioxide 21 mEq/L (23-29) L 01/29/18 03:14 BUN 46 mg/dL (8-23) H 01/29/18 03:14 Creatinine 1.36 mg/dL (0.70-1.30) H 01/29/18 03:14 Est GFR (Non-Af Amer) 53 (> 60) L 01/29/18 03:14 BUN/Creatinine Ratio 34 (6-26) H 01/29/18 03:14 Glucose 213 mg/dL (70-105) H 01/29/18 03:14 POC Glucose 178 mg/dL (70-99) H 01/27/18 19:50 Uric Acid 7.7 mg/dL (2.3-7.6) H 01/27/18 12:21 Total Bilirubin 1.5 mg/dL (0.3-1.0) H 01/29/18 03:14 Direct Bilirubin 0.9 mg/dL (0.0-0.2) H 01/26/18 08:27 Alkaline Phosphatase 135 Units/L (34-104) H 01/29/18 03:14 C-Reactive Protein 54 mg/L (Less than 10) H 01/29/18 03:14 B-Natriuretic Peptide 146 pg/mL (Less than 100) H 01/25/18 22:55 Serum Total Protein 6.2 g/dL (6.4-8.9) L 01/29/18 03:14 Urine Clarity Cloudy (Clear) A 01/21/18 21:05 Ur Leukocyte Esterase Moderate (Negative) H 01/21/18 21:05 Urine Microscopic WBC 15-30 per hpf (0-3) H 01/21/18 21:05 Ur Squamous Epith Cells Moderate per lpf (None-Few) H 01/21/18 21:05 Urine Bacteria Many per hpf (None-Few) H 01/21/18 21:05 Ur Culture Indicated? YES (NO) A 01/21/18 21:05 Protein/Creatinin Ratio 0.24 mg/mg (0.00-0.20) H 01/26/18 12:25 Vancomycin Trough 15 mcg/mL (5-10) H 01/28/18 06:40 - VTE Documentation of Mechanical Device: Venous foot pump, device Consult Discharge Plan - Plan Referrals: NONE,PCP [Primary Care Provider] - Prescriptions: Doxycycline Hyclate 100 mg PO BID 10 Days #20 tablet
[2018-01-29] MEDS ORDERED: Aminoglycoside Consult 1 EACH MC ONE (07:26)
[2018-01-29] MEDS: Piperacillin/Tazobactam 3.375 GM in 0.9 % Sodium Chloride Mini Bag 100 ML IVPB SCH ×2 (08:23→17:04)
[2018-01-29] MEDS: Colchicine 0.6 MG TABLET PO SCH (08:24)
[2018-01-29] MEDS: Ascorbic Acid 500 MG TABLET PO SCH ×2 (08:24→17:02)
[2018-01-29] MEDS: Multivit/Ca/Min/Fe/FA 1 TAB TABLET PO SCH (08:24)
[2018-01-29] MEDS: Hydrocortisone Sodium Succ 100 MG/2 ML VIAL IVP SCH ×2 (08:25→17:03)
[2018-01-29] MEDS: Insulin LISPRO 300 UNITS/3 ML VIAL SQ SCH ×4 (08:25→20:02)
--- NOTE | 2018-01-29 09:26 | Internal Med Progress Note ---
<Stevan Griffin S - Last Filed: 01/29/18 10:01> Date of Encounter: 01/29/18 Time of Encounter: 08:50 - Assessment and plan (1) Sepsis Current Visit: Yes Status: Resolved Assessment and plan: Suspected sepsis - resolved. Pt BP is increasing today it is 140's.. Pt is afebrile. WBC count of 18.9 (Possible due to steroids vs leukemoid rxn vs infxn) . PipTazo/Vanc day 4. Continue abx as per ID. Morning cortisol ordered - thinking may have adrenal insufficiency due to prednisone taper from gout. Will monitor cortisol and check random cortisol again. Will taper pt. 100mg steroid yesterday, today hydrocortisone 50mg q8hr. Will monitor vitals Qualifiers: Sepsis type: sepsis due to unspecified organism Qualified Code(s): A41.9 - Sepsis, unspecified organism (2) Acute blood loss as cause of postoperative anemia Current Visit: Yes Status: Acute Assessment and plan: Hemoglobin today is 9.2 today. Will ordr CBC for AM. FOBT negative. retroperitoneal and abd ultrasound are both WNL. CT hip showed no hematoma (3) Acute kidney injury Current Visit: Yes Status: Acute Assessment and plan: Improving. BUN 46 today. 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 Will continue to monitor renal fxn (4) Status post total hip replacement, right Current Visit: Yes Status: Acute Assessment and plan: POD #5. Pt tolerated procedure well. PTOT to continue to attempt to ambulate. Incision is clean and intact. (5) CHF (congestive heart failure) Current Visit: Yes Status: Chronic Assessment and plan: Toresemide is held,. ECHO showed LVEDF of 50% Qualifiers: Heart failure type: diastolic Heart failure chronicity: chronic Qualified Code(s): I50.32 - Chronic diastolic (congestive) heart failure (6) CKD (chronic kidney disease), stage III Current Visit: Yes Status: Chronic Assessment and plan: Monitor BUN/Gettering Filament Machine Operator. (7) Diabetes mellitus Current Visit: Yes Status: Chronic Assessment and plan: Increase insulin Lispro from low to medium dose q6hr. Poorly controlled blood glucose. 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 leukemoid rxn vs neutrophilia from glucocorticoids vs infxn Qualifiers: Leukocytosis type: leukemoid reaction Qualified Code(s): D72.823 - Leukemoid reaction (9) Gout Current Visit: Yes Status: Resolved Assessment and plan: Pt given steroid shot yesterday for B/L big toe pain. Pt refused colchichine due to gastric side affect. pt c/o pain again today. Will discuss tx options with pt, thinking about probenacid since pt is most likely undersecreter 2/2 CKD. Qualifiers: Gout site: toe Gout etiology: unspecified cause Chronicity: unspecified Laterality: right Qualified Code(s): M10.9 - Gout, unspecified (10) DVT prophylaxis Current Visit: Yes Status: Acute Assessment and plan: Pt has compression device for legs (11) Edema Current Visit: Yes Status: Acute Assessment and plan: Hold torosemide. Started spironolactone for cardioprotective effects and no KELLY of gout flare up. Will monitor potassium and eduacate pt about potassium side affects of spironolactone. Qualifiers: Edema type: unspecified Qualified Code(s): R60.9 - Edema, unspecified - Time Spent With Patient Total time spent is greater than 50% in coordination of care (as documented) at patient's floor/unit and/or counseling patient: - Subjective Interval history: 62yo male is seen at bedside. He is here for right femur fx. He is POD#5 s/p total hip arthroplasty. He states that pain is very controlled, has no new complaints. Says that bilat big toes are in pain again, will discuss tx options other than steroids with pt. Pt denies fever/chills/CP/SOB, n/v/d, dizziness, numbness, tingling. PTOT ambulated yesterday to side of bed, working on getting up with walker today BP much better in the 140's today. Pt c/o feeling full of fluid, discussed spironolactone tx and will order PO 1x daily for pt, continue to hold torosemide. FOBT negative. Pt hemoglobin 9.2 today, CT was negative for hematoma but showed posisble cellulitis . - Constitutional Vitals: Temp Pulse Resp BP Pulse Ox 97.6 F 63 16 141/70 97 01/29/18 06:28 01/29/18 06:28 01/29/18 06:28 01/29/18 06:28 01/29/18 09:04 General appearance: Present: cooperative, A&O X 3, obese - Head Head exam: Present: atraumatic, normal inspection - Neck Neck exam general surgery: Present: supple - Respiratory Respiratory exam: Present: CTAB - Cardiovascular Cardiovascular exam: Present: RRR, +S1, +S2 - GI/Abdominal GI/Abdominal exam: Present: normal bowel sounds, soft, no peritoneal signs - Incison Incision: Present: clean and dry, intact - Neurological Exam Neurological exam: Present: oriented X3, no focal deficits - Psychiatric Psychiatric exam: Present: normal mood - Skin Additional comments: b/l LE edema Internal Medicine: Result - Labs CBC & Chem 7: 01/29/18 03:14 01/29/18 03:14 Labs: Short CBC 01/29/18 Range/Units 03:14 WBC 18.9 H (4.3-11.1) K/mcL Hgb 9.2 L (12.9-16.9) g/dL Hct 27.9 L (37.5-50.1) % Plt Count 196 (140-400) K/mcL Neutrophils # 17.2 H (1.6-8.9) K/mcL BMP 01/29/18 03:14 Sodium 130 L Potassium 4.4 Chloride 97 L Carbon Dioxide 21 L BUN 46 H Creatinine 1.36 H Glucose 213 H Calcium 9.1 Liver Function 01/29/18 Range/Units 03:14 Total Bilirubin 1.5 H (0.3-1.0) mg/dL AST 23 (13-39) Units/L ALT 11 (7-52) Units/L Alkaline Phosphatase 135 H (34-104) Units/L Albumin 3.5 (3.5-5.7) g/dL - ABG Interpretation ABG results: PT/INR, D-dimer PT 18.5 Seconds (9.4-12.1) H 01/24/18 06:41 - Impressions Impressions Abdomen/Pelvis CT 01/28/18 16:10 IMPRESSION: Evidence of recent right hip arthroplasty. There is no significant postoperative fluid collection/hematoma. Diffuse soft tissue edema consistent with anasarca. Small amount of free fluid in the abdomen and pelvis. D/ / Carlos A Lerma MD / Carlos A Lerma MD Interpreting Provider: Carlos A Lerma MD Hip CT 01/28/18 16:10 IMPRESSION: 1. Status post right total hip arthroplasty with subcutaneous gas seen tracking along the right gluteus minimus and medius muscles and tensor fascia sophie. Findings likely reflect postsurgical gas given recent hip replacement. No organized drainable fluid collection identified. No discrete hematoma evident. 2. Nonspecific subcutaneous edema throughout the soft tissues with scrotal edema and small bilateral hydroceles also noted. Findings may reflect anasarca. Correlate clinically to exclude cellulitis. 3. Atherosclerotic disease. D/ / Ian Rod MD / Ian Rod MD Interpreting Provider: Ian Rod MD - VTE Documentation of Mechanical Device: Venous foot pump, device Consult Discharge Plan - Plan Referrals: NONE,PCP [Primary Care Provider] - Prescriptions: Doxycycline Hyclate 100 mg PO BID 10 Days #20 tablet <Isidra Paul - Last Filed: 01/29/18 15:01> Date of Encounter: 01/29/18 - Assessment and plan (1) CHF (congestive heart failure) Current Visit: Yes Status: Chronic Qualifiers: Heart failure type: diastolic Heart failure chronicity: chronic Qualified Code(s): I50.32 - Chronic diastolic (congestive) heart failure (2) CKD (chronic kidney disease), stage III Current Visit: Yes Status: Chronic (3) Diabetes mellitus Current Visit: Yes Status: Chronic Qualifiers: Diabetes mellitus type: type 2 Diabetes mellitus assisted insulin use: with assisted use Diabetes mellitus complication status: with kidney complications Diabetes mellitus complication detail: with chronic kidney disease Chronic kidney disease stage: stage 3 (moderate) Qualified Code(s): E11.22 - Type 2 diabetes mellitus with diabetic chronic kidney disease; N18.3 - Chronic kidney disease, stage 3 (moderate); Z79.4 - senior care (current) use of insulin (4) Leukocytosis Current Visit: Yes Status: Acute Qualifiers: Leukocytosis type: leukemoid reaction Qualified Code(s): D72.823 - Leukemoid reaction (5) Gout Current Visit: Yes Status: Resolved Qualifiers: Gout site: toe Gout etiology: unspecified cause Chronicity: unspecified Laterality: right Qualified Code(s): M10.9 - Gout, unspecified (6) DVT prophylaxis Current Visit: Yes Status: Acute (7) Acute blood loss as cause of postoperative anemia Current Visit: Yes Status: Acute (8) Sepsis Current Visit: Yes Status: Resolved Qualifiers: Sepsis type: sepsis due to unspecified organism Qualified Code(s): A41.9 - Sepsis, unspecified organism (9) Acute kidney injury Current Visit: Yes Status: Acute (10) Status post total hip replacement, right Current Visit: Yes Status: Acute (11) Edema Current Visit: Yes Status: Acute Qualifiers: Edema type: unspecified Qualified Code(s): R60.9 - Edema, unspecified - Time Spent With Patient Total time spent is greater than 50% in coordination of care (as documented) at patient's floor/unit and/or counseling patient: - Constitutional Vitals: Temp Pulse Resp BP Pulse Ox 97.6 F 82 19 139/54 96 01/29/18 06:28 01/29/18 11:19 01/29/18 11:19 01/29/18 11:19 01/29/18 11:19 Internal Medicine: Result - Labs CBC & Chem 7: 01/29/18 03:14 01/29/18 03:14 Labs: Short CBC 01/29/18 Range/Units 03:14 WBC 18.9 H (4.3-11.1) K/mcL Hgb 9.2 L (12.9-16.9) g/dL Hct 27.9 L (37.5-50.1) % Plt Count 196 (140-400) K/mcL Neutrophils # 17.2 H (1.6-8.9) K/mcL BMP 01/29/18 03:14 Sodium 130 L Potassium 4.4 Chloride 97 L Carbon Dioxide 21 L BUN 46 H Creatinine 1.36 H Glucose 213 H Calcium 9.1 Liver Function 01/29/18 Range/Units 03:14 Total Bilirubin 1.5 H (0.3-1.0) mg/dL AST 23 (13-39) Units/L ALT 11 (7-52) Units/L Alkaline Phosphatase 135 H (34-104) Units/L Albumin 3.5 (3.5-5.7) g/dL - ABG Interpretation ABG results: PT/INR, D-dimer PT 18.5 Seconds (9.4-12.1) H 01/24/18 06:41 - Impressions Impressions Abdomen/Pelvis CT 01/28/18 16:10 IMPRESSION: Evidence of recent right hip arthroplasty. There is no significant postoperative fluid collection/hematoma. Diffuse soft tissue edema consistent with anasarca. Small amount of free fluid in the abdomen and pelvis. D/ / Carlos A Lerma MD / Carlos A Lerma MD Interpreting Provider: Carlos A Lerma MD Hip CT 01/28/18 16:10 IMPRESSION: 1. Status post right total hip arthroplasty with subcutaneous gas seen tracking along the right gluteus minimus and medius muscles and tensor fascia sophie. Findings likely reflect postsurgical gas given recent hip replacement. No organized drainable fluid collection identified. No discrete hematoma evident. 2. Nonspecific subcutaneous edema throughout the soft tissues with scrotal edema and small bilateral hydroceles also noted. Findings may reflect anasarca. Correlate clinically to exclude cellulitis. 3. Atherosclerotic disease. D/ / Ian Rod MD / Ian Rod MD Interpreting Provider: Ian Rod MD - Attending Attestation I examined this patient and my medical decision-making was reviewed with the Resident Physician. I agree with the documented findings, disposition and treatment plan as described except to the extent set forth below. Now that hypotension is resolved and creatinine is improving, we may resume diuresis since patient is edematous. Sodium improving Taper Solu Cortef as tolerated. Discontinue vancomcyin today and monitor. May consider discontinuing Zosyn as well.
[2018-01-29] MEDS ORDERED: Furosemide 40 MG/4 ML VIAL IVP ONE (14:50)
[2018-01-29] MEDS: Ringers Solution, Lactated 1,000 ML IVC SCH (15:07)
[2018-01-29] MEDS: *HR* OxyCODONE/APAP 5/325 TABLET PO PRN ×2 (17:03→23:30)
[2018-01-29] MEDS: Melatonin 3 MG TABLET PO SCH (20:02)
[2018-01-29] MEDS: Insulin DETEMIR 100 UNIT/ML X5UNITS SQ SCH (20:02)
[2018-01-30] MEDS: Hydrocortisone Sodium Succ 100 MG/2 ML VIAL IVP SCH ×2 (00:30→08:23)
[2018-01-30] MEDS: Piperacillin/Tazobactam 3.375 GM in 0.9 % Sodium Chloride Mini Bag 100 ML IVPB SCH ×3 (00:31→16:30)
[2018-01-30 01:20] LABS: Basophils % 0.1 %; Hematocrit 28.2 % (37.5-50.1); Hemoglobin 9.2 g/dL (12.9-16.9); Immature Granulocytes % 1.2 % (0-4); Lymphocytes % 4.8 %; Mean Corpuscular HGB Conc 32.6 g/dL (31.6-35.5); Mean Platelet Volume 10.8 fL (9.4-12.4); Monocytes # 1.2 K/mcL (0.0-1.3); Monocytes % 5.8 %; Neutrophils # 18.2 K/mcL (1.6-8.9); Platelet Count 202 K/mcL (140-400); Red Blood Count 3.17 M/mcL (4.19-5.50); Red Cell Distribution Width 15.8 % (11.5-14.5); Segmented Neutrophils % 88.1 %
[2018-01-30 01:40] LABS: Alanine Aminotransferase 15 Units/L (7-52); Albumin 3.5 g/dL (3.5-5.7); Albumin/Globulin Ratio 1.3 (1.1-2.2); Alkaline Phosphatase 134 Units/L (34-104); Aspartate Amino Transferase 23 Units/L (13-39); BUN/Creatinine Ratio 34 (6-26); Bilirubin,Total 1.5 mg/dL (0.3-1.0); Blood Urea Nitrogen 42 mg/dL (8-23); Calcium 9.1 mg/dL (8.6-10.3); Carbon Dioxide 25 mEq/L (23-29); Chloride 98 mEq/L (98-107); Globulin 2.8 g/dL (2.4-3.5); Glucose 154 mg/dL (70-105); Osmolality,Calculated 286 (280-300); Potassium 4.6 mEq/L (3.5-5.1); Sodium 131 mEq/L (136-145); Total Protein 6.3 g/dL (6.4-8.9); eGFR For African Americans > 60 (> 60); eGFR For Non-African Americans 59 (> 60)
--- NOTE | 2018-01-30 06:41 | Orthopedics Progress Note ---
Date of Encounter: 01/30/18 Time of Encounter: 06:40 Subjective Principal diagnosis: Status post right total hip arthroplasty Interval history: Patient was seen this morning doing well without complaints. Afebrile vital signs stable. Operative extremity: Neurovascularly intact Dressing clean dry and intact Calves nontender Assessment and plan: Continue with postoperative care No drainage overnight Discharge planning as per hospitalist Objective Vital signs: Vital Signs Temp Pulse Resp BP Pulse Ox 01/30/18 06:25 97.5 F L 60 17 122/95 99 01/30/18 04:20 97.6 F 60 14 136/71 98 01/29/18 23:09 97.6 F 64 16 138/73 98 01/29/18 18:51 97.3 F L 61 16 122/58 100 01/29/18 15:22 98.2 F 97 16 123/81 97 01/29/18 11:19 82 19 139/54 96 01/29/18 09:04 97 Intake and Output 01/29/18 01/29/18 01/30/18 15:59 23:59 07:59 Intake Total 700 / 700 400 / 400 400 / 400 Output Total 650 / 650 825 / 825 600 / 600 Balance 50 / 50 -425 / -425 -200 / -200 Intake: IV Fluids 100 / 100 100 / 100 100 / 100 Zosyn 3.375 GM In 0.9 % Sodium 100 / 100 100 / 100 100 / 100 Chloride (Mini-Bag +) 100 ML @ 25 mls/hr IVPB Q8HR [facility] Rx#: [id number] Oral 600 / 600 300 / 300 300 / 300 Output: Urine 650 / 650 825 / 825 600 / 600 Other: Meal Lunch Percent of Meal Consumed 100% Stool Size Moderate Stool Consistency formed Stool Color Black Blood Glucose* 316 209 190 - Labs CBC & BMP: 01/30/18 00:43 01/30/18 00:43 Labs: Abnormal lab results WBC 20.7 K/mcL (4.3-11.1) H 01/30/18 00:43 RBC 3.17 M/mcL (4.19-5.50) L 01/30/18 00:43 Hgb 9.2 g/dL (12.9-16.9) L 01/30/18 00:43 Hct 28.2 % (37.5-50.1) L 01/30/18 00:43 RDW 15.8 % (11.5-14.5) H 01/30/18 00:43 Reticulocyte # 0.12 M/mcL (0.05-0.10) H 01/28/18 16:54 Neutrophils # 18.2 K/mcL (1.6-8.9) H 01/30/18 00:43 Toxic Granulation Present (Not Present) A 01/26/18 00:21 ESR 47 mm/hr (0-10) H 01/29/18 03:14 Percent Retic 3.7 % (1.6-2.8) H 01/28/18 16:54 PT 18.5 Seconds (9.4-12.1) H 01/24/18 06:41 Sodium 131 mEq/L (136-145) L 01/30/18 00:43 BUN 42 mg/dL (8-23) H 01/30/18 00:43 Est GFR (Non-Af Amer) 59 (> 60) L 01/30/18 00:43 BUN/Creatinine Ratio 34 (6-26) H 01/30/18 00:43 Glucose 154 mg/dL (70-105) H 01/30/18 00:43 POC Glucose 209 mg/dL (70-99) H 01/29/18 19:48 Uric Acid 7.7 mg/dL (2.3-7.6) H 01/27/18 12:21 Total Bilirubin 1.5 mg/dL (0.3-1.0) H 01/30/18 00:43 Direct Bilirubin 0.9 mg/dL (0.0-0.2) H 01/26/18 08:27 Alkaline Phosphatase 134 Units/L (34-104) H 01/30/18 00:43 C-Reactive Protein 54 mg/L (Less than 10) H 01/29/18 03:14 B-Natriuretic Peptide 146 pg/mL (Less than 100) H 01/25/18 22:55 Serum Total Protein 6.3 g/dL (6.4-8.9) L 01/30/18 00:43 Urine Clarity Cloudy (Clear) A 01/21/18 21:05 Ur Leukocyte Esterase Moderate (Negative) H 01/21/18 21:05 Urine Microscopic WBC 15-30 per hpf (0-3) H 01/21/18 21:05 Ur Squamous Epith Cells Moderate per lpf (None-Few) H 01/21/18 21:05 Urine Bacteria Many per hpf (None-Few) H 01/21/18 21:05 Ur Culture Indicated? YES (NO) A 01/21/18 21:05 Protein/Creatinin Ratio 0.24 mg/mg (0.00-0.20) H 01/26/18 12:25 Vancomycin Trough 15 mcg/mL (5-10) H 01/28/18 06:40 - VTE Documentation of Mechanical Device: Intermittent pneumatic compression device Consult Discharge Plan - Plan Referrals: NONE,PCP [Primary Care Provider] - Prescriptions: Doxycycline Hyclate 100 mg PO BID 10 Days #20 tablet
[2018-01-30] MEDS: Colchicine 0.6 MG TABLET PO SCH (08:23)
[2018-01-30] MEDS: Multivit/Ca/Min/Fe/FA 1 TAB TABLET PO SCH (08:25)
[2018-01-30] MEDS: Spironolactone 25 MG TABLET PO SCH (08:25)
[2018-01-30] MEDS: Ascorbic Acid 500 MG TABLET PO SCH ×2 (08:25→16:29)
[2018-01-30] MEDS: Insulin LISPRO 300 UNITS/3 ML VIAL SQ SCH ×4 (08:27→20:24)
[2018-01-30] MEDS: *HR* OxyCODONE/APAP 5/325 TABLET PO PRN (08:40)
[2018-01-30] MEDS ORDERED: Furosemide 20 MG/2 ML VIAL IVP SCH (09:00)
--- NOTE | 2018-01-30 14:39 | Internal Med Progress Note ---
Date of Encounter: 01/30/18 Time of Encounter: 14:38 - Assessment and plan (1) Status post total hip replacement, right Current Visit: Yes Status: Acute Assessment and plan: POD #6. Pt tolerated procedure well. PTOT to continue to attempt to ambulate. Incision is clean and intact. (2) SIRS (systemic inflammatory response syndrome) Current Visit: Yes Status: Acute Assessment and plan: 2 Criteria; leukocytosis and tachycardia. Leukocytosis - possibly stress reaction, had gout flare up and post-operative. Possibility of infection though no clear source Tachycardia - has known history of atrial fibrillation and BB were on hold for hypotension, could possibly be rebound tachycardia. Currently on emperic antibiotic therapy, Zosyn. Vancomycin discontinued 01/29. CRP 54 on 01/29, will repeat on 01/31. (3) Adrenal insufficiency Current Visit: Yes Status: Acute Assessment and plan: May be from acute stress/illness or from steroid therapy withdrawal at home for gout. BP and sodium have normalized after stress dose of hydrocortisone IV. Tolerating taper. Transition to oral Prednisone today, will discharge on taper. (4) CHF (congestive heart failure) Current Visit: Yes Status: Chronic Assessment and plan: Home PO Torsemide is held. ECHO showed LVEDF of 50% Continue IV Lasix for now, patient did need aggressive fluid hydration for hypotension post op Patient requests to be discharged on PO Lasix instead of Torsemide. Qualifiers: Heart failure type: diastolic Heart failure chronicity: chronic Qualified Code(s): I50.32 - Chronic diastolic (congestive) heart failure (5) CKD (chronic kidney disease), stage III Current Visit: Yes Status: Chronic Assessment and plan: Monitor BUN/Records Management Analyst. Had acute on chronic kidney injury that has since resolved. (6) Diabetes mellitus Current Visit: Yes Status: Chronic Assessment and plan: Increase insulin Lispro from low to medium dose q6hr. Poorly controlled blood glucose. 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 Question if there is infection/ sepsis picture. Taper steroids as tolerated Continue antibiotics Qualifiers: Leukocytosis type: leukemoid reaction Qualified Code(s): D72.823 - Leukemoid reaction (8) Gout Current Visit: Yes Status: Resolved Assessment and plan: Known history of gout for which he usually takes Prednisone tapers from primary care provider. Symptoms worsened few days ago post op, now improved after stress dose steroids given. Today he will be starting transitioning to Prednisone for adrenal insufficiency will monitor for gout improvement. Qualifiers: Gout site: toe Gout etiology: unspecified cause Chronicity: unspecified Laterality: right Qualified Code(s): M10.9 - Gout, unspecified (9) Acute blood loss as cause of postoperative anemia Current Visit: Yes Status: Acute Assessment and plan: There was concern for acute bleed since patient having acute drop in hemoglobin , post operative -Retroperitoneal and abd ultrasound are both WNL. CT hip showed no hematoma His baseline hemoglobin prior to admission is 13.5. It went as low as 8.1. Xarelto has been since then. He received 2 units PRBC on 01/25/18 GI was consulted to rule out GIB, which seems less likely at this point. Hemoglobin now stable at 9.2. (10) Acute kidney injury Current Visit: Yes Status: Resolved Assessment and plan: Acute on chronic kidney injury Likely was worsened from episodes of hypotension/hypoperfusion. Retroperitoneal ultrasound unremarkable. Renal function now within normal limits. (11) Atrial fibrillation Current Visit: Yes Status: Acute Assessment and plan: Xarelto is held. HR controlled, not on home metoprolol. Resume home Toprol if HR > 60. Qualifiers: Atrial fibrillation type: chronic Qualified Code(s): I48.2 - Chronic atrial fibrillation (12) Hyperbilirubinemia Current Visit: Yes Status: Acute Assessment and plan: Patient's was concerned and patient was noted to be jaundiced. LFT showed total bilirubin 3.1, direct 1.7, indirect 1.4. Unsure cause but bilirubin has since went down to 1.5 and he no longer appears jaundiced. He does not have any complain of abdominal pain, and abdominal RUQ U/S was unremarkable and he is status-post cholecystectomy. Suggest outpatient follow-up. (13) DVT prophylaxis Current Visit: Yes Status: Acute Assessment and plan: Pt has compression device for legs - Time Spent With Patient Total time spent is greater than 50% in coordination of care (as documented) at patient's floor/unit and/or counseling patient: - Subjective Interval history: No acute events. Gouty flair is improved. Edema relatively unchanged. - Constitutional Vitals: Temp Pulse Resp BP Pulse Ox 98.0 F 62 18 157/71 100 01/30/18 11:37 01/30/18 11:37 01/30/18 11:37 01/30/18 11:37 01/30/18 11:37 General appearance: Present: cooperative, A&O X 3, obese - Head Head exam: Present: atraumatic, normocephalic - Eye Eye exam: Present: PERRL, conjuntiva pink, sclera anicteric Pupils: Present: PERRL - Neck Neck exam general surgery: Present: supple, trachea midline. Absent: lymphadenopathy - Respiratory Respiratory exam: Present: CTAB. Absent: accessory muscle use, rales, rhonchi, wheezes - Cardiovascular Cardiovascular exam: Present: RRR, +S1, +S2. Absent: diastolic murmur, gallop, rubs, systolic murmur - GI/Abdominal GI/Abdominal exam: Present: normal bowel sounds, soft, no peritoneal signs. Absent: distended, tenderness - Extremities Exam Extremities exam: Present: pedal edema, warm, radial pulses palpable and symmetrical. Absent: calf tenderness, cyanotic - Neurological Exam Neurological exam: Present: CN II-XII intact, oriented X3, no focal deficits. Absent: pronater drift, facial droop, speech deficit - Skin Skin exam: Present: dry, intact Internal Medicine: Result - Labs CBC & Chem 7: 01/30/18 00:43 01/30/18 00:43 Labs: Short CBC 01/30/18 Range/Units 00:43 WBC 20.7 H (4.3-11.1) K/mcL Hgb 9.2 L (12.9-16.9) g/dL Hct 28.2 L (37.5-50.1) % Plt Count 202 (140-400) K/mcL Neutrophils # 18.2 H (1.6-8.9) K/mcL BMP 01/30/18 00:43 Sodium 131 L Potassium 4.6 Chloride 98 Carbon Dioxide 25 BUN 42 H Creatinine 1.24 Glucose 154 H Calcium 9.1 Liver Function 01/30/18 Range/Units 00:43 Total Bilirubin 1.5 H (0.3-1.0) mg/dL AST 23 (13-39) Units/L ALT 15 (7-52) Units/L Alkaline Phosphatase 134 H (34-104) Units/L Albumin 3.5 (3.5-5.7) g/dL - ABG Interpretation ABG results: PT/INR, D-dimer PT 18.5 Seconds (9.4-12.1) H 01/24/18 06:41 - VTE Documentation of Mechanical Device: Intermittent pneumatic compression device Consult Discharge Plan - Plan Referrals: NONE,PCP [Primary Care Provider] - Prescriptions: Doxycycline Hyclate 100 mg PO BID 10 Days #20 tablet
[2018-01-30] MEDS: Furosemide 20 MG/2 ML VIAL IVP SCH (16:28)
[2018-01-30] MEDS: predniSONE 20 MG TABLET PO SCH (16:29)
[2018-01-30] MEDS: Insulin DETEMIR 100 UNIT/ML X5UNITS SQ SCH (20:24)
[2018-01-30] MEDS: Melatonin 3 MG TABLET PO SCH (20:24)
[2018-01-31] MEDS: *HR* OxyCODONE/APAP 5/325 TABLET PO PRN (00:06)
[2018-01-31] MEDS: Piperacillin/Tazobactam 3.375 GM in 0.9 % Sodium Chloride Mini Bag 100 ML IVPB SCH ×3 (00:06→16:42)
[2018-01-31 02:05] LABS: Basophils % 0.1 %; Hematocrit 27.9 % (37.5-50.1); Hemoglobin 9.1 g/dL (12.9-16.9); Lymphocytes # 0.4 K/mcL (0.6-4.6); Lymphocytes % 2.5 %; Mean Corpuscular HGB Conc 32.6 g/dL (31.6-35.5); Mean Corpuscular Hemoglobin 29.4 pg (28.0-33.3); Mean Platelet Volume 10.6 fL (9.4-12.4); Monocytes # 0.6 K/mcL (0.0-1.3); Monocytes % 3.3 %; Neutrophils # 16.2 K/mcL (1.6-8.9); Platelet Count 176 K/mcL (140-400); Red Cell Distribution Width 15.7 % (11.5-14.5); Segmented Neutrophils % 93.1 %
[2018-01-31 02:13] LABS: BUN/Creatinine Ratio 29 (6-26); Blood Urea Nitrogen 35 mg/dL (8-23); C-Reactive Protein 16 mg/L (Less than 10); Calcium 8.5 mg/dL (8.6-10.3); Carbon Dioxide 22 mEq/L (23-29); Chloride 100 mEq/L (98-107); Glucose 287 mg/dL (70-105); Osmolality,Calculated 288 (280-300); Potassium 4.6 mEq/L (3.5-5.1); Sodium 130 mEq/L (136-145); eGFR For African Americans > 60 (> 60); eGFR For Non-African Americans > 60 (> 60)
[2018-01-31] MEDS: predniSONE 20 MG TABLET PO SCH (08:08)
[2018-01-31] MEDS: Furosemide 20 MG/2 ML VIAL IVP SCH ×2 (08:08→16:42)
[2018-01-31] MEDS: Multivit/Ca/Min/Fe/FA 1 TAB TABLET PO SCH (08:10)
[2018-01-31] MEDS: Ascorbic Acid 500 MG TABLET PO SCH ×2 (08:10→16:42)
[2018-01-31] MEDS: Spironolactone 25 MG TABLET PO SCH (08:10)
[2018-01-31] MEDS: Colchicine 0.6 MG TABLET PO SCH (08:11)
[2018-01-31] MEDS: Insulin LISPRO 300 UNITS/3 ML VIAL SQ SCH ×4 (08:15→21:59)
--- NOTE | 2018-01-31 09:52 | Internal Med Progress Note ---
<Stevan Griffin S - Last Filed: 01/31/18 12:58> Date of Encounter: 01/31/18 Time of Encounter: 08:45 - Assessment and plan (1) Leukocytosis Current Visit: Yes Status: Acute Assessment and plan: Taper steroids as tolerated. Post op stress rxn vs leukemoid rxn vs steroid therapy Vanc discon't. Still on zosyn Qualifiers: Leukocytosis type: leukemoid reaction Qualified Code(s): D72.823 - Leukemoid reaction (2) CHF (congestive heart failure) Current Visit: No Status: Chronic Assessment and plan: Home PO Torsemide is held. ECHO showed LVEDF of 50% Continue IV Lasix for now, patient did need aggressive fluid hydration for hypotension post op Patient requests to be discharged on PO Lasix instead of Torsemide. Qualifiers: Heart failure type: diastolic Heart failure chronicity: chronic Qualified Code(s): I50.32 - Chronic diastolic (congestive) heart failure (3) CKD (chronic kidney disease), stage III Current Visit: No Status: Chronic Assessment and plan: CKD stage 3 (4) Diabetes mellitus Current Visit: No Status: Chronic Assessment and plan: Increase insulin Lispro from low to medium dose q6hr. Poorly controlled blood glucose. 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 Known hx of gout. Qualifiers: Gout site: toe Gout etiology: unspecified cause Chronicity: unspecified Laterality: right Qualified Code(s): M10.9 - Gout, unspecified (6) DVT prophylaxis Current Visit: Yes Status: Acute Assessment and plan: Pt has compression device for legs (7) Acute blood loss as cause of postoperative anemia Current Visit: Yes Status: Acute Assessment and plan: Retroperitoneal and abd ultrasound are both WNL. CT hip showed no hematoma H is baseline hemoglobin prior to admission is 13.5. It went as low as 8.1. Today is 9.1 Xarelto has been since then. He received 2 units PRBC on 01/25/18 GI was consulted to rule out GIB. FOBT negative. Recomennd outpt follow up (8) SIRS (systemic inflammatory response syndrome) Current Visit: Yes Status: Resolved Assessment and plan: 2 Criteria; leukocytosis and tachycardia. - Pt HR today is 66. WBC is 17.4, likely due to prednisone ... no clear source of infx. Currently on emperic antibiotic therapy, Zosyn. Vancomycin discontinued 01/29. CRP 54 on 01/29, today is 16 (9) Acute kidney injury Current Visit: Yes Status: Resolved Assessment and plan: Acute on chronic kidney injury - resolved. Likely due to hypotension. Renal fxn today: BUN 35, [employer] 1.19 (10) Status post total hip replacement, right Current Visit: Yes Status: Acute Assessment and plan: POD #7. Pt tolerated procedure well. PTOT to continue to attempt to ambulate. Incision is clean and intact. (11) Adrenal insufficiency Current Visit: Yes Status: Acute Assessment and plan: Acute stress/illness vs steroid tx vs tapering from home gout rx. BP today is 121/66, HR 66. Sodium is 130.Pt will be discharged on taper. He is tolerating taper. (12) Atrial fibrillation Current Visit: No Status: Chronic Assessment and plan: Xarelto is held. HR controlled, not on home metoprolol. Resume home Toprol if HR > 60. Qualifiers: Atrial fibrillation type: chronic Qualified Code(s): I48.2 - Chronic atrial fibrillation (13) Hyperbilirubinemia Current Visit: Yes Status: Acute Assessment and plan: Bilirubin today is 1.5 . Does not appear jaundiced. Denies abd pain, RUQ was unremarkable, pt has cholecystectomy. Will check GGT since alk phos is elevated , bone vs biliary tract involvement - Time Spent With Patient Total time spent is greater than 50% in coordination of care (as documented) at patient's floor/unit and/or counseling patient: - Subjective Interval history: 62yo male is seen in room. He is here for right femur fx. He is POD#6 s/p total hip arthroplasty. He states that pain is very controlled, has no new complaints. Says that bilat big toes are much better, no pain from gout. Pt denies fever/chills/CP/SOB, n/v/d, dizziness, numbness, tingling. PTOT ambulating, he is sitting in chair. BP 121/66 today, HR 66. Pt c/o feeling full of fluid, legs are wrapped, continue to hold torosemide. Pt requests to be d/c'd on PO lasix. FOBT negative. Pt hemoglobin 9.1 today, CT was negative for hematoma but showed posisble cellulitis. - Constitutional Vitals: Temp Pulse Resp BP Pulse Ox 97.9 F 66 16 121/66 96 01/31/18 07:43 01/31/18 07:43 01/31/18 07:43 01/31/18 07:43 01/31/18 07:43 General appearance: Present: cooperative, A&O X 3, obese - Head Head exam: Present: atraumatic, normal inspection - Neck Neck exam general surgery: Present: supple - Respiratory Respiratory exam: Present: CTAB - Cardiovascular Cardiovascular exam: Present: RRR, +S1, +S2 - GI/Abdominal GI/Abdominal exam: Present: normal bowel sounds, soft, no peritoneal signs - Incison Incision: Present: clean and dry - Neurological Exam Neurological exam: Present: no focal deficits - Psychiatric Psychiatric exam: Present: normal mood - Skin Skin exam: Present: intact Internal Medicine: Result - Labs CBC & Chem 7: 01/31/18 01:34 01/31/18 01:34 Labs: Short CBC 01/31/18 Range/Units 01:34 WBC 17.4 H (4.3-11.1) K/mcL Hgb 9.1 L (12.9-16.9) g/dL Hct 27.9 L (37.5-50.1) % Plt Count 176 (140-400) K/mcL Neutrophils # 16.2 H (1.6-8.9) K/mcL BMP 01/31/18 01:34 Sodium 130 L Potassium 4.6 Chloride 100 Carbon Dioxide 22 L BUN 35 H Creatinine 1.19 Glucose 287 H Calcium 8.5 L - ABG Interpretation ABG results: PT/INR, D-dimer PT 18.5 Seconds (9.4-12.1) H 01/24/18 06:41 - VTE Documentation of Mechanical Device: Intermittent pneumatic compression device Consult Discharge Plan - Plan Referrals: NONE,PCP [Primary Care Provider] - Prescriptions: Doxycycline Hyclate 100 mg PO BID 10 Days #20 tablet <Isidra Paul - Last Filed: 01/31/18 18:44> Date of Encounter: 01/31/18 - Assessment and plan (1) CHF (congestive heart failure) Current Visit: No Status: Chronic Qualifiers: Heart failure type: diastolic Heart failure chronicity: chronic Qualified Code(s): I50.32 - Chronic diastolic (congestive) heart failure (2) CKD (chronic kidney disease), stage III Current Visit: No Status: Chronic (3) Diabetes mellitus Current Visit: No Status: Chronic Qualifiers: Diabetes mellitus type: type 2 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 Diabetes mellitus complication status: with kidney complications Diabetes mellitus complication detail: with chronic kidney disease Chronic kidney disease stage: stage 3 (moderate) Qualified Code(s): E11.22 - Type 2 diabetes mellitus with diabetic chronic kidney disease; N18.3 - Chronic kidney disease, stage 3 (moderate); Z79.4 - [facility] (current) use of insulin (4) Leukocytosis Current Visit: Yes Status: Acute Qualifiers: Leukocytosis type: leukemoid reaction Qualified Code(s): D72.823 - Leukemoid reaction (5) Gout Current Visit: Yes Status: Resolved Qualifiers: Gout site: toe Gout etiology: unspecified cause Chronicity: unspecified Laterality: right Qualified Code(s): M10.9 - Gout, unspecified (6) DVT prophylaxis Current Visit: Yes Status: Acute (7) Acute blood loss as cause of postoperative anemia Current Visit: Yes Status: Acute (8) SIRS (systemic inflammatory response syndrome) Current Visit: Yes Status: Resolved (9) Acute kidney injury Current Visit: Yes Status: Resolved (10) Status post total hip replacement, right Current Visit: Yes Status: Acute (11) Adrenal insufficiency Current Visit: Yes Status: Acute (12) Atrial fibrillation Current Visit: No Status: Chronic Qualifiers: Atrial fibrillation type: chronic Qualified Code(s): I48.2 - Chronic atrial fibrillation (13) Hyperbilirubinemia Current Visit: Yes Status: Acute - Time Spent With Patient Total time spent is greater than 50% in coordination of care (as documented) at patient's floor/unit and/or counseling patient: - Constitutional Vitals: Temp Pulse Resp BP Pulse Ox 97.5 F L 64 16 116/55 99 01/31/18 16:41 01/31/18 16:41 01/31/18 16:41 01/31/18 16:41 01/31/18 16:41 Internal Medicine: Result - Labs CBC & Chem 7: 01/31/18 01:34 01/31/18 10:25 Labs: Short CBC 01/31/18 Range/Units 01:34 WBC 17.4 H (4.3-11.1) K/mcL Hgb 9.1 L (12.9-16.9) g/dL Hct 27.9 L (37.5-50.1) % Plt Count 176 (140-400) K/mcL Neutrophils # 16.2 H (1.6-8.9) K/mcL BMP 01/31/18 01/31/18 01:34 10:25 Sodium 130 L 131 L Potassium 4.6 4.8 Chloride 100 99 Carbon Dioxide 22 L 25 BUN 35 H 32 H Creatinine 1.19 1.14 Glucose 287 H 202 H Calcium 8.5 L 8.7 Liver Function 01/31/18 Range/Units 10:25 Total Bilirubin 1.4 H (0.3-1.0) mg/dL GGT 166 H (2-30) Units/L AST 19 (13-39) Units/L ALT 17 (7-52) Units/L Alkaline Phosphatase 109 H (34-104) Units/L Albumin 3.1 L (3.5-5.7) g/dL - ABG Interpretation ABG results: PT/INR, D-dimer PT 18.5 Seconds (9.4-12.1) H 01/24/18 06:41 - Attending Attestation I examined this patient and my medical decision-making was reviewed with the Resident Physician. I agree with the documented findings, disposition and treatment plan as described except to the extent set forth below. Patient stable but still has fluid overload as seen with edema of lower extremities, he is in no acute distress. Continue IV diuretics. Once edema is stable, he can be discharged. - Discharge on Prednisone taper - Will be discharged with Lasix - Do not continue Torsemide per patient's preference.
--- NOTE | 2018-01-31 13:07 | Infectious Disease Progress No ---
Date of Encounter: 01/31/18 Time of Encounter: 14:00 - Assessment and Plan (1) Sepsis Current Visit: Yes Status: Deleted - Etiology unknown; possibly secondary to corticosteroid therapy versus infection - Met 2 out of 4 SIRS criteria; temperature of 101.1 on 01/24 and leukocytosis - White count today is 17.4, down from 20.7 - Vital signs are within normal limits - Pro calcitonin was elevated at 0.26 - CRP 54,16, ESR 47 - Blood cultures from 01/25 are negative 2 - Urine culture from 01/26 is negative - Patient does not appear septic. We recommend discontinuation of antibiotics. ID will sign off. Qualifiers: Sepsis type: sepsis due to unspecified organism Qualified Code(s): A41.9 - Sepsis, unspecified organism (2) Leukocytosis Current Visit: Yes Status: Acute Likely secondary to neutrophilia from glucocorticoid therapy - WBC count of 17.4 today, down from 20.7 - Patients white count reached a high of 27.3 on 01/26 Qualifiers: Leukocytosis type: leukemoid reaction Qualified Code(s): D72.823 - Leukemoid reaction (3) Acute kidney injury Current Visit: Yes Status: Resolved - Patient developed PING, possibly secondary to hypovolemic prerenal failure - Continue to monitor patients kidney function (4) Acute blood loss as cause of postoperative anemia Current Visit: Yes Status: Acute On 01/24, patient experienced a large drop in hemoglobin from 12.2-10.6. The next day, patients hemoglobin dropped to 8.7. - FOBT has been ordered - Retroperitoneal and abdominal ultrasound are both within normal limits - Patient was transfused with 2 units of packed red blood cells on 01/25 - Patients hemoglobin today is 9.1 - Stool occult negative - GI is on board (5) Femoral neck fracture Current Visit: Yes Status: Acute POD#7 s/p JOSE - Pt tolerated procedure well - There is no erythema or swelling in the surrounding region Qualifiers: Encounter type: subsequent encounter Fracture type: closed Laterality: right Fracture healing: with routine healing Qualified Code(s): S72.001D - Fracture of unspecified part of neck of right femur, subsequent encounter for closed fracture with routine healing (6) Gout Current Visit: Yes Status: Resolved - Patient is currently on steroid therapy for the management of his gout - Management per primary team - Continue to closely monitor patients white count Qualifiers: Gout site: toe Gout etiology: unspecified cause Chronicity: unspecified Laterality: right Qualified Code(s): M10.9 - Gout, unspecified - Subjective Interval history: Patient was seen and examined at bedside this morning. He states that he is feeling well today. Denies fever, chills, nausea, vomiting, abdominal pain, weakness, and dizziness. Does not appear jaundiced. He has no complaints at this time. Infect Dis PN-Objective Data - Labs CBC & Chem 7: 02/01/18 01:09 02/01/18 01:09 Labs: Laboratory Results - last 24 hr 01/26/18 01/29/18 01/30/18 09:53 03:14 06:30 WBC RBC Hgb Hct MCV MCH MCHC RDW Plt Count MPV Immature Gran % Seg Neutrophils % Lymphocytes % Monocytes % Eosinophils % Basophils % Neutrophils # Lymphocytes # Monocytes # Eosinophils # Basophils # Sodium Potassium Chloride Carbon Dioxide BUN Creatinine Est GFR ( Amer) Est GFR (Non-Af Amer) BUN/Creatinine Ratio Glucose POC Glucose 190 H Calculated Osmolality Calcium C-Reactive Protein Renin Activity 97.0 Procalcitonin 0.26 H 01/30/18 01/30/18 01/30/18 11:41 15:28 19:03 WBC RBC Hgb Hct MCV MCH MCHC RDW Plt Count MPV Immature Gran % Seg Neutrophils % Lymphocytes % Monocytes % Eosinophils % Basophils % Neutrophils # Lymphocytes # Monocytes # Eosinophils # Basophils # Sodium Potassium Chloride Carbon Dioxide BUN Creatinine Est GFR ( Amer) Est GFR (Non-Af Amer) BUN/Creatinine Ratio Glucose POC Glucose 241 H 295 H 205 H Calculated Osmolality Calcium C-Reactive Protein Renin Activity Procalcitonin 01/31/18 01/31/18 01:34 01:34 WBC 17.4 H RBC 3.10 L Hgb 9.1 L Hct 27.9 L MCV 90.0 MCH 29.4 MCHC 32.6 RDW 15.7 H Plt Count 176 MPV 10.6 Immature Gran % 1.0 Seg Neutrophils % 93.1 Lymphocytes % 2.5 Monocytes % 3.3 Eosinophils % 0.0 Basophils % 0.1 Neutrophils # 16.2 H Lymphocytes # 0.4 L Monocytes # 0.6 Eosinophils # 0.0 Basophils # 0.0 Sodium 130 L Potassium 4.6 Chloride 100 Carbon Dioxide 22 L BUN 35 H Creatinine 1.19 Est GFR ( Amer) > 60 Est GFR (Non-Af Amer) > 60 BUN/Creatinine Ratio 29 H Glucose 287 H POC Glucose Calculated Osmolality 288 Calcium 8.5 L C-Reactive Protein 16 H Renin Activity Procalcitonin Cultures: Cultures 01/25/18 19:53 Blood Culture - Final Peripheral Venipuncture No growth. Final report. 01/25/18 19:53 Blood Culture - Final Peripheral Venipuncture No growth. Final report. 01/26/18 05:36 Urine Culture - Final Urine,Clean Catch No significant growth. 01/21/18 21:05 Urine Culture - Final Urine,Clean Catch Culture is grossly mixed, unable to properly interpret. Please repeat if indicated. Serology 01/28/18 01/26/18 01/26/18 Range/Units 09:00 12:25 12:25 Urine Color (Yellow) Urine Clarity (Clear) Urine pH (5.0-8.0) pH Units Ur Specific [place] (1.010-1.025) Urine Protein (Neg-Trace) mg/dL Urine Glucose (UA) (Normal) mg/dL Urine Ketones (Negative) mg/dL Urine Blood (Negative) Urine Nitrite (Negative) Urine Bilirubin (Negative) Urine Urobilinogen (Normal) mg/dL Ur Leukocyte Esterase (Negative) Urine Microscopic RBC (0-3) per hpf Urine Microscopic WBC (0-3) per hpf Ur Squamous Epith Cells (None-Few) per lpf Urine Bacteria (None-Few) per hpf Hyaline Casts (None-Few) per lpf Ur Culture Indicated? (NO) Urine Creatinine 54 mg/dL Protein/Creatinin Ratio 0.24 H (0.00-0.20) mg/mg Urine Urea Nitrogen 575 mg/dL Urine Total Protein 13 (1-14) mg/dL Stool Occult Blood Negative (Negative) 01/21/18 Range/Units 21:05 Urine Color Yellow (Yellow) Urine Clarity Cloudy A (Clear) Urine pH 6.0 (5.0-8.0) pH Units Ur Specific [place] 1.015 (1.010-1.025) Urine Protein Negative (Neg-Trace) mg/dL Urine Glucose (UA) Normal (Normal) mg/dL Urine Ketones Negative (Negative) mg/dL Urine Blood Negative (Negative) Urine Nitrite Negative (Negative) Urine Bilirubin Negative (Negative) Urine Urobilinogen Normal (Normal) mg/dL Ur Leukocyte Esterase Moderate H (Negative) Urine Microscopic RBC 0-3 (0-3) per hpf Urine Microscopic WBC 15-30 H (0-3) per hpf Ur Squamous Epith Cells Moderate H (None-Few) per lpf Urine Bacteria Many H (None-Few) per hpf Hyaline Casts None Seen (None-Few) per lpf Ur Culture Indicated? YES A (NO) Urine Creatinine mg/dL Protein/Creatinin Ratio (0.00-0.20) mg/mg Urine Urea Nitrogen mg/dL Urine Total Protein (1-14) mg/dL Stool Occult Blood (Negative) Exam - Constitutional Vitals: Temp Pulse Resp BP Pulse Ox 97.4 F L 61 14 135/84 96 01/31/18 11:32 01/31/18 11:32 01/31/18 11:32 01/31/18 11:32 01/31/18 07:43 - Head Head exam: Present: atraumatic, normal inspection, normocephalic - Respiratory Respiratory exam: Present: CTAB. Absent: wheezes, tachypnea - Cardiovascular Cardiovascular exam: Present: RRR, +S1, +S2. Absent: bradycardia, systolic murmur, tachycardia - Psychiatric Psychiatric exam: Present: normal affect, normal mood - Skin Skin exam: Present: dry, intact, normal color - VTE Documentation of Mechanical Device: Intermittent pneumatic compression device Consult Discharge Plan - Plan Referrals: NONE,PCP [Primary Care Provider] - Prescriptions: Doxycycline Hyclate 100 mg PO BID 10 Days #20 tablet - Attending Attestation I examined this patient and my medical decision-making was reviewed with the Resident Physician. I agree with the documented findings, disposition and treatment plan as described except to the extent set forth below.
[2018-01-31 14:46] LABS: Alanine Aminotransferase 17 Units/L (7-52); Albumin 3.1 g/dL (3.5-5.7); Albumin/Globulin Ratio 1.3 (1.1-2.2); Alkaline Phosphatase 109 Units/L (34-104); Aspartate Amino Transferase 19 Units/L (13-39); BUN/Creatinine Ratio 28 (6-26); Bilirubin,Total 1.4 mg/dL (0.3-1.0); Blood Urea Nitrogen 32 mg/dL (8-23); Calcium 8.7 mg/dL (8.6-10.3); Carbon Dioxide 25 mEq/L (23-29); Chloride 99 mEq/L (98-107); Gamma Glutamyl Transpeptidase 166 Units/L (2-30); Globulin 2.3 g/dL (2.4-3.5); Glucose 202 mg/dL (70-105); Osmolality,Calculated 285 (280-300); Potassium 4.8 mEq/L (3.5-5.1); Sodium 131 mEq/L (136-145); Total Protein 5.4 g/dL (6.4-8.9); eGFR For African Americans > 60 (> 60); eGFR For Non-African Americans > 60 (> 60)
--- NOTE | 2018-01-31 16:03 | Orthopedics Progress Note ---
Date of Encounter: 01/31/18 Time of Encounter: 08:00 - Assessment and Plan (1) Status post total hip replacement, right Current Visit: Yes Status: Acute Plan: Per Hospitalist note: Taper steroids as tolerated. Post op stress rxn vs leukemoid rxn vs steroid therapy Vanc discon't. Still on zosyn Stable from orthopedic standpoint, mora intact. Continue BID dressing changes. Plan for oral aBX at discharge - Doxycycline printed Discharge to [facility] tomorrow if stable per medicine. Hip precautions to be followed. F/up this week in office Subjective Principal diagnosis: Status post right total hip arthroplasty Interval history: POD#6 - Right THR Patient is A&O x 3, doing well this morning. Swelling improved. Pain tolerated, patient denies pain to right hip. States finally given prednisone which has helped. RLE: Dressing - BID dressing changes, current dressing has quarter size amount of serusanginous drainage. No erythema noted. No calf tenderness - currently has mitchel bandages to bilat lower legs ROM limited NV intact distally Plan: Per Hospitalist note: Taper steroids as tolerated. Post op stress rxn vs leukemoid rxn vs steroid therapy Vanc discon't. Still on zosyn Stable from orthopedic standpoint, mora intact. Continue BID dressing changes. Plan for oral aBX at discharge - Doxycycline printed Discharge to [facility] tomorrow if stable per medicine. Objective Vital signs: Vital Signs Temp Pulse Resp BP Pulse Ox 01/31/18 11:32 97.4 F L 61 14 135/84 01/31/18 07:43 97.9 F 66 16 121/66 96 01/31/18 04:04 97.9 F 61 16 133/71 97 01/31/18 00:06 98.6 F 62 16 119/59 97 01/30/18 19:05 97.7 F 65 16 126/71 100 Intake and Output 01/30/18 01/31/18 01/31/18 23:59 07:59 15:59 Intake Total 460 / 460 100 / 100 600 / 600 Output Total 900 / 900 525 / 525 950 / 950 Balance -440 / -440 -425 / -425 -350 / -350 Intake: IV Fluids 100 / 100 100 / 100 Zosyn 3.375 GM In 0.9 % Sodium 100 / 100 100 / 100 Chloride (Mini-Bag +) 100 ML @ 25 mls/hr IVPB Q8HR [facility] Rx#: [id number] Oral 360 / 360 600 / 600 Output: Urine 900 / 900 525 / 525 950 / 950 Other: Meal Dinner Lunch Percent of Meal Consumed 95% 100% Stool Size Copious Stool Consistency formed Stool Characteristics Normal for Patient # Bowel Movements 1 Weight 121.4 kg Blood Glucose* 205 242 178 Patient Weight 01/31/18 23:59 Weight 121.4 kg - Labs CBC & BMP: 01/31/18 01:34 01/31/18 10:25 Labs: Abnormal lab results WBC 17.4 K/mcL (4.3-11.1) H 01/31/18 01:34 RBC 3.10 M/mcL (4.19-5.50) L 01/31/18 01:34 Hgb 9.1 g/dL (12.9-16.9) L 01/31/18 01:34 Hct 27.9 % (37.5-50.1) L 01/31/18 01:34 RDW 15.7 % (11.5-14.5) H 01/31/18 01:34 Reticulocyte # 0.12 M/mcL (0.05-0.10) H 01/28/18 16:54 Neutrophils # 16.2 K/mcL (1.6-8.9) H 01/31/18 01:34 Lymphocytes # 0.4 K/mcL (0.6-4.6) L 01/31/18 01:34 Toxic Granulation Present (Not Present) A 01/26/18 00:21 ESR 47 mm/hr (0-10) H 01/29/18 03:14 Percent Retic 3.7 % (1.6-2.8) H 01/28/18 16:54 PT 18.5 Seconds (9.4-12.1) H 01/24/18 06:41 Sodium 131 mEq/L (136-145) L 01/31/18 10:25 BUN 32 mg/dL (8-23) H 01/31/18 10:25 BUN/Creatinine Ratio 28 (6-26) H 01/31/18 10:25 Glucose 202 mg/dL (70-105) H 01/31/18 10:25 POC Glucose 205 mg/dL (70-99) H 01/30/18 19:03 Uric Acid 7.7 mg/dL (2.3-7.6) H 01/27/18 12:21 Total Bilirubin 1.4 mg/dL (0.3-1.0) H 01/31/18 10:25 Direct Bilirubin 0.9 mg/dL (0.0-0.2) H 01/26/18 08:27 GGT 166 Units/L (2-30) H 01/31/18 10:25 Alkaline Phosphatase 109 Units/L (34-104) H 01/31/18 10:25 C-Reactive Protein 16 mg/L (Less than 10) H 01/31/18 01:34 B-Natriuretic Peptide 146 pg/mL (Less than 100) H 01/25/18 22:55 Serum Total Protein 5.4 g/dL (6.4-8.9) L 01/31/18 10:25 Albumin 3.1 g/dL (3.5-5.7) L 01/31/18 10:25 Globulin 2.3 g/dL (2.4-3.5) L 01/31/18 10:25 Procalcitonin 0.26 ng/mL (<=0.07) H 01/29/18 03:14 Urine Clarity Cloudy (Clear) A 01/21/18 21:05 Ur Leukocyte Esterase Moderate (Negative) H 01/21/18 21:05 Urine Microscopic WBC 15-30 per hpf (0-3) H 01/21/18 21:05 Ur Squamous Epith Cells Moderate per lpf (None-Few) H 01/21/18 21:05 Urine Bacteria Many per hpf (None-Few) H 01/21/18 21:05 Ur Culture Indicated? YES (NO) A 01/21/18 21:05 Protein/Creatinin Ratio 0.24 mg/mg (0.00-0.20) H 01/26/18 12:25 Vancomycin Trough 15 mcg/mL (5-10) H 01/28/18 06:40 - VTE Documentation of Mechanical Device: Intermittent pneumatic compression device Consult Discharge Plan - Plan Referrals: NONE,PCP [Primary Care Provider] - Prescriptions: Doxycycline Hyclate 100 mg PO BID 10 Days #20 tablet
[2018-01-31] MEDS: Metoprolol XL (24 HR) Succ 25 MG TAB.ER.24H PO SCH (18:30)
[2018-01-31] MEDS: Melatonin 3 MG TABLET PO SCH (21:58)
[2018-01-31] MEDS: Insulin DETEMIR 100 UNIT/ML X5UNITS SQ SCH (21:58)
[2018-02-01 01:52] LABS: Basophils % 0.1 %; Eosinophils # 0.1 K/mcL (0.0-0.6); Eosinophils % 0.3 %; Hematocrit 28.8 % (37.5-50.1); Hemoglobin 9.2 g/dL (12.9-16.9); Immature Granulocytes % 1.6 % (0-4); Lymphocytes # 1.3 K/mcL (0.6-4.6); Lymphocytes % 6.9 %; Mean Corpuscular HGB Conc 31.9 g/dL (31.6-35.5); Mean Corpuscular Hemoglobin 28.8 pg (28.0-33.3); Mean Corpuscular Volume 90.3 fL (83.0-100.0); Mean Platelet Volume 10.4 fL (9.4-12.4); Monocytes # 1.2 K/mcL (0.0-1.3); Monocytes % 6.3 %; Neutrophils # 15.5 K/mcL (1.6-8.9); Platelet Count 211 K/mcL (140-400); Red Blood Count 3.19 M/mcL (4.19-5.50); Red Cell Distribution Width 15.9 % (11.5-14.5); Segmented Neutrophils % 84.8 %
[2018-02-01 02:02] LABS: BUN/Creatinine Ratio 30 (6-26); Blood Urea Nitrogen 33 mg/dL (8-23); Calcium 9.1 mg/dL (8.6-10.3); Carbon Dioxide 28 mEq/L (23-29); Chloride 99 mEq/L (98-107); Glucose 153 mg/dL (70-105); Osmolality,Calculated 282 (280-300); Potassium 4.3 mEq/L (3.5-5.1); Sodium 131 mEq/L (136-145); eGFR For African Americans > 60 (> 60); eGFR For Non-African Americans > 60 (> 60)
[2018-02-01] MEDS: predniSONE 20 MG TABLET PO SCH (08:10)
[2018-02-01] MEDS: Metoprolol XL (24 HR) Succ 25 MG TAB.ER.24H PO SCH (08:10)
[2018-02-01] MEDS: Multivit/Ca/Min/Fe/FA 1 TAB TABLET PO SCH (08:11)
[2018-02-01] MEDS: Ascorbic Acid 500 MG TABLET PO SCH ×2 (08:11→17:32)
[2018-02-01] MEDS: Furosemide 20 MG/2 ML VIAL IVP SCH ×2 (08:12→17:32)
[2018-02-01] MEDS: Colchicine 0.6 MG TABLET PO SCH (08:13)
[2018-02-01] MEDS: Insulin LISPRO 300 UNITS/3 ML VIAL SQ SCH ×4 (08:23→20:30)
--- NOTE | 2018-02-01 12:16 | Orthopedics Progress Note ---
Date of Encounter: 02/01/18 Time of Encounter: 12:15 - Assessment and Plan (1) Status post total hip replacement, right Current Visit: Yes Status: Acute Plan: Per Hospitalist note 01/31: Taper steroids as tolerated. Post op stress rxn vs leukemoid rxn vs steroid therapy Vanc discon't. Still on zosyn Stable from orthopedic standpoint, mora intact. Continue BID dressing changes. Plan for oral aBX at discharge - Doxycycline printed Discharge to [facility] today if stable per medicine. Hip precautions to be followed. F/up this week in office Subjective Principal diagnosis: Status post right total hip arthroplasty Interval history: POD#7 - Right THR Patient is A&O x 3, doing well this morning. Swelling improved. Pain tolerated, patient denies pain to right hip. RLE: Dressing - BID dressing changes, current dressing has quarter size amount of serusanginous drainage. No erythema noted. No calf tenderness - currently has mitchel bandages to bilat lower legs ROM limited NV intact distally Plan: Per Hospitalist note 01/31: Taper steroids as tolerated. Post op stress rxn vs leukemoid rxn vs steroid therapy Vanc discon't. Still on zosyn Stable from orthopedic standpoint, mora intact. Continue BID dressing changes. Plan for oral aBX at discharge - Doxycycline printed Discharge to [facility] today if stable per medicine. Objective Vital signs: Vital Signs Temp Pulse Resp BP Pulse Ox 02/01/18 10:49 97.9 F 63 14 118/69 98 02/01/18 07:04 98.1 F 67 16 126/73 100 02/01/18 03:08 97.7 F 62 16 102/58 97 01/31/18 23:28 98.0 F 77 18 122/59 100 01/31/18 18:38 97.6 F 74 18 139/58 96 01/31/18 16:41 97.5 F L 64 16 116/55 99 Intake and Output 01/31/18 02/01/18 02/01/18 23:59 07:59 15:59 Intake Total 1140 / 1140 50 / 50 120 / 120 Output Total 650 / 650 500 / 500 350 / 350 Balance 490 / 490 -450 / -450 -230 / -230 Intake: Oral 1140 / 1140 50 / 50 120 / 120 Output: Urine 650 / 650 500 / 500 350 / 350 Other: Meal Dinner Breakfast Percent of Meal Consumed 100% 100% Weight 121 kg Blood Glucose* 295 118 143 Patient Weight 02/01/18 23:59 Weight 121 kg Incision: clean and dry - Labs CBC & BMP: 02/01/18 01:09 02/01/18 01:09 Labs: Abnormal lab results WBC 18.3 K/mcL (4.3-11.1) H 02/01/18 01:09 RBC 3.19 M/mcL (4.19-5.50) L 02/01/18 01:09 Hgb 9.2 g/dL (12.9-16.9) L 02/01/18 01:09 Hct 28.8 % (37.5-50.1) L 02/01/18 01:09 RDW 15.9 % (11.5-14.5) H 02/01/18 01:09 Reticulocyte # 0.12 M/mcL (0.05-0.10) H 01/28/18 16:54 Neutrophils # 15.5 K/mcL (1.6-8.9) H 02/01/18 01:09 Toxic Granulation Present (Not Present) A 01/26/18 00:21 ESR 47 mm/hr (0-10) H 01/29/18 03:14 Percent Retic 3.7 % (1.6-2.8) H 01/28/18 16:54 PT 18.5 Seconds (9.4-12.1) H 01/24/18 06:41 Sodium 131 mEq/L (136-145) L 02/01/18 01:09 BUN 33 mg/dL (8-23) H 02/01/18 01:09 BUN/Creatinine Ratio 30 (6-26) H 02/01/18 01:09 Glucose 153 mg/dL (70-105) H 02/01/18 01:09 POC Glucose 214 mg/dL (70-99) H 01/31/18 16:43 Uric Acid 7.7 mg/dL (2.3-7.6) H 01/27/18 12:21 Total Bilirubin 1.4 mg/dL (0.3-1.0) H 01/31/18 10:25 Direct Bilirubin 0.9 mg/dL (0.0-0.2) H 01/26/18 08:27 GGT 168 Units/L (2-30) H 02/01/18 01:09 Alkaline Phosphatase 109 Units/L (34-104) H 01/31/18 10:25 C-Reactive Protein 16 mg/L (Less than 10) H 01/31/18 01:34 B-Natriuretic Peptide 146 pg/mL (Less than 100) H 01/25/18 22:55 Serum Total Protein 5.4 g/dL (6.4-8.9) L 01/31/18 10:25 Albumin 3.1 g/dL (3.5-5.7) L 01/31/18 10:25 Globulin 2.3 g/dL (2.4-3.5) L 01/31/18 10:25 Procalcitonin 0.26 ng/mL (<=0.07) H 01/29/18 03:14 Urine Clarity Cloudy (Clear) A 01/21/18 21:05 Ur Leukocyte Esterase Moderate (Negative) H 01/21/18 21:05 Urine Microscopic WBC 15-30 per hpf (0-3) H 01/21/18 21:05 Ur Squamous Epith Cells Moderate per lpf (None-Few) H 01/21/18 21:05 Urine Bacteria Many per hpf (None-Few) H 01/21/18 21:05 Ur Culture Indicated? YES (NO) A 01/21/18 21:05 Protein/Creatinin Ratio 0.24 mg/mg (0.00-0.20) H 01/26/18 12:25 Vancomycin Trough 15 mcg/mL (5-10) H 01/28/18 06:40 - VTE Documentation of Mechanical Device: Venous foot pump, device Consult Discharge Plan - Plan Referrals: NONE,PCP [Primary Care Provider] - Prescriptions: Doxycycline Hyclate 100 mg PO BID 10 Days #20 tablet
--- NOTE | 2018-02-01 19:05 | Internal Med Progress Note ---
Date of Encounter: 02/02/18 Time of Encounter: 19:05 - Assessment and plan (1) Status post total hip replacement, right Current Visit: Yes Status: Acute Assessment and plan: Pt tolerated procedure well. PTOT to continue to attempt to ambulate. Incision is clean and intact. Hospital stay was complicated by severe hypotension likely from adrenal insufficiency. Hypotension resulted in PING that has resolved. He also had a gout flare as well. Patient is fluid overloaded while being resuscitated. Now that kidney function is normal he has been tolerating diuresis well. He still has significant edema in lower extremities. Disposition. - Discharge on Prednisone taper - Will be discharged with Lasix, do not continue home Torsemide (patient's preference) - May need to restart Xarelto on discharge. - Awaiting re-approval to swing bed/ECF (2) CHF (congestive heart failure) Current Visit: No Status: Chronic Assessment and plan: Home PO Torsemide is held. ECHO showed LVEDF of 50% Continue IV Lasix for now, patient did need aggressive fluid hydration for hypotension post op Patient requests to be discharged on PO Lasix instead of Torsemide. Qualifiers: Heart failure type: diastolic Heart failure chronicity: chronic Qualified Code(s): I50.32 - Chronic diastolic (congestive) heart failure (3) CKD (chronic kidney disease), stage III Current Visit: No Status: Chronic Assessment and plan: CKD stage 3 (4) Diabetes mellitus Current Visit: No Status: Chronic Assessment and plan: Increase insulin Lispro from low to medium dose q6hr. Poorly controlled blood glucose. 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 Post op stress rxn vs leukemoid rxn vs steroid therapy Vanc discon't. Still on zosyn Qualifiers: Leukocytosis type: leukemoid reaction Qualified Code(s): D72.823 - Leukemoid reaction (6) Gout Current Visit: Yes Status: Resolved Assessment and plan: s/s worsened a few days ago post op, has improved with steroids. Known hx of gout. Qualifiers: Gout site: toe Gout etiology: unspecified cause Chronicity: unspecified Laterality: right Qualified Code(s): M10.9 - Gout, unspecified (7) DVT prophylaxis Current Visit: Yes Status: Acute Assessment and plan: Pt has compression device for legs (8) Acute blood loss as cause of postoperative anemia Current Visit: Yes Status: Acute Assessment and plan: Retroperitoneal and abd ultrasound are both WNL. CT hip showed no hematoma H is baseline hemoglobin prior to admission is 13.5. It went as low as 8.1. Today is 9.1 Xarelto has been since then. He received 2 units PRBC on 01/25/18 GI was consulted to rule out GIB. FOBT negative. Recomennd outpt follow up (9) SIRS (systemic inflammatory response syndrome) Current Visit: Yes Status: Resolved Assessment and plan: 2 Criteria; leukocytosis and tachycardia. - Pt HR today is 66. WBC is 17.4, likely due to prednisone ... no clear source of infx. Currently on emperic antibiotic therapy, Zosyn. Vancomycin discontinued 01/29. CRP 54 on 01/29, now 16 (10) Acute kidney injury Current Visit: Yes Status: Resolved Assessment and plan: Acute on chronic kidney injury - resolved. Likely due to hypotension. Resolved (11) Adrenal insufficiency Current Visit: Yes Status: Acute Assessment and plan: Acute stress/illness vs steroid tx vs tapering from home gout rx. Long steroid taper on discharge. (12) Atrial fibrillation Current Visit: No Status: Chronic Assessment and plan: Xarelto is held. HR controlled, not on home metoprolol. Resume home Toprol if HR > 60. - May need to resume Xarelto as outpatient. Qualifiers: Atrial fibrillation type: chronic Qualified Code(s): I48.2 - Chronic atrial fibrillation (13) Hyperbilirubinemia Current Visit: Yes Status: Acute Assessment and plan: Bilirubin today is 1.5 . Does not appear jaundiced. Denies abd pain, RUQ was unremarkable, pt has cholecystectomy. Will check GGT since alk phos is elevated , bone vs biliary tract involvement - Time Spent With Patient Total time spent is greater than 50% in coordination of care (as documented) at patient's floor/unit and/or counseling patient: - Subjective Interval history: No acute events. Gout improved. Edema improving but still significantly more than what he is used to. Denies SOB, CP, fevers/chills, hip pain. - Constitutional Vitals: Temp Pulse Resp BP Pulse Ox 97.7 F 76 16 110/53 99 02/01/18 16:58 02/01/18 16:58 02/01/18 16:58 02/01/18 16:58 02/01/18 16:58 General appearance: Present: cooperative, A&O X 3, obese Exam: - Head Head exam: Present: atraumatic, normal inspection - Neck Neck exam general surgery: Present: supple - Respiratory Respiratory exam: Present: CTAB - Cardiovascular Cardiovascular exam: Present: RRR, +S1, +S2 - GI/Abdominal GI/Abdominal exam: Present: normal bowel sounds, soft, no peritoneal signs - Incison Incision: Present: clean and dry - Neurological Exam Neurological exam: Present: no focal deficits - Psychiatric Psychiatric exam: Present: normal mood - Skin Skin exam: Present: intact Internal Medicine: Result - Labs CBC & Chem 7: 02/01/18 01:09 02/01/18 01:09 Labs: Short CBC 02/01/18 Range/Units 01:09 WBC 18.3 H (4.3-11.1) K/mcL Hgb 9.2 L (12.9-16.9) g/dL Hct 28.8 L (37.5-50.1) % Plt Count 211 (140-400) K/mcL Neutrophils # 15.5 H (1.6-8.9) K/mcL BMP 02/01/18 01:09 Sodium 131 L Potassium 4.3 Chloride 99 Carbon Dioxide 28 BUN 33 H Creatinine 1.11 Glucose 153 H Calcium 9.1 Liver Function 02/01/18 Range/Units 01:09 GGT 168 H (2-30) Units/L - ABG Interpretation ABG results: PT/INR, D-dimer PT 18.5 Seconds (9.4-12.1) H 01/24/18 06:41 - VTE Documentation of Mechanical Device: Venous foot pump, device Consult Discharge Plan - Plan Referrals: NONE,PCP [Primary Care Provider] - Prescriptions: Doxycycline Hyclate 100 mg PO BID 10 Days #20 tablet
[2018-02-01] MEDS: Insulin DETEMIR 100 UNIT/ML X5UNITS SQ SCH (20:29)
[2018-02-01] MEDS: Melatonin 3 MG TABLET PO SCH (20:30)
[2018-02-01] MEDS: Doxycycline 100 MG CAPSULE PO SCH (20:30)
[2018-02-02] MEDS: Insulin LISPRO 300 UNITS/3 ML VIAL SQ SCH ×2 (07:59→12:14)
[2018-02-02] MEDS: Doxycycline 100 MG CAPSULE PO SCH (08:08)
[2018-02-02] MEDS: Multivit/Ca/Min/Fe/FA 1 TAB TABLET PO SCH (08:08)
[2018-02-02] MEDS: predniSONE 20 MG TABLET PO SCH (08:08)
[2018-02-02] MEDS: Metoprolol XL (24 HR) Succ 25 MG TAB.ER.24H PO SCH (08:08)
[2018-02-02] MEDS: Furosemide 20 MG/2 ML VIAL IVP SCH (08:09)
[2018-02-02] MEDS: Ascorbic Acid 500 MG TABLET PO SCH (08:09)
--- NOTE | 2018-02-02 08:25 | Discharge Summary ---
- NOTES TO OUTPATIENT PROVIDER Notes to Outpatient Provider: Pt was admitted for right hip fx. He had it surgically repaired. He had a consistenly elevated WBC count, which we thought was a leukemoid rxn vs side affect from the prednisone he was on for gout. He continually had low sodium and was hypotensive. Sepsis precautions were taken and pt was on vanc/zosyn. All cultures were negative. Due to the low hemoglobin , a hematoma was ruled out and so was a GI bleed via FOBT. GI was consulted to see and said he could follow up as an outpatient basis. Due to persistently low BP and hyponatremia, a random cortisol was taken and pt was treated for adrenal insufficiency with stress dose steroids. He was tapered from steroids. Pt is recommended to follow up for adrenal insufficiency with PCP. Pt is educated on steroid tapering. He will be discharged on Lasix instead of torosemide due to preference. PCP to titrate Toprol back up - restarted on 12.5mg. PCP to follow up on Xarelto and Lasix. Orders not resulted at time of discharge: Pending orders 01/24/18 14:36 US anesthesia pain block [US] Routine Date of Encounter: 02/02/18 Time of Encounter: 07:30 - Discharge Diagnosis (1) Adrenal insufficiency Priority: Primary Status: Acute Assessment and Plan: Acute stress/illness vs steroid tx vs tapering from home gout rx. Long steroid taper on discharge. Follow up with PCP for adrenal insufficiency (2) CHF (congestive heart failure) Priority: Secondary Status: Chronic Assessment and Plan: Home PO Torsemide is discontinued. Will d/c on Lasix. ECHO showed LVEDF of 50% Pt is encouraed to eat a low salt, low fat, low cholesterol diet . Qualifiers: Heart failure type: diastolic Heart failure chronicity: chronic Qualified Code(s): I50.32 - Chronic diastolic (congestive) heart failure (3) CKD (chronic kidney disease), stage III Priority: Secondary Status: Chronic Assessment and Plan: CKD stage 3 (4) Diabetes mellitus Priority: Secondary Status: Chronic Assessment and Plan: Pt has poorly controlled DM. He should follow up with PCP for adequate control plan. Insulin Lispro from low to medium dose q6hr was used in the hospital Patient is consled on eating a diabetic, heart healthy diet . 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 Post op stress rxn vs leukemoid rxn vs steroid therapy Pt WBC today is 18.3 Most likely from the steroid treatment Qualifiers: Leukocytosis type: leukemoid reaction Qualified Code(s): D72.823 - Leukemoid reaction (6) Gout Priority: Secondary Status: Chronic Assessment and Plan: s/s worsened a few days ago post op, has improved with steroids. Known hx of gout. Pt refused colchicine due to side affect profile Qualifiers: Gout site: toe Gout etiology: unspecified cause Chronicity: unspecified Laterality: right Qualified Code(s): M10.9 - Gout, unspecified (7) DVT prophylaxis Priority: Secondary Status: Acute Assessment and Plan: Pt had compression device for legs . (8) Acute blood loss as cause of postoperative anemia Priority: Primary Status: Acute (9) Status post total hip replacement, right Priority: Primary Status: Acute Assessment and Plan: Pt tolerated procedure well. PTOT to continue to attempt to ambulate. Incision is clean and intact. He was on doxycycline prophylaxis. Hospital stay was complicated by severe hypotension likely from adrenal insufficiency. Hypotension resulted in PING that has resolved. He also had a gout flare as well. Patient is fluid overloaded while being resuscitated. Now that kidney function is normal he has been tolerating diuresis well. He still has significant edema in lower extremities. Was diursed with spironolactone and lasix. Disposition for discharge: Discharge on Prednisone taper D/c on lasix PO. DIscontinue torosemide May need to restart Xarelto on discharge - follow up with PCP Awaiting re-approval to swing bed/ECF - pt to go to [place] (10) Atrial fibrillation Priority: Secondary Status: Chronic Assessment and Plan: Toprol 12.5mg restarted. PCP to titrate back up PCP decide is Xarelto should be restarted. Was held in hospital Qualifiers: Atrial fibrillation type: chronic Qualified Code(s): I48.2 - Chronic atrial fibrillation (11) Hyperbilirubinemia Priority: Secondary Status: Acute Assessment and Plan: Last bilirubin taken 1.5 . Does not appear jaundiced. Denies abd pain, RUQ was unremarkable, pt has cholecystectomy. Hospital course: Mr. Martinez is a 62 year old male who was admitted for rt hip fx. He had it surgically repaired. He continuously had an elevated WBC count, which was thought to be leukemoid rxn from prednisone vs leukemoid rxn vs stress rxn from surgery. Sepsis protocal was put in place because of possible infxn s/p surgery. He was given Vanc and Zosyn. BC were continually negative and there was no clear source of infxn. Pt was also hypotensive and had hyponatremia. He was found to have adrenal insufficiency. Pt was given stress dose steroids and stabilized He is being discharged today on steroid taper (2o mg for 3days, 10mg 3 days, 5 mg five days). Switching torosemide to Lasix as per patient preference He will go to [facility] and is to follow up with Stevan Griffin in the residency clinic in 1month. Pt instructured to get cbc and bmp done wednesday. Pt encouraged to eat a renal and cardiac diet, low fat/low cholesterol/low sodium. Discharge discussed with: patient Time spent discussing smoking cessation with patient: 3 to 10 minutes - Time Spent with Patient Total time spent providing and/or coordinating discharge services: Less than 30 minutes - Discharge Medications Prescriptions: Doxycycline Hyclate 100 mg PO BID 10 Days #20 tablet Furosemide [Lasix] 40 mg PO BID #60 tablet predniSONE [PredniSONE] 10 mg PO TAPER #12 tablet Home Medications: Sertraline [Zoloft] 100 mg PO DAILY 05/15/16 [History] Cinnamon Bark [Cinnamon] 1,000 mg PO BID 10/23/17 [History] Melatonin 10 mg PO HS 10/23/17 [History] Rivaroxaban [Xarelto] 20 mg PO DAILY 10/23/17 [History] Tamsulosin [Flomax] 0.4 mg PO DAILY 10/23/17 [History] Polyethylene Glycol 3350 [MiraLAX] 17 gm PO DAILY 01/21/18 [History] SitaGLIPtin [Januvia] 100 mg PO DAILY 01/21/18 [History] Aspirin [Adult Aspirin Regimen] 81 mg PO DAILY 01/22/18 [History] C/Sourcherry/Celery/Grape Seed [Tart Willard Capsule] 1 cap PO DAILY 01/22/18 [ History] Insulin ASPART [Novolog Flexpen] 2 unit SQ TIDWM 01/22/18 [History] Insulin Glargine,Hum.rec.anlog [Toujeo Solostar] 15 units SQ HS 01/22/18 [ History] Multivitamin [One Daily Essential] 1 tab PO DAILY 01/22/18 [History] Omeprazole/Sodium Bicarbonate [Zegerid 20 mg Capsule] 1 cap PO Q48H PRN [History] Potassium Chloride [Klor-Con 10] 10 meq PO BID 01/22/18 [History] Doxycycline Hyclate 100 mg PO BID 10 Days #20 tablet 01/28/18 [Rx] Cyclobenzaprine [Flexeril] 5 mg PO TID PRN tablet 02/02/18 [Rx] Furosemide [Lasix] 40 mg PO BID #60 tablet 02/02/18 [Rx] Metoprolol XL (24 HR) Succ [Toprol Xl] 12.5 mg PO DAILY #0 tab.er.24h 02/02/18 [ Rx] predniSONE [PredniSONE] 10 mg PO TAPER #12 tablet 02/02/18 [Rx] Allergies/Adverse Reactions: 3 Allergy/AdvReac Type Severity Reaction Status Date / Time tetanus toxoid, adsorbed Allergy Hives Verified 01/22/18 10:11 NSAIDS (Non-Steroidal AdvReac See Verified 01/22/18 10:38 Anti-Inflamma Comments Date of admission: 01/21/18 18:06 Primary care physician: PCP NONE Consults: 01/21/18 17:33 Consult to Cardiology [CONS] Routine Comment: Consulting Provider: Cardiology [place] Reason for Consult: preop clearance Call Completed: No Consult to Orthopedic Surgery [CONS] Routine Consulting Provider: Orthopedics [facility] Reason for Consult: right fem neck fracture Call Completed: Yes 01/24/18 17:49 Consult to Nurse Navigator [CONS] Routine Comment: ortho navigator Consult to Occupational Therapy [CONS] Routine Comment: Evaluate, develop and implement POC Reason for Consult: total hip replacement Does patient have active BEDREST order?: No Is patient medically & hemodynamically stable?: Yes Consult to Physical Therapy [CONS] Routine Comment: Evaluate, develop and implement POC Reason for Consult: total hip replacement Does patient have active BEDREST order?: No Is patient medically & hemodynamically stable?: Yes Consult to Senior Java Programmer Analyst [CONS] Routine Reason for SW Consult: post op joint replacement RT Post Op Consult [CONS] Routine 01/26/18 09:48 Consult to Pulmonology [CONS] Routine Consulting Provider: [facility] [place] Reason for Consult: hypotension, possible septic shock Call Completed: Yes 01/27/18 16:40 Consult to Gastroenterology [CONS] Routine Consulting Provider: Gastroenterology [place] Reason for Consult: rule out GI bleed Call Completed: No 01/28/18 10:11 Consult to Infectious Diseases [CONS] Routine Consulting Provider: Infectious Disease [place] Reason for Consult: suspect sepsis of unknown source Call Completed: Yes - Constitutional Vitals: Temp Pulse Resp BP Pulse Ox 98.1 F 71 17 129/74 100 02/02/18 07:07 02/02/18 07:07 02/02/18 07:07 02/02/18 07:07 02/02/18 07:07 General appearance: Present: cooperative, A&O X 3, obese - Head Head exam: Present: normal inspection - Neck Neck exam general surgery: Present: supple - Respiratory Respiratory exam: Present: CTAB - Cardiovascular Cardiovascular exam: Present: RRR, +S1, +S2 - GI/Abdominal GI/Abdominal exam: Present: normal bowel sounds, no peritoneal signs - Incison Incision: Present: clean and dry, intact - Skin Skin exam: Present: intact - Patient Status Disposition: Transfer Hospital Swing Bed Condition: Good Functional capacity at discharge: uses cane/walker Overall status at discharge: patient is progressing back to baseline - Discharge Instructions Follow Up With: Stevan Griffin [Resident] - 03/02/18 (Follow up on Lasix, Toprol, Xaralto, and BMP, CBC, and adrenal insufficiency) Additional Instructions: Discharge Instructions: Total Hip Replacement Please call [facility] ([phone]), your Primary Care Physician, or report to the Emergency Room if you have any of the following symptoms: Nausea, vomiting, fever greater that 101.5, swelling, chest pain, shortness of breath, increased pain/redness/drainage/odor for your incision site, numbness/ tingling, or any other concerning symptoms. ACTIVITY:Weight-bearing as tolerated for 8 weeks with hip dislocation precautions that physical therapy taught you. You may progress as tolerated under the guidance of your physical therapist. You do not need to sleep with a pillow between your legs. You can also seep on the operative side or on your stomach. MEDICATIONS: Upon discharge resume your home medications. Take all the medications as prescribed. Take a stool softener if taking narcotic pain medications. Stool softeners are only effective if you drink enough fluids. Drink 6-8 glass of water or fluids a day, unless this is not allowed for another health problem. Despite using stool softeners, if you haven't had a bowel movement in 3 days, please switch to a gentle laxative. Gentle laxatives are sold over the counter. You should have a bowel movement within 24 hours, if not call the office. You will be discharged from the hospital with a prescription for pain medication. You are encouraged to decrease the use of narcotic pain medication as tolerated. Should you require a refill, please call the office. [facility] prescribes narcotic pain medication for only 4-6 weeks after surgery. If you require pain medication beyond this time period, you may be referred to your Primary Care Physician or to the Pain Clinic for further evaluation. Plan ahead for refills on pain medication as many narcotics either need to be picked up at the office or mailed. It is best to call 48-72 hours in advance of needing a prescription refill so you don't run out of medication. To help control the post-operative pain, you may take NSAIDs (Aleve,Advil, Motrin, ibuprofen, naprosyn) or Tylenol as prescribed on the bottle in addition to the pain medication. ANTICOAGULATION (blood thinners): Continue your Aspirin, Lovenox or Coumadin as prescribed to help prevent a blood clot in the leg or in the lungs. As long as your incision remains dry and you tolerate the NSAIDs (Aleve, Advil, Motrin, Ibuprofen, Naprosyn), it is OK to use the NSAIDS while you are taking your anticoagulation medication. Should your incision start to drain, stop the NSAID and contact our office. Common symptoms of blood clot in the legs include: localized pain, swelling, calf tenderness, redness or discoloration of the skin. Blood clot in the lung symptoms include: shortness of breath, rapid pulse, sweating, and chest pain that worsens with deep breathing, coughing up blood, lightheadedness, feelings of anxiety. If you experience any of these symptoms notify your physician immediately, go to the emergency room, or if having trouble breathing, call 911. WOUND CARE: Leave the dressing on for 7 to 10days. You may change the dressing if it is saturated greater than 50%. Do not get the dressing wet at anytime. Wash your hands with antibacterial soap, rinse and dry prior to any wound care. If you have mora the visiting nurse or rehab facility can remove the stapes 10-14 days after surgery and place steri-strips across the wound. Leave the steri-strips in place until they fall off on their own. You may let water from the shower run on top of the steri-strips. If you do not have a visiting nurse or rehab facility, you will need to return to the office at 10-14 days for the mora to be removed. If you have itching or redness around the dressing call the office. FOLLOW-UP: Please follow up with your surgeon in the orthopedic clinic in 6 weeks from the day of surgery. If you have mora that need to be removed, you will need to come back to the office in 10-14 days from the day of surgery. - Diet and Activity Activity: as per physical therapy Diet: diabetic diet, low fat, low cholesterol, low salt diet - VTE Documentation of Mechanical Device: Venous foot pump, device
--- NOTE | 2018-02-02 09:05 | Physician Discharge Referral ---
ExtendedCare Referral Info Transfer To: [facility] Provider in Charge: Dr. Rodriguez Provider in Charge after Transfer: PCP (Follow up next Wednesday with Stevan Griffin) Institutional Level of Care: Skilled - Diagnosis (1) Status post total hip replacement, right Priority: Primary Status: Acute (2) Adrenal insufficiency Priority: Secondary Status: Acute (3) SIRS (systemic inflammatory response syndrome) Priority: Secondary Status: Resolved (4) CHF (congestive heart failure) Priority: Secondary Status: Chronic (5) CKD (chronic kidney disease), stage III Priority: Secondary Status: Chronic (6) Diabetes mellitus Priority: Secondary Status: Chronic (7) Leukocytosis Priority: Secondary Status: Acute (8) Gout Priority: Secondary Status: Chronic (9) DVT prophylaxis Priority: Secondary Status: Acute (10) Acute blood loss as cause of postoperative anemia Priority: Secondary Status: Acute (11) Acute kidney injury Priority: Secondary Status: Resolved (12) Atrial fibrillation Priority: Secondary Status: Chronic (13) Hyperbilirubinemia Priority: Secondary Status: Acute - Transfer Medications Prescriptions: Doxycycline Hyclate 100 mg PO BID 10 Days #20 tablet Furosemide Oral Soln [Lasix] 40 mg PO BID #14 tab predniSONE [PredniSONE] 10 mg PO TAPER #12 tablet Home Medications: Sertraline [Zoloft] 100 mg PO DAILY 05/15/16 [History] Cinnamon Bark [Cinnamon] 1,000 mg PO BID 10/23/17 [History] Melatonin 10 mg PO HS 10/23/17 [History] Rivaroxaban [Xarelto] 20 mg PO DAILY 10/23/17 [History] Tamsulosin [Flomax] 0.4 mg PO DAILY 10/23/17 [History] Polyethylene Glycol 3350 [MiraLAX] 17 gm PO DAILY 01/21/18 [History] SitaGLIPtin [Januvia] 100 mg PO DAILY 01/21/18 [History] Aspirin [Adult Aspirin Regimen] 81 mg PO DAILY 01/22/18 [History] C/Sourcherry/Celery/Grape Seed [Tart Willard Capsule] 1 cap PO DAILY 01/22/18 [ History] Insulin ASPART [Novolog Flexpen] 2 unit SQ TIDWM 01/22/18 [History] Insulin Glargine,Hum.rec.anlog [Toujeo Solostar] 15 units SQ HS 01/22/18 [ History] Multivitamin [One Daily Essential] 1 tab PO DAILY 01/22/18 [History] Omeprazole/Sodium Bicarbonate [Zegerid 20 mg Capsule] 1 cap PO Q48H PRN [History] Potassium Chloride [Klor-Con 10] 10 meq PO BID 01/22/18 [History] Doxycycline Hyclate 100 mg PO BID 10 Days #20 tablet 01/28/18 [Rx] Cyclobenzaprine [Flexeril] 5 mg PO TID PRN tablet 02/02/18 [Rx] Furosemide Oral Soln [Lasix] 40 mg PO BID #14 tab 02/02/18 [Rx] Metoprolol XL (24 HR) Succ [Toprol Xl] 12.5 mg PO DAILY #0 tab.er.24h 02/02/18 [ Rx] predniSONE [PredniSONE] 10 mg PO TAPER #12 tablet 02/02/18 [Rx] Allergies/Adverse Reactions: 3 Allergy/AdvReac Type Severity Reaction Status Date / Time tetanus toxoid, adsorbed Allergy Hives Verified 01/22/18 10:11 NSAIDS (Non-Steroidal AdvReac See Verified 01/22/18 10:38 Anti-Inflamma Comments - Respiratory Orders None Smoking Cessation: Smoking cessation has been advised. For more information, call the [place] Tobacco Quit Line at 9-382-CSMD-NOW. - Lab Orders Lab Orders: CBC, Other (include drug levels w/frequency) (BMP) - Ancillary Orders May use pressure relief devices daily prn - Advance Directives Code Status: Full Code - Mobility Orders Chair, Ambulate - Rehabiliation Orders Rehab Potential: Good Rehab Orders: ROM Exercises, Evaluation for Physical Therapy, Evaluation for Occupational Therapy - Diet Orders No Added Salt (ELIN), Renal, Cardiac CERTIFICATION: I certify that the transfer of the above named patient to an Extended Care Facility is necessary for the continuing treatment of the diagnosis listed. The above information is true and accurate reflection of patient's current condition. Confidential - Redisclosure prohibited without a patient's written consent.
[2018-02-02 11:38] VITALS: BP 117/68
== END 2018-02-02 13:17 | disposition other institution (70) | DRG 469 ==
LOC: 3NENU → SUATTDRO 18:06
PROVIDERS: ADMIT Internal Medicine; ATTEND Internal Medicine